=== PATIENT | male | born 1975 | race Caucasian/White ===

== ENCOUNTER 2017-08-13 14:15 | Outpatient (RCR) | payer MEDICAID, SELFPAY ==
[2017-01-25 12:53] VITALS: BMI 38.2
[2017-07-30 00:32] VITALS: BP 170/60; BP 90/58
== END 2017-08-29 23:59 ==
LOC: CR 14:15
PROVIDERS: Family Provider Internal Medicine; PCP Internal Medicine; Visit Provider Internal Medicine Cardiovascular Disease
DX: Z95.5 Presence of coronary angioplasty implant and graft (principal); I25.10 Atherosclerotic heart disease of native coronary artery without angina pectoris; I10 Essential (primary) hypertension; E78.5 Hyperlipidemia, unspecified; G47.33 Obstructive sleep apnea (adult) (pediatric); F17.200 Nicotine dependence, unspecified, uncomplicated
CPT/HCPCS: 93798

== ENCOUNTER 2017-08-20 06:25 | Day surgery (SDC) | payer MEDICAID, SELFPAY ==
[2017-01-25 12:53] VITALS: BMI 38.2
[2017-08-17 14:20] VITALS: BMI 42.4
[2017-08-20] VITALS (26 sets, daily range): BP systolic 85–126; BP diastolic 38–78; PULSE 53–71; RESP 11–21; TEMP 35.9–36.7; O2SAT 91–99; BMI 38.4
[2017-08-20 09:26] LABS: ACT Activated Clotting Time 219 sec (74-137)
--- NOTE | 2017-08-20 09:30 | EKG12_ITS ---
Test Reason : POST-PCI Blood Pressure : / mmHG Vent. Rate : 058 BPM Atrial Rate : 058 BPM P-R Int : 146 ms QRS Dur : 082 ms QT Int : 410 ms P-R-T Axes : 034 013 018 degrees QTc Int : 402 ms Sinus bradycardia Otherwise normal ECG When compared with ECG of 26-JAN-2017 05:29, No significant change was found Confirmed by HARRISON LIU ([id number]), manager editorial RIA RAMOS ([id number] on 08/23/2017 1:26:59 PM Referred By: Harrison Liu Confirmed By:HARRISON LIU
--- NOTE | 2017-08-20 09:34 | CRPHASE1 ---
Patient Data/Charges Former Patient:: Phase II - Pt is currently a phase II pt in cardiac rahab. Risk Factors/Lifestyle Family History: Family History (Last Updated 08/15/17 @ 09:53 by Gunner Lynch) Father Heart disease Brother CAD (coronary artery disease)
--- NOTE | 2017-08-20 09:35 | CRPH1.INSTRU ---
General Education CAD and cardiac anatomy and function:: Not instructed - Pt is a current Cardiac Phase II patient.
--- NOTE | 2017-08-20 09:39 | CL.I_ITS ---
Patient Name: HU PEREZ Study Date: 08/20/2017 Performing: Haider Liu MD Ht: 61.81 inches 157 cm : 1975 Wt: 231.49 lbs 105 kg Age: 41 Gender: male BSA: 2.03 PROCEDURE(S) PERFORMED WB90-EQB/COR/LV BI36-CYL W OR WO PTCA, SINGLE CORONARY ARTERY CLINICAL PROFILE AND CO-MORBIDITIES INDICATIONS: Unstable Angina Stress/Imaging Stress Echocardiogram: Yes Result: Indeterminant Stress Echocardiogram: Indetermin ant Angina Classification Anginal Classification w/in 2 Weeks: CCS III CAD Presentations: Unstable angina. Comorbidities/Risk Factors: Current/Recent Smoker (< 1year) Hypertension Dyslipidemia Prior NC Prior PCI CONCLUSIONS Single vessel CAD of the Proximal RCA Normal LV size, wall motion,and systolic function Non obstructive coronary arteries Successful PTCA/YOHANA of the proximal RCA with a 2.5 x 32 Promus Synergy, post dilated with a 3.0 x 12 NC balloon. 75%-->0%, no dissection. RECOMMENDATIONS Referred for immediate PCI Highly recommend quitting all tobacco products Follow up with primary blade groover Risk factor modification ASA Indefinitley Plavix for at least 12 months Routine post interventional care Refer for Outpatient Cardiac Rehab Manual sheath removal per protocol Manual sheath removal. Tobacco cessation. DESCRIPTION OF PROCEDURE The patient arrived to the procedure lab. The risks and benefits of the procedure as well as a full d escription of our services here and lack of surgical backup were fully explained to the patient and/o r their significant other prior to the catheterization. The Timeout was completed, verifying the jose raul ect patient and procedure. The patient's procedural site was prepped and draped in the usual fashion. Local anesthetic was given subcutaneously to right groin region with Lidocaine 2%. Using a modified Seldinger technique, arterial access was obtained via the right femoral artery, a 4Fr sheath was inse rted. Left Coronary Artery selective angiography was performed in multiple views using a 4 Fr. JL5 c atheter. Left Coronary Artery selective angiography was performed in multiple views using a 4 Fr. JL4 catheter. Right Coronary Artery selective angiography was then performed in multiple views using a 4 Fr. 3DRC catheter. Left Ventriculography was performed in PASTRANA projection using a [address] LV to AO pullback pressures were then recorded Arterial sheath was exchanged for a 6 Fr Sheath HS I Guide catheter was inserted and engaged into the RCA. Santa [place]sabel Wire Guide wire was advanced to the RCA. 2.0 by 12 emerge Balloon catheter was insert ed. Balloon catheter was advanced across lesion in the right coronary, proximal. 2.[address] ug Eluting stent was inserted Drug Eluting stent was advanced across the lesion in the right coronary , proximal. 2.5 by 12 NC Balloon catheter was inserted. Balloon catheter was inserted post stent. 3.0 by 12 NC Balloon catheter was inserted. Balloon catheter was inserted post stent.. . The arterial s junior was sutured in place and capped. CORONARY ANGIOGRAPHY DOMINANCE: Right Dominant LEFT HEART ASSESSMENT Left Ventricular Ejection Fraction: by LV Gram 65 % Normal Left Ventricular systolic function Normal Left Ventricular End Diastolic Pressure Normal LV wall motion LEFT MAIN: Angiographically normal LEFT ANTERIOR DECENDING ARTERY: MID LAD: 40 % Stenosis CIRCUMFLEX ARTERY: Mild luminal irregularities less than 30% OM 1: Proximal - Instent restenosis 10 % RIGHT CORONARY ARTERY: PROX RCA: 75 % Stenosis RT PDA: Proximal - Angiographically normal INTERVENTION INFORMATION LESION SITE: RCA (Proximal) Lesion Complexity: High/C, lesion at bifurcation: Yes, thrombus present: No, lesion length: 32 mm, cu lprit lesion: Yes Pre Stenosis: 75 % Pre intervention CHETAN flow: 3 PROCEDURE: Drug Eluting Stent with pre and post dilatation Post Stenosis: 0 % Post intervention CHETAN flow: 3 Lesion Devices: Evomailtronic 6 Fr HS1 100cm Guide Catheter Baron .014 [employer] [place] Straight 190cm [employer] EMERGE MR 2.00x12 BALLOON [employer] Synergy MR YOHANA 2.50x32 Jay [employer] NC EMERGE MR 2.50x12 BALLOON Jay [employer] NC EMERGE MR 3.00x12 BALLOON COMPLICATIONS No Complications PROCEDURE MEDICATIONS Oxygen: 2 L/min via nasal cannula Heparin 6000 unit(s) IV 08/20/2017 08:53:35 Nitro 200 mcg IC 08/20/2017 08:48:05 Nitro 200 mcg IC 08/20/2017 08:48:05 IV Bolus: .9 NaCl 350 ml total 08/20/2017 09:12:32 IV Fluids: .9 NaCl increased to wide open ml/hr 08/20/2017 08:56:02 IV Fluids: .9 NaCl decreased to KVO ml/hr 08/20/2017 09:12:37 SUMMARY OF HEMODYNAMIC DATA Time AIR REST ECG 07:01:33 AO 109/78 (93) SA 08:41:32 LV 117/-11, 15 08:51:32 LV 116/-11, 15 08:51:39 LV 118/-10, 14 08:51:53 LVp 119/-10, 14 08:51:57 AOp 115/68 (89) 08:52:02 AO 121/75 (94) 08:55:50 Signed By Haider Liu MD On 08/20/2017 09:39:23 Haider Liu MD
[2017-08-20] MEDS: 0.9% Normal Saline 1,000 ML 150 ML IV (10:02)
--- NOTE | 2017-08-20 10:09 | NURSING ---
Alerted to back wounds from pt's Filomena- x2 wounds w/ sutures in place. Unable to assess at this time d/t bedrest from heart cath. Will assess when able to move pt from side to side.
[2017-08-20 10:28] LABS: Hematocrit 40.4 % (40-54); Hemoglobin 13.2 g/dl (13.0-16.5); Mean Corp Hgb Conc 32.7 g/gl (32-36); Mean Corpuscular Hgb 30.1 pg (27.0-32.0); Mean Corpuscular Volume 92.2 fL (80-94); Platelet Count 217 K/mm3 (150-450); RBC Distribution Width CV 13.7 % (11.6-14.6); RBC Distribution Width SD 46.5 fl (35.1-43.9); Red Blood Count 4.38 M/mm3 (4.6-6.2); White Blood Count 8.9 K/mm3 (4.4-11.0)
[2017-08-20 10:32] LABS: Scan Indicated on CBC? Y/N NO
[2017-08-20 10:34] LABS: CPK Total, Creatine Kinase 94 U/L (39-308)
[2017-08-20 11:26] LABS: ACT Activated Clotting Time 147 sec (74-137)
--- NOTE | 2017-08-20 11:26 | NURSING ---
Spoke w/ Zeke in labor and delivery registered nurse; he will be coming to pull sheath
--- NOTE | 2017-08-20 13:56 | PCM.DC.CCA ---
Discharge Diet: Low fat/ Low Cholesterol Discharge Activity: Return to Normal Activity May shower in (days): 1 May resume sexual activity in: 10-14 days Lifting Restrictions: Do not lift anything greater than 10 pounds for three days. Call your doctor if your incision/area has: Continuous Slow Oozing, Sudden Increased Bleeding, Increased Pain/ Swelling, Increased Redness, Foul Smelling Discharge, Swelling at the incision site Call your doctor if you observe: Fever of 101 or Higher, Shortness of breath, Chest pain Remove Dressing in (days):: 1 Cleanse incision/area with: Soap & Water Additional Instructions: You will continue with Plavix 75mg for at least one year. You will stay on Aspirin indefinitely. If anyone asks you to stop your plavix, please call the [facility] first. Your are scheduled to see Gregorio Wei Nurse Practitioner, in the office on 09/17/17 at 10:30 AM to evaluated how you are doing and discuss cardiac rehab. If you have any questions do not hesitate to call the [facility] at [phone]. Allergies/Adverse Reactions: Allergies Penicillins Allergy (Verified 03/02/16 18:22) Unknown olanzapine [From Zyprexa] Adverse Reaction (Severe, Verified 08/15/17 09:11) aggresion/sleepiness Medications to take at Discharge Aspirin [Aspirin, Baby] 81 mg PO DAILY@0800 03/02/16 Brexpiprazole [Rexulti] 3 mg PO DAILY 01/24/17 Clopidogrel Bisulfate [Plavix] 75 mg PO DAILY #60 tab 01/26/17 Metoprolol Tartrate [Lopressor (beta marely)] 12.5 mg PO BID #30 tab 01/26/17 Nitroglycerin [Nitrostat] 0.4 mg SUBLINGUAL Q5M PRN #1 bottle 01/26/17 insulin glargine 100 unit/mL subcutaneous solution 30 units SC QHS 08/14/17 fenofibrate 54 mg tablet 54 mg PO QDAY 08/15/17 isosorbide mononitrate ER 60 mg tablet,extended release 24 hr 30 mg PO BID #30 tab 08/15/17 metformin 1,000 mg tablet 500 mg PO BID tab 08/15/17 pantoprazole 40 mg tablet,delayed release 40 mg PO QDAY 08/15/17 Primary Care Physician: Maral Balderrama [Primary Care Provider] - Please Follow Up With: Gregorio Wei Nurse Practitioner When: 09/17/2017 @ 10:30 AM Proposed Discharge Date: 08/21/17 Cardiac Rehabilitation Info Cardiac Rehabilitation Program Information: Cardiac Rehabilitation is important for patients like you who are recovering from a heart problem. Cardiac rehabilitation programs are recognized as integral to the continued care of the patient with coronary heart disease. The cardiac rehabilitation program is designed to optimize a patient's physical, psychological, and social functioning. Health child care lead teacher work in cardiac rehabilitation programs and assist you with getting the treatments you need to get stronger and healthier - like exercise, healthy eating habits, and medications. Cardiac rehabilitation has been show to help people with heart problems live longer and have better life enjoyment than people who do not go to cardiac rehabilitation. Please contact the Cardiac Rehabilitation Program at [facility] at in two weeks if you have not heard from them.
--- NOTE | 2017-08-20 14:02 | DCINST_ITS ---
Discharge Diet: Low fat/ Low Cholesterol Discharge Activity: Return to Normal Activity May shower in (days): 1 May resume sexual activity in: 10-14 days Lifting Restrictions: Do not lift anything greater than 10 pounds for three days. Call your doctor if your incision/area has: Continuous Slow Oozing, Sudden Increased Bleeding, Increased Pain/ Swelling, Increased Redness, Foul Smelling Discharge, Swelling at the incision site Call your doctor if you observe: Fever of 101 or Higher, Shortness of breath, Chest pain Remove Dressing in (days):: 1 Cleanse incision/area with: Soap & Water Additional Instructions: You will continue with Plavix 75mg for at least one year. You will stay on Aspirin indefinitely. If anyone asks you to stop your plavix, please call the [facility] first. Your are scheduled to see Gregorio Wei Nurse Practitioner, in the office on at 10:30 AM to evaluated how you are doing and discuss cardiac rehab. If you have any questions do not hesitate to call the [facility] at . Allergies/Adverse Reactions: Allergies Penicillins Allergy (Verified 03/02/16 18:22) Unknown olanzapine [From Zyprexa] Adverse Reaction (Severe, Verified 08/15/17 09:11) aggresion/sleepiness Medications to take at Discharge Aspirin [Aspirin, Baby] 81 mg PO DAILY@0800 03/02/16 Brexpiprazole [Rexulti] 3 mg PO DAILY 01/24/17 Clopidogrel Bisulfate [Plavix] 75 mg PO DAILY #60 tab 01/26/17 Metoprolol Tartrate [Lopressor (beta marely)] 12.5 mg PO BID #30 tab 01/26/17 Nitroglycerin [Nitrostat] 0.4 mg SUBLINGUAL Q5M PRN #1 bottle 01/26/17 insulin glargine 100 unit/mL subcutaneous solution 30 units SC QHS 08/14/17 fenofibrate 54 mg tablet 54 mg PO QDAY 08/15/17 isosorbide mononitrate ER 60 mg tablet,extended release 24 hr 30 mg PO BID #30 tab 08/15/17 metformin 1,000 mg tablet 500 mg PO BID tab 08/15/17 pantoprazole 40 mg tablet,delayed release 40 mg PO QDAY 08/15/17 Primary Care Physician: Maral Balderrama [Primary Care Provider] - Please Follow Up With: Gregorio Wei Nurse Practitioner When: 09/17/2017 @ 10:30 AM Proposed Discharge Date: 08/21/17 Cardiac Rehabilitation Info Cardiac Rehabilitation Program Information: Cardiac Rehabilitation is important for patients like you who are recovering from a heart problem. Cardiac rehabilitation programs are recognized as integral to the continued care of the patient with coronary heart disease. The cardiac rehabilitation program is designed to optimize a patient's physical, psychological, and social functioning. Health medical care administrator work in cardiac rehabilitation programs and assist you with getting the treatments you need to get stronger and healthier - like exercise, healthy eating habits, and medications. Cardiac rehabilitation has been show to help people with heart problems live longer and have better life enjoyment than people who do not go to cardiac rehabilitation. Please contact the Cardiac Rehabilitation Program at [facility] at in two weeks if you have not heard from them.
[2017-08-20] MEDS: Pantoprazole Sodium 40 MG Tablet PO (16:33)
[2017-08-20] MEDS: 0.9% NaCl Peripheral Flush Adult/Peds IV ×3 (16:33→21:36)
[2017-08-20 16:52] LABS: Hematocrit 38.7 % (40-54); Mean Corp Hgb Conc 33.6 g/gl (32-36); Mean Corpuscular Hgb 30.9 pg (27.0-32.0); Mean Corpuscular Volume 91.9 fL (80-94); Platelet Count 214 K/mm3 (150-450); RBC Distribution Width CV 13.8 % (11.6-14.6); RBC Distribution Width SD 45.2 fl (35.1-43.9); Red Blood Count 4.21 M/mm3 (4.6-6.2); White Blood Count 10.4 K/mm3 (4.4-11.0)
[2017-08-20 16:53] LABS: Scan Indicated on CBC? Y/N NO
[2017-08-20 17:23] LABS: CPK Total, Creatine Kinase 78 U/L (39-308)
[2017-08-20 21:05] LABS: Hematocrit 40.4 % (40-54); Hemoglobin 13.4 g/dl (13.0-16.5); Mean Corp Hgb Conc 33.2 g/gl (32-36); Mean Corpuscular Hgb 30.4 pg (27.0-32.0); Mean Corpuscular Volume 91.6 fL (80-94); Mean Platelet Vol. 10.6 fl (6.2-12.0); Platelet Count 222 K/mm3 (150-450); RBC Distribution Width CV 13.8 % (11.6-14.6); RBC Distribution Width SD 46.8 fl (35.1-43.9); Red Blood Count 4.41 M/mm3 (4.6-6.2); Scan Indicated on CBC? Y/N NO; White Blood Count 10.4 K/mm3 (4.4-11.0)
[2017-08-20 21:21] LABS: CPK Total, Creatine Kinase 78 U/L (39-308)
[2017-08-20 21:47] LABS: Bedside Glucose 233 mg/dL (70-110)
[2017-08-21] VITALS (15 sets, daily range): BP systolic 86–141; BP diastolic 41–74; PULSE 54–65; RESP 11–20; TEMP 36.4–36.7; O2SAT 91–95
[2017-08-21] MEDS: 0.9% NaCl Peripheral Flush Adult/Peds IV (04:03)
[2017-08-21 04:20] LABS: Hematocrit 40.3 % (40-54); Hemoglobin 13.7 g/dl (13.0-16.5); Mean Corpuscular Hgb 31.1 pg (27.0-32.0); Mean Corpuscular Volume 91.4 fL (80-94); Platelet Count 236 K/mm3 (150-450); RBC Distribution Width CV 13.7 % (11.6-14.6); RBC Distribution Width SD 45.5 fl (35.1-43.9); Red Blood Count 4.41 M/mm3 (4.6-6.2); White Blood Count 10.9 K/mm3 (4.4-11.0)
[2017-08-21 04:23] LABS: Scan Indicated on CBC? Y/N NO
[2017-08-21 04:28] LABS: Anion Gap 8 (5-15); BUN 19 mg/dL (7-18); Calcium,Total 8.7 mg/dL (8.5-10.1); Chloride 107 mmol/L (98-107); EST Glomerular Filtration Rate 99 mL/min (>60); Est Glom Filt Rate - Afr Amer 119 mL/min (>60); Estimated Creatinine Clearance 94.91 ml/min; Glucose 104 mg/dL (70-110); Sodium Level 140 mmol/L (136-145)
--- NOTE | 2017-08-21 05:55 | EKG12_ITS ---
Test Reason : AM EKG Blood Pressure : / mmHG Vent. Rate : 060 BPM Atrial Rate : 060 BPM P-R Int : 134 ms QRS Dur : 082 ms QT Int : 396 ms P-R-T Axes : 016 004 015 degrees QTc Int : 396 ms Normal sinus rhythm Inferior infarct , age undetermined Abnormal ECG When compared with ECG of 26-JAN-2017 05:29, Inferior infarct is now Present Confirmed by HARRISON LIU ([id number]), manuscript editor RIA RAMOS ([id number]) on 08/23/2017 1:47:43 PM Referred By: Harrison Liu Confirmed By:HARRISON LIU
[2017-08-21] MEDS: Clopidogrel Bisulfate 75 MG Tablet PO (09:36)
[2017-08-21] MEDS: Metoprolol Tartrate 25 MG Tablet 12.5 MG PO (09:36)
[2017-08-21] MEDS: Pantoprazole Sodium 40 MG Tablet PO (09:36)
[2017-08-21] MEDS: Isosorbide Mononitrate 30 MG Tablet PO (09:36)
[2017-08-21] MEDS: Fenofibrate 48 MG Tablet PO (09:37)
[2017-08-21] MEDS: Aspirin 81 MG TAB.CHEW PO (09:37)
--- NOTE | 2017-08-21 09:43 | PCM.PN.CARD ---
Subjectve: Patient doing very well this morning. No further chest pain with laying down which was his anginal equivalent. Telemetry negative. EKG normal sinus rhythm, no acute changes. CKs are negative. Right groin is clean/dry/intact without evidence of hematoma, thrills or bruits. Hemoglobin and creatinine are within nominal limits. Objective: Vital Signs Temp Pulse Resp BP Pulse Ox 97.6 F L 65 20 H 122/74 H 93 08/21/17 06:00 08/21/17 09:36 08/21/17 06:00 08/21/17 06:00 08/21/17 06:00 Oxygen Flow Rate 2 Oxygen Delivery Method Room Air Weight: 231 lb Body Mass Index (BMI) 38.4 Intake and Output for Last 24 Hours 08/19/17 08/20/17 08/21/17 23:59 23:59 23:59 Intake Total 1942 / 1942 300 / 300 Output Total 1800 / 1800 600 / 600 Balance 142 / 142 -300 / -300 General: Awake, Alert, Oriented x 3 HEENT: PERRL, EOMI, Sclera Non Icteric Neck: Supple, Good ROM, No Lymph Node Enlargement Lungs: Clear to auscultation Cardiovascular: Regular Rhythm, Normal S1, Normal S2, No Murmurs, No Rubs, No Gallops Vascular: No Carotid Bruits, Normal Femoral Pulses, Normal Radial Pulses, Normal Dorsalis Pedal Pulse, Normal Posterior Tibial Pulses Abdomen: Bowel Sounds Present, Soft, Non Tender, No HSM, No Organomegaly Extremities: No Cyanosis, No Clubbing, No edema Neurological: No Focal Motor or Sensory Deficit 08/20/17 09:45: WBC 8.9, RBC 4.38 L, Hgb 13.2, Hct 40.4, MCV 92.2, MCH 30.1, MCHC 32.7, RDW 13.7, RDW Differential 46.5 H, Plt Count 217, MPV 11.0 08/20/17 16:30: WBC 10.4, RBC 4.21 L, Hgb 13.0, Hct 38.7 L, MCV 91.9, MCH 30.9, MCHC 33.6, RDW 13.8, RDW Differential 45.2 H, Plt Count 214, MPV 11.0 08/20/17 20:50: WBC 10.4, RBC 4.41 L, Hgb 13.4, Hct 40.4, MCV 91.6, MCH 30.4, MCHC 33.2, RDW 13.8, RDW Differential 46.8 H, Plt Count 222, MPV 10.6 08/21/17 04:00: WBC 10.9, RBC 4.41 L, Hgb 13.7, Hct 40.3, MCV 91.4, MCH 31.1, MCHC 34.0, RDW 13.7, RDW Differential 45.5 H, Plt Count 236, MPV 11.0 08/21/17 04:00: Sodium 140, Potassium 4.0, Chloride 107, Carbon Dioxide 25.0, Anion Gap 8, BUN 19 H, Creatinine 0.90, Est GFR (MDRD) Af Amer 119, Est GFR (MDRD) Non-Af 99, BUN/Creatinine Ratio 21.0 H, Glucose 104, Calcium 8.7 Rhythm: EKG: ECHO: Stress Test: Cardiac Cath: PCI: CT Surgery: Holter monitor: EPS: PPM: CXR: Chest CT Scan: Assessment/Plan 1. Coronary artery disease: Patient's chest pain with recumbency has completely resolved with angioplasty and stenting of his RCA yesterday. Hopefully this is his anginal equivalent and has been resolved with angioplasty. Recommend he continue his baby aspirin, Plavix, and antihypertensive medications. Patient will remain off work for 1 week's time to allow his groin to heal and then may resume. He will follow-up per protocol in our office. Once his groin is healed he can resume cardiac rehab. 2. Hyperlipidemia: Continue statin based medications. We will repeat his lipid profile at the conclusion of cardiac rehab. 3. Patient may be discharged home. Code Visit Inpatient E&M: 57421 Subs Hosp L2
--- NOTE | 2017-08-21 09:46 | PN.CARD_ITS ---
Subjectve: Patient doing very well this morning. No further chest pain with laying down which was his anginal equivalent. Telemetry negative. EKG normal sinus rhythm , no acute changes. CKs are negative. Right groin is clean/dry/intact without evidence of hematoma, thrills or bruits. Hemoglobin and creatinine are within nominal limits. Objective: Vital Signs Temp Pulse Resp BP Pulse Ox 97.6 F L 65 20 H 122/74 H 93 08/21/17 06:00 08/21/17 09:36 08/21/17 06:00 08/21/17 06:00 08/21/17 06:00 Oxygen Flow Rate 2 Oxygen Delivery Method Room Air Weight: 231 lb Body Mass Index (BMI) 38.4 Intake and Output for Last 24 Hours 08/19/17 08/20/17 08/21/17 23:59 23:59 23:59 Intake Total 1942 / 1942 300 / 300 Output Total 1800 / 1800 600 / 600 Balance 142 / 142 -300 / -300 General: Awake, Alert, Oriented x 3 HEENT: PERRL, EOMI, Sclera Non Icteric Neck: Supple, Good ROM, No Lymph Node Enlargement Lungs: Clear to auscultation Cardiovascular: Regular Rhythm, Normal S1, Normal S2, No Murmurs, No Rubs, No Gallops Vascular: No Carotid Bruits, Normal Femoral Pulses, Normal Radial Pulses, Normal Dorsalis Pedal Pulse, Normal Posterior Tibial Pulses Abdomen: Bowel Sounds Present, Soft, Non Tender, No HSM, No Organomegaly Extremities: No Cyanosis, No Clubbing, No edema Neurological: No Focal Motor or Sensory Deficit 08/20/17 09:45: WBC 8.9, RBC 4.38 L, Hgb 13.2, Hct 40.4, MCV 92.2, MCH 30.1, MCHC 32.7, RDW 13.7, RDW Differential 46.5 H, Plt Count 217, MPV 11.0 08/20/17 16:30: WBC 10.4, RBC 4.21 L, Hgb 13.0, Hct 38.7 L, MCV 91.9, MCH 30.9, MCHC 33.6, RDW 13.8, RDW Differential 45.2 H, Plt Count 214, MPV 11.0 08/20/17 20:50: WBC 10.4, RBC 4.41 L, Hgb 13.4, Hct 40.4, MCV 91.6, MCH 30.4, MCHC 33.2, RDW 13.8, RDW Differential 46.8 H, Plt Count 222, MPV 10.6 08/21/17 04:00: WBC 10.9, RBC 4.41 L, Hgb 13.7, Hct 40.3, MCV 91.4, MCH 31.1, MCHC 34.0, RDW 13.7, RDW Differential 45.5 H, Plt Count 236, MPV 11.0 08/21/17 04:00: Sodium 140, Potassium 4.0, Chloride 107, Carbon Dioxide 25.0, Anion Gap 8, BUN 19 H, Creatinine 0.90, Est GFR (MDRD) Af Amer 119, Est GFR ( MDRD) Non-Af 99, BUN/Creatinine Ratio 21.0 H, Glucose 104, Calcium 8.7 Rhythm: EKG: ECHO: Stress Test: Cardiac Cath: PCI: CT Surgery: Holter monitor: EPS: PPM: CXR: Chest CT Scan: Assessment/Plan 1. Coronary artery disease: Patient's chest pain with recumbency has completely resolved with angioplasty and stenting of his RCA yesterday. Hopefully this is his anginal equivalent and has been resolved with angioplasty. Recommend he continue his baby aspirin, Plavix, and antihypertensive medications. Patient will remain off work for 1 week's time to allow his groin to heal and then may resume. He will follow-up per protocol in our office. Once his groin is healed he can resume cardiac rehab. 2. Hyperlipidemia: Continue statin based medications. We will repeat his lipid profile at the conclusion of cardiac rehab. 3. Patient may be discharged home. Code Visit Inpatient E&M: 93509 Subs Hosp L2
== END 2017-08-21 12:10 | disposition home or self-care (01) ==
LOC: CLSP 06:25 → ICU 09:31
PROVIDERS: Family Provider Internal Medicine; PCP Internal Medicine; Visit Provider Internal Medicine Cardiovascular Disease
DX: I25.10 Atherosclerotic heart disease of native coronary artery without angina pectoris (principal); I10 Essential (primary) hypertension; E11.9 Type 2 diabetes mellitus without complications; E78.5 Hyperlipidemia, unspecified; I24.9 Acute ischemic heart disease, unspecified; F32.9 Major depressive disorder, single episode, unspecified; G47.33 Obstructive sleep apnea (adult) (pediatric); F20.9 Schizophrenia, unspecified; I25.2 Old myocardial infarction; Z72.0 Tobacco use; Z95.5 Presence of coronary angioplasty implant and graft; Z79.82 Long term (current) use of aspirin; Z79.84 Long term (current) use of oral hypoglycemic drugs; Z79.899 Other long term (current) drug therapy
CPT/HCPCS: 80048; 82550; 82962; 85027; 85347; 92928; 93005; 93458; J7030; J7040; A4216; C1725; C1769; C1874; C1887; C1894; C9600; Q9967

== ENCOUNTER → 2017-09-11 07:30 | Outpatient (CLI) | payer MEDICAID, SELFPAY ==
[2017-01-25 12:53] VITALS: BMI 38.2
--- NOTE | 2017-09-11 07:37 | PCM.CR.HP2 ---
CR - History & Physical - General Arrival date:: 09/11/17 Arrival time:: 07:38 Date of Admission: 09/11/17 Referring Physician: Dr. Haider Liu Primary Diagnosis: Unstable angina, PCI w/coronary stent - History of Present Cardiac Event Onset Date: Enter Onset Date of cardiac illnesses in Comment field below Angina:: Yes - 08/20/2017 PTCA:: Yes - 08/20/2017 Type of Symptoms:: unstable angina pectoris resulting in emergency room visit. Alexandra has a previous history of CAD status post coronary stenting to OM #1 in December 2016. Interventions with present event:: Re-do cardiac catheterization Were there any complications?: none - Medications Home Medications: Ambulatory Orders Medication Instructions Recorded Aspirin [Aspirin, Baby] 81 mg PO DAILY@0800 03/02/16 Brexpiprazole [Rexulti] 3 mg PO DAILY 01/24/17 Clopidogrel Bisulfate [Plavix] 75 mg PO DAILY #60 tab 01/26/17 Metoprolol Tartrate [Lopressor 12.5 mg PO BID #30 tab 01/26/17 (beta marely)] Nitroglycerin [Nitrostat] 0.4 mg SUBLINGUAL Q5M PRN #1 bottle 01/26/17 insulin glargine (U-100) 100 30 units SC QHS 08/14/17 unit/mL subcutaneous solution fenofibrate 54 mg tablet 54 mg PO QDAY 08/15/17 isosorbide mononitrate ER 60 mg 30 mg PO BID #30 tab 08/15/17 tablet,extended release 24 hr metformin 1,000 mg tablet 500 mg PO BID tab 08/15/17 pantoprazole 40 mg tablet,delayed 40 mg PO QDAY 08/15/17 release - Allergies Allergies/Adverse Reactions: Allergies Penicillins Allergy (Verified 03/02/16 18:22) Unknown olanzapine [From Zyprexa] Adverse Reaction (Severe, Verified 08/15/17 09:11) aggresion/sleepiness - Sleep Disorder Evaluation Hx of Sleep Apnea: Yes Do you snore loudly (louder than talking or can be heard through closed doors)?: Yes Do you often feel tired/ fatigued/ sleepy during daytime?: Yes Has anyone observed you stop breathing during sleep?: No - Patient is treated for his RENETTA. History of Hypertension (for STOP score): Yes STOP Results: Positive Advanced Directives - Advanced Directives Power of Station Detective: No Living Will: No Advance Directives Information Provided: Yes Advance Directives on File: No DNR Order?:: No Past Medical History - Problems and Co-Morbidities Problems & Co-Morbidities: Smoking - history of tobacco nicotine dependency, Dyslipidemia, Diabetes - Type II DM, Obesity, Hypertension, Depression - Acute, - - Schizophrenia (acute-inactive) - Past Medical Illness Past Medical Illness: Diabetes Other Medical Illnesses:: Acute chest pain (resolved), obstructive sleep apnea - Past Cardiac Illness Past Cardiac Illness: Ejection Fraction - 65%, Coronary Artery Disease, Previous PCI w/Stent - December 2016 Other Cardiac Illnesses:: atherosclerosis of [place] coronary artery wihtout angina pectoris, Acute Coroanry Syndrome, - Cardiology Procedures/Interventions Cardiology Procedures/Interventions: Angioplasty, PCI w/Stenting, Heart Catheterization, Echocardiogram - Past Surgical History Surgical History: appendectomy, cholecystectomy, - - Walking boot due to fracture - Family History Summary Additional Family History: father heart disease, brother CAD Review of Systems - Review of Systems Hints: Right click = Denies ([place]). Left click = Reports ([facility]) Review of Present Symptoms: Reports: Shortness of Breath at Rest, Shortness of Breath with Exertion - sometimes, improved since quit smoking., Angina, Fatigue, Appetite - Normal, Appetite - Special Diet - making changes, but no specific diet plan.. Denies: Dizziness/Lightheadedness, Sleep - Normal - sleep to much, even wearing CPAP at night., Sexual Changes Risk Factor Assessment - Chief Complaint Chief Complaint: Patient is a 41 year old male who presents to cardiac rehab following recent acute angina and chest pain which resulted in an emergency room visit. Patient is under [facility] care of Dr. Haider Liu. The patient was rescheduled for a heart cath procedure which resulted in coronary stenting of [place] coronary artery x one. - Pulse Pulse Rate: 76 - SpO2 96% room air Pulse Rhythm: Regular - Hypertension How long have you been treated?: 1 year On medication(s)?: yes Blood Pressure Sitting - Right Arm: 100/72 - Stress Stress: Recent - pet last night. - Diabetes Diabetic History: Type II, Insulin Dependent Nutrition Referral for Diabetes: Yes - Obesity Height: 5 ft 4 in Weight:: 105.233 kg Weight in Pounds: 232.0 lbs Body Mass Index (BMI): 39.8 Nutritional Referral for Obesity: Yes - Patient could benefit from Diabetic Education and strucutred weight loss. - Physical Inactivity Physical Inactivity: Reg Exercise 30 min/day - Risk Stratification Risk Guidelines: Lowest Risk: Risk Factor for Dyslipidemia, Risk Factor for Hypertension, Risk Factor for Sedentary Lifestyle, Risk Factor for Depression, Moderate Risk: Risk Factor for Diabetes, Highest Risk: Risk Factor for Smoking, Risk Factor for Obesity - For Smoking Smoking Risk Guidelines: Smoking Low Risk: None or quit greater than 6 months ago. Smoking Moderate Risk: Smoker or quit 6 months or less ago. Smoking High Risk: Smoker - For Dyslipidemia Dyslipidemia Risk Guidelines: Low Risk: Moderate Risk: High Risk: 15-25% fat 25.1-29% fat >/= 30% fat. <7% sat fat 7-9% sat fat >9% sat fat. <150 mg chol 150-299 mg chol >/= 300 mg chol. LDL <100 LDL 100-129 LDL >/= 130. Chol/HDL ratio <5.0 Chol/HDL ratio 5.0-6.0 Chol/HDL ratio >6.0. Triglycerides <100 Triglycerides 100-149 Triglycerides >/= 150 - For Diabetes Mellitus Diabetes Risk Guidelines: Diabetes Low Risk: HgA1c <6.5% and/or FBG <120. Diabetes Moderate Risk: HgA1c 6.6-7.9% and/or FBG 120-180. Diabetes High Risk: HgA1c >/= 8% and/or FBG >180 - For Obesity/Overweight Obesity/Overweight Risk Guidelines: Obesity Low Risk: BMI <25.0. Obesity Moderate Risk: BMI 25-29.9. Obesity High Risk: BMI >/= 30.0 - For Hypertension Hypertension Risk Guidelines: Hypertension Low Risk: Systolic <120 and Diastolic <80. Hypertension Moderate Risk: Systolic 120-139 and Diastolic 80-89. Hypertension High Risk: Systolic >/= 140 and Diastolic >/= 90 - For Sedentary Lifestyle Sedentary Lifestyle Risk Guidelines: Sedentary Lifestyle Low Risk: >/= 1,500 kcal/week. Sedentary Lifestyle Moderate Risk: 700-1,499 kcal/week. Sedentary Lifestyle High Risk: < 700 kcal/week - For Depression Depression Risk Guidelines: Depression Low Risk: Not clinically depressed. Depression Moderate Risk: Mildly depressed. Depression High Risk: Clinically depressed - Family History Family History: Family History (Last Updated 08/15/17 @ 09:53 by Gunner Lynch) Father Heart disease Brother CAD (coronary artery disease) Social History - Smoking History Smoking Status: Current some day smoker Years Smokin Packs Smoked per Day: 2 Hx Smoking Cessation Date: 09/07/2017 Hx Tobacco Use: Yes Hx Smoking Exposure: No - Alcohol Use Alcohol Usage: No - Substance Abuse Hx Substance Use: No - Occupation Occupation (List type of work in comments):: Employed Hours worked per day:: 5 Returned to work on:: 09/13/17 - Hobbies, Recreation, Social Activities Hobbies: Sports, Walking Recreational Activities: I am able to engage in all my recreational activities Marital Status - Status Marital Status: - Current Living Arrangements Living Environment:: Family, Spouse - Children How many children do you have?: 3 Do any of your children live nearby?: No - Safety Do you feel safe in your surroundings?: Yes - Assistance Do you need any assistance at home?: none
--- NOTE | 2017-09-11 07:48 | CR.HP_ITS ---
CR - History & Physical - General Arrival date:: 09/11/17 Arrival time:: 07:38 Date of Admission: 09/11/17 Referring Physician: Dr. Haider Liu Primary Diagnosis: Unstable angina, PCI w/coronary stent - History of Present Cardiac Event Onset Date: Enter Onset Date of cardiac illnesses in Comment field below Angina:: Yes - 08/20/2017 PTCA:: Yes - 08/20/2017 Type of Symptoms:: unstable angina pectoris resulting in emergency room visit. Alexandra has a previous history of CAD status post coronary stenting to OM #1 in December 2016. Interventions with present event:: Re-do cardiac catheterization Were there any complications?: none - Medications Home Medications: Ambulatory Orders Medication Instructions Recorded Aspirin [Aspirin, Baby] 81 mg PO DAILY@0800 03/02/16 Brexpiprazole [Rexulti] 3 mg PO DAILY 01/24/17 Clopidogrel Bisulfate [Plavix] 75 mg PO DAILY #60 tab 01/26/17 Metoprolol Tartrate [Lopressor 12.5 mg PO BID #30 tab 01/26/17 (beta marely)] Nitroglycerin [Nitrostat] 0.4 mg SUBLINGUAL Q5M PRN #1 bottle 01/26/17 insulin glargine (U-100) 100 30 units SC QHS 08/14/17 unit/mL subcutaneous solution fenofibrate 54 mg tablet 54 mg PO QDAY 08/15/17 isosorbide mononitrate ER 60 mg 30 mg PO BID #30 tab 08/15/17 tablet,extended release 24 hr metformin 1,000 mg tablet 500 mg PO BID tab 08/15/17 pantoprazole 40 mg tablet,delayed 40 mg PO QDAY 08/15/17 release - Allergies Allergies/Adverse Reactions: Allergies Penicillins Allergy (Verified 03/02/16 18:22) Unknown olanzapine [From Zyprexa] Adverse Reaction (Severe, Verified 08/15/17 09:11) aggresion/sleepiness - Sleep Disorder Evaluation Hx of Sleep Apnea: Yes Do you snore loudly (louder than talking or can be heard through closed doors)? : Yes Do you often feel tired/ fatigued/ sleepy during daytime?: Yes Has anyone observed you stop breathing during sleep?: No - Patient is treated for his R[place]. History of Hypertension (for STOP score): Yes STOP Results: Positive Advanced Directives - Advanced Directives Power of Manufacturing Production Manager: No Living Will: No Advance Directives Information Provided: Yes Advance Directives on File: No DNR Order?:: No Past Medical History - Problems and Co-Morbidities Problems & Co-Morbidities: Smoking - history of tobacco nicotine dependency, Dyslipidemia, Diabetes - Type II DM, Obesity, Hypertension, Depression - Acute, - - Schizophrenia (acute-inactive) - Past Medical Illness Past Medical Illness: Diabetes Other Medical Illnesses:: Acute chest pain (resolved), obstructive sleep apnea - Past Cardiac Illness Past Cardiac Illness: Ejection Fraction - 65%, Coronary Artery Disease, Previous PCI w/Stent - December 2016 Other Cardiac Illnesses:: atherosclerosis of [place] coronary artery wihtout angina pectoris, Acute Coroanry Syndrome, - Cardiology Procedures/Interventions Cardiology Procedures/Interventions: Angioplasty, PCI w/Stenting, Heart Catheterization, Echocardiogram - Past Surgical History Surgical History: appendectomy, cholecystectomy, - - Walking boot due to fracture - Family History Summary Additional Family History: father heart disease, brother CAD Review of Systems - Review of Systems Hints: Right click = Denies ([place]ash). Left click = Reports ([place]) Review of Present Symptoms: Reports: Shortness of Breath at Rest, Shortness of Breath with Exertion - sometimes, improved since quit smoking., Angina, Fatigue , Appetite - Normal, Appetite - Special Diet - making changes, but no specific diet plan.. Denies: Dizziness/Lightheadedness, Sleep - Normal - sleep to much, even wearing CPAP at night., Sexual Changes Risk Factor Assessment - Chief Complaint Chief Complaint: Patient is a 41 year old male who presents to cardiac rehab following recent acute angina and chest pain which resulted in an emergency room visit. Patient is under [facility] care of Dr. Haider Liu. The patient was rescheduled for a heart cath procedure which resulted in coronary stenting of [place] coronary artery x one. - Pulse Pulse Rate: 76 - SpO2 96% room air Pulse Rhythm: Regular - Hypertension How long have you been treated?: 1 year On medication(s)?: yes Blood Pressure Sitting - Right Arm: 100/72 - Stress Stress: Recent - pet last night. - Diabetes Diabetic History: Type II, Insulin Dependent Nutrition Referral for Diabetes: Yes - Obesity Height: 5 ft 4 in Weight:: 105.233 kg Weight in Pounds: 232.0 lbs Body Mass Index (BMI): 39.8 Nutritional Referral for Obesity: Yes - Patient could benefit from Diabetic Education and strucutred weight loss. - Physical Inactivity Physical Inactivity: Reg Exercise 30 min/day - Risk Stratification Risk Guidelines: Lowest Risk: Risk Factor for Dyslipidemia, Risk Factor for Hypertension, Risk Factor for Sedentary Lifestyle, Risk Factor for Depression, Moderate Risk: Risk Factor for Diabetes, Highest Risk: Risk Factor for Smoking, Risk Factor for Obesity - For Smoking Smoking Risk Guidelines: Smoking Low Risk: None or quit greater than 6 months ago. Smoking Moderate Risk: Smoker or quit 6 months or less ago. Smoking High Risk: Smoker - For Dyslipidemia Dyslipidemia Risk Guidelines: Low Risk: Moderate Risk: High Risk: 15-25% fat 25.1-29% fat >/= 30% fat. <7% sat fat 7-9% sat fat >9% sat fat. <150 mg chol 150-299 mg chol >/= 300 mg chol. LDL <100 LDL 100-129 LDL >/= 130. Chol/HDL ratio <5.0 Chol/HDL ratio 5.0-6.0 Chol/HDL ratio >6.0. Triglycerides <100 Triglycerides 100-149 Triglycerides >/= 150 - For Diabetes Mellitus Diabetes Risk Guidelines: Diabetes Low Risk: HgA1c <6.5% and/or FBG <120. Diabetes Moderate Risk: HgA1c 6.6-7.9% and/or FBG 120-180. Diabetes High Risk: HgA1c >/= 8% and/or FBG >180 - For Obesity/Overweight Obesity/Overweight Risk Guidelines: Obesity Low Risk: BMI <25.0. Obesity Moderate Risk: BMI 25-29.9. Obesity High Risk: BMI >/= 30.0 - For Hypertension Hypertension Risk Guidelines: Hypertension Low Risk: Systolic <120 and Diastolic <80. Hypertension Moderate Risk: Systolic 120-139 and Diastolic 80-89. Hypertension High Risk: Systolic >/= 140 and Diastolic >/= 90 - For Sedentary Lifestyle Sedentary Lifestyle Risk Guidelines: Sedentary Lifestyle Low Risk: >/= 1 ,500 kcal/week. Sedentary Lifestyle Moderate Risk: 700-1,499 kcal/week. Sedentary Lifestyle High Risk: < 700 kcal/week - For Depression Depression Risk Guidelines: Depression Low Risk: Not clinically depressed. Depression Moderate Risk: Mildly depressed. Depression High Risk: Clinically depressed - Family History Family History: Family History (Last Updated 08/15/17 @ 09:53 by Gunner Lynch) Father Heart disease Brother CAD (coronary artery disease) Social History - Smoking History Smoking Status: Current some day smoker Years Smokin Packs Smoked per Day: 2 Hx Smoking Cessation Date: 09/07/2017 Hx Tobacco Use: Yes Hx Smoking Exposure: No - Alcohol Use Alcohol Usage: No - Substance Abuse Hx Substance Use: No - Occupation Occupation (List type of work in comments):: Employed Hours worked per day:: 5 Returned to work on:: 09/13/17 - Hobbies, Recreation, Social Activities Hobbies: Sports, Walking Recreational Activities: I am able to engage in all my recreational activities Marital Status - Status Marital Status: - Current Living Arrangements Living Environment:: Family, Spouse - Children How many children do you have?: 3 Do any of your children live nearby?: No - Safety Do you feel safe in your surroundings?: Yes - Assistance Do you need any assistance at home?: none
[2017-09-11 08:05] VITALS: BP 100/72; PULSE 76; BMI 39.8
[2017-09-11 08:55] VITALS: BP 100/72
--- NOTE | 2017-09-11 08:55 | CR.ITP_ITS ---
Exercise - Initial Assessment - Visit Date of Eval: 09/11/17 - initial evaluation PCI 08/20/2017 - Stages of Change Stages of Change:: Action - Exercise Prescription Mode:: Treadmill, Rower, Airdyne, NuStep, Arm Ergometer Angina with exercise?: No Target Heart Rate:: 126-135 - Hypertension Do any of the following apply?: Yes Resting Blood Pressure:: 100/72 - Intervention Home Exercise/Activity Goal:: Moderate Exercise 30 min/day x 5 days/wk - Education Goals:: Warm-up, RPE DI Scale, S/S, Safe Exercise, Self-Monitoring - Exercise Program Goals Exercise Program Goals: Aerobic Activity >30 min, B/P <140/90 Exercise - 30-day Assessment - Stages of Change Stages of Change:: Action - Exercise Prescription Mode:: Treadmill, Rower, Airdyne, NuStep Frequency (x/week): 3 Duration:: 35 METs - Progression: 0.5-1 MET as tolerated: 4.5 Target Heart Rate:: 108-126 - Intervention Home Exercise/Activity Goal:: Sitting Time <3 hrs/day - Education Goals:: Warm-up, RPE DI Scale, S/S, Safe Exercise, Self-Monitoring - Exercise Program Goals Exercise Program Goals: Aerobic Activity >30 min Exercise - 60-Day Assessment - Stages of Change Stages of Change:: Action - Exercise Prescription Mode:: Treadmill, Airdyne, NuStep Frequency (x/week): 3 Duration:: 30 METs: 4.5 Target Heart Rate:: 108/126 Max HR 118 - Intervention Home Exercise/Activity Goal:: Sitting Time <3 hrs/day - Education Goals:: Warm-up, RPE DI Scale, S/S, Safe Exercise, Self-Monitoring - Exercise Program Goals Exercise Program Goals: Aerobic Activity >30 min, B/P <140/90 Exercise - 90-Day Assessment - Stages of Change Stages of Change:: Action - Exercise Prescription Mode:: Treadmill, Airdyne, NuStep Frequency (x/week): 3 Duration:: 30 METs: 4.5 Target Heart Rate:: 108/126 Max HR 118 - Intervention Home Exercise/Activity Goal:: Sitting Time <3 hrs/day - Education Goals:: Warm-up, RPE DI Scale, S/S, Safe Exercise, Self-Monitoring - Exercise Program Goals Exercise Program Goals: Aerobic Activity >30 min, B/P <140/90 Exercise - Final/Discharge - Hypertension Do any of the following apply?: Yes Nutrition - Initial Assessment - Program Goals Nutrition Program Goals: LDL <70. Total Cholesterol <200. HDL >45. Triglycerides <150. HgbA1C <7%. BMI <25 - Visit Date of Assessment:: 09/11/17 - Stages of Change Stages of Change:: Action - Diabetes Diabetes:: Yes Hgb A1C: 6.7 Insulin: Yes - at HS Non-Insulin Dependent?: No Do you monitor your blood sugar at home?: Yes - Weight Management Height: 5 ft 4 in Weight:: 105.233 kg Body Fat %:: 39.8 Total Score:: 2 - Intervention Referral to dietitian:: Yes - Could benefit from strucutred weight loss Referral to Diabetic Clinic:: Yes - Benefit from Diabetic meal planning Will attend diet classes:: Yes - Education Gave educational materials for:: Signs & symptoms of hypoglycemia, Signs & symptoms of hyperglycemia, Relate diabetes to coronary artery disease, Healthy eating Nutrition - 30-Day Assessment - Program Goals Nutrition Program Goals: LDL <70. Total Cholesterol <200. HDL >45. Triglycerides <150. HgbA1C <7%. BMI <25 - Stages of Change Stages of Change:: Action - Lipids Has the patient seen the dietitian?: No - Diabetes Diabetes:: Yes Hgb A1C: 6.7 - Intervention Referral to dietitian:: No Referral to Diabetic Clinic:: No Will attend diet classes:: Yes - Education Attended class for:: Signs & symptoms of hypoglycemia, Signs & symptoms of hyperglycemia, Relate diabetes to coronary artery disease, Healthy eating Nutrition - 60-Day Assessment - Program Goals Nutrition Program Goals: LDL <70. Total Cholesterol <200. HDL >45. Triglycerides <150. HgbA1C <7%. BMI <25 - Stages of Change Stages of Change:: Action - Lipids Has the patient seen the dietitian?: No - Diabetes Diabetes:: Yes Hgb A1C: 6.7 - Intervention Referral to dietitian:: No Referral to Diabetic Clinic:: No Will attend diet classes:: Yes - Education Attended class for:: Signs & symptoms of hypoglycemia, Signs & symptoms of hyperglycemia, Relate diabetes to coronary artery disease, Healthy eating Nutrition - 90-Day Assessment - Program Goals Nutrition Program Goals: LDL <70. Total Cholesterol <200. HDL >45. Triglycerides <150. HgbA1C <7%. BMI <25 - Stages of Change Stages of Change:: Action - Lipids Has the patient seen the dietitian?: No - Diabetes Diabetes:: Yes Hgb A1C: 6.7 - Intervention Referral to dietitian:: No Referral to Diabetic Clinic:: No Will attend diet classes:: Yes - Education Attended class for:: Signs & symptoms of hypoglycemia, Signs & symptoms of hyperglycemia, Relate diabetes to coronary artery disease, Healthy eating Nutrition - Final Assessment - Program Goals Nutrition Program Goals: LDL <70. Total Cholesterol <200. HDL >45. Triglycerides <150. HgbA1C <7%. BMI <25 - Diabetes Diabetes:: Yes Hgb A1C: 6.7 - Weight Management Total Score:: 5 - Intervention Referral to dietitian:: No Referral to Diabetic Clinic:: No Will attend diet classes:: Yes Tobacco - Initial Assessment - Program Goals Tobacco Program Goals: Complete smoking cessation. Attend education classes. Improve Knowledge Test score - Stage of Change Stages of Change:: Action - Learning Barriers Learning Barriers: Cognitive Total Score:: 6 - Family Support Do you have family support?: Yes - Tobacco Use Tobacco Use: Cigarettes How long ago did you quit using tobacco products?: Less than 6 months ago How many cigarettes do you smoke per day?: 0 - last cigarette 09/07/2017 Years Smokin Do you use smokeless tobacco?: No - Intervention Smoking Cessation Referral:: Yes - Smoking Cessation Counselor to see patient Individual Education/Counseling:: Yes Education Schedule Given:: Yes - Education Gave educational material for:: Tobacco triggers, Coronary artery disease, Risk factors, Sexuality, Medical compliance, Cardiac A&P, Angina signs & symptoms Tobacco - 30-Day Assessment - Program Goals Tobacco Program Goals: Complete smoking cessation. Attend education classes. Improve Knowledge Test score - Stage of Change Stages of Change:: Action - Learning Barriers Learning Barriers: Participates in education - Family Support Do you have family support?: Yes - Tobacco Use Do you use smokeless tobacco?: No - Intervention Smoking Cessation Referral:: No Individual Education/Counseling:: No Education Schedule Given:: Yes - Education Attended class for:: Tobacco triggers, Coronary artery disease, Risk factors, Sexuality, Medical compliance, Cardiac A&P, Angina signs & symptoms Tobacco - 60-Day Assessment - Program Goals Tobacco Program Goals: Complete smoking cessation. Attend education classes. Improve Knowledge Test score - Stage of Change Stages of Change:: Action - Family Support Do you have family support?: Yes - Tobacco Use Do you use smokeless tobacco?: No - Intervention Smoking Cessation Referral:: No Individual Education/Counseling:: No Education Schedule Given:: Yes - Education Attended class for:: Tobacco triggers, Coronary artery disease, Risk factors, Sexuality, Medical compliance, Cardiac A&P, Angina signs & symptoms Tobacco - 90-Day Assessment - Program Goals Tobacco Program Goals: Complete smoking cessation. Attend education classes. Improve Knowledge Test score - Stage of Change Stages of Change:: Action - Family Support Do you have family support?: Yes - Tobacco Use Do you use smokeless tobacco?: No - Intervention Smoking Cessation Referral:: No Individual Education/Counseling:: No Education Schedule Given:: Yes - Education Attended class for:: Tobacco triggers, Coronary artery disease, Risk factors, Sexuality, Medical compliance, Cardiac A&P, Angina signs & symptoms Tobacco - Final Assessment - Program Goals Tobacco Program Goals: Complete smoking cessation. Attend education classes. Improve Knowledge Test score - Family Support Do you have family support?: Yes - Tobacco Use Do you use smokeless tobacco?: No - Intervention Smoking Cessation Referral:: No Individual Education/Counseling:: No Education Schedule Given:: Yes Psychosocial - Initial Assess - Target Goals Target Goals: Assess presence or absence of depression. Using a valid screening tool, maximizes coping skills. Positive support system - Stages of Change Stages of Change:: Action - Psychosocial Test Tool Used:: HANDS Depression Questionnaire Tests Completed: SF - 36 survey completed, Mood Scale Test Total Mood Screening Score:: 4 Self-Efficacy Score:: 8 - Intervention PS - Interventions: Yes Attend Stress Management Classes, No Referral to Mental Health, No Referral to [facility] Case Management, No Referral to Physician, No Uses Stress Management Skills - Education Gave educational materials for:: Coping techniques, Signs & symptoms of depression, Stress management, Relaxation techniques - Patient/Program Goal Preventative Medication(s):: Aspirin, NATHEN inhibitor, Clopidogrel, Beta marely, Statin/lipid - Assistive Devices Assistive Devices:: None Fall Risk Assessed:: Yes Psychosocial - 30-Day Assess - Target Goals Target Goals: Assess presence or absence of depression. Using a valid screening tool, maximizes coping skills. Positive support system - Stages of Change Stages of Change:: Action - Psychosocial Test Tool Used:: HANDS Depression Questionnaire - Patient/Program Goal Preventative Medication(s):: Aspirin, NATHEN inhibitor, Clopidogrel, Beta marely, Statin/lipid - Assistive Devices Assistive Devices:: None Fall Risk Assessed:: Yes Psychosocial - 60-Day Assess - Target Goals Target Goals: Assess presence or absence of depression. Using a valid screening tool, maximizes coping skills. Positive support system - Stages of Change Stages of Change:: Action - Psychosocial Test Tool Used:: HANDS Depression Questionnaire - Patient/Program Goal Preventative Medication(s):: Aspirin, NATHEN inhibitor, Clopidogrel, Beta marely, Statin/lipid - Assistive Devices Assistive Devices:: None Fall Risk Assessed:: Yes Psychosocial - 90-Day Assess - Target Goals Target Goals: Assess presence or absence of depression. Using a valid screening tool, maximizes coping skills. Positive support system - Stages of Change Stages of Change:: Action - Psychosocial Test Tool Used:: HANDS Depression Questionnaire - Patient/Program Goal Preventative Medication(s):: Aspirin, NATHEN inhibitor, Clopidogrel, Beta marely, Statin/lipid - Assistive Devices Assistive Devices:: None Fall Risk Assessed:: Yes Psychosocial - Final Assessmen - Target Goals Target Goals: Assess presence or absence of depression. Using a valid screening tool, maximizes coping skills. Positive support system - Psychosocial Test Tool Used:: HANDS Depression Questionnaire - Patient/Program Goal Preventative Medication(s):: Aspirin, NATHEN inhibitor, Clopidogrel, Beta marely, Statin/lipid - Assistive Devices Assistive Devices:: None Fall Risk Assessed:: Yes Patient Health Questionnaire Initial Assessment 1. Little interest or pleasure in doing things: Not at all 2. Feeling down, depressed, or hopeless: Several days 3. Trouble falling or staying asleep, or sleeping too much: Several days 4. Feeling tired or having little energy: Several days 5. Poor appetite or overeating: Several days 6. Feeling bad about yourself -- or that you are a failure or have let yourself or your family down: Several days 7. Trouble concentrating on things, such as reading the newspaper or watching television: Not at all 8. Moving or speaking so slowly that other people could have noticed. Or the opposite - being so fidgety or restless that you have been moving around a lot more than usual: Not at all 9. Thoughts that you would be better off , or of hurting yourself in some way: Not at all How difficult have these problems made it for you to do your work, take care of things at home, or get along with other people?: Not difficult at all Total Score: 5 Knowledge Test - Check your knowledge Initial The #1 cause of in the [place] each year is:: Heart disease Which of the following is a common treatment for heart disease?: All of the above The arteries that feed the heart are called:: Coronary arteries HDL cholesterol is known as the good cholesterol.: False What disease increases your risk for heart disease?: Diabetes What food product raises blood cholesterol level the most?: Saturated fat The bad cholesterol in the blood is called:: HDL Hypertension is another word for:: High blood pressure A blood pressure reading of 148/88 is considered normal.: True Exercise will only benefit your health when your heart rate reaches a target level.: True Total Score:: 6 Self-Efficacy Initial Assessment We would like to know how confident you are in doing certain activities. Please select your confidence level for:: Select your confidence level for the following using the scale 1-10 where 1 is not at all confident and 10 is totally confident. Your score is the average of all 6 responses. Fatigue: How confident are you that you can keep the fatigue caused by your disease from interfering with the things you want to do? Select Number: 8 Physical Discomfort or Pain: How confident are you that you can keep the physical discomfort or pain of your disease from interfering with the things you want to do? Select Number: 8 Emotional Distress: How confident are you that you can keep the emotional distress caused by your disease from interfering with the things you want to do? Select Number: 8 Other Symptoms or Health Problems: How confident are you that you can keep other symptoms or health problems from interfering with the things you want to do? Select Number: 8 Different Tasks and Activities: How confident are you that you can do the different tasks and activities needed to manage your health condition so as to reduce your need to see a doctor? Select Number: 9 Medication: How confident are you that you can do things other than just taking medication to reduce how much your illness affects your everyday life? Select Number: 8 Total Score:: 8 Nutrition Survey - Nutrition Survey Instructions Scoring Instructions: Scoring is as follows: Yes = 1 points. No = 0 point. Patient score that is >/=12 is considered to be at potential nutritional risk and could benefit from a referral to a registered dietitian. - Nutrition Survey Initial Have you lost >10 lbs over the past 2 months without trying?: No Are you following a special diet at home for diabetes, low fat, or low salt?: Yes Are you interested in meeting with a dietitian for help understanding your diet? : No Do you eat less than 3 meals a day?: Yes Do you eat fatty meats (blanton, sausage, ribs, etc), fried foods, desserts, large amounts of salad dressings, margarine, butter, or cheese most days?: No Do you have food allergies? [Enter types in comment field]: No Do you eat in restaurants more than 3 times a week?: No Do you season food with salt, seasoning salt, or garlic salt?: No Cardiac Rehabilitation Goals - Cardiac Rehab Goals Cardiac Rehabilitation Goals: 1. Maintain the individual as the primary focus of care. 2. To improve the patient's quality of life. 3. Identification of cardiac risk factors and provide cardiac risk factor management. 4. Enhance the psychosocial status of the patient. 5. Reconditioning enough to allow the patient to resume customary activities. 6. Control symptoms of cardiac disease - Scale Scale for measuring improvement of personal goals: Enter appropriate number in Comments. 2 = Unchanged. 3 = Slightly Better. 4 = Moderate Improvement. 5 = Met my Goal Initial Assessment Personal Goals: 30-day Re-assessment: Quit smoking (participate in smoking cessation, Improve management of stress and emotions, Improve energy level, Get back to work, or to resume activities faster, Improve diet and eating habits ( eat healthier), Control risk factors (learn risk factor modification)
== END ==
PROVIDERS: Family Provider Internal Medicine; PCP Internal Medicine; Visit Provider Internal Medicine Cardiovascular Disease
DX: I25.10 Atherosclerotic heart disease of native coronary artery without angina pectoris (principal); Z95.5 Presence of coronary angioplasty implant and graft; I10 Essential (primary) hypertension; E78.5 Hyperlipidemia, unspecified; G47.33 Obstructive sleep apnea (adult) (pediatric); E11.9 Type 2 diabetes mellitus without complications

== ENCOUNTER 2017-09-26 11:30 | Outpatient (RCR) | payer MEDICAID, SELFPAY ==
[2017-01-25 12:53] VITALS: BMI 38.2
--- NOTE | 2017-09-25 11:31 | PCM.CR.ITP ---
Exercise - Initial Assessment - Stages of Change Stages of Change:: Action - Exercise Prescription Mode:: Treadmill, Rower, Airdyne, NuStep, Arm Ergometer Angina with exercise?: No Target Heart Rate:: 126-135 - Hypertension Do any of the following apply?: Yes - Intervention Home Exercise/Activity Goal:: Moderate Exercise 30 min/day x 5 days/wk - Education Goals:: Warm-up, RPE DI Scale, S/S, Safe Exercise, Self-Monitoring - Exercise Program Goals Exercise Program Goals: Aerobic Activity >30 min, B/P <140/90 Exercise - 30-day Assessment - Visit Date of Eval: 09/25/17 Session #:: 6 - Stages of Change Stages of Change:: Action - Exercise Prescription Mode:: Treadmill, Rower, Airdyne, NuStep Frequency (x/week): 3 Duration:: 35 METs - Progression: 0.5-1 MET as tolerated: 4 Target Heart Rate:: 126-135 w/ max HR 104 - Hypertension Resting Blood Pressure:: 80/62 Peak Exercise Blood Pressure:: 118/78 Medication Changes:: No - Intervention Home Exercise/Activity Goal:: Moderate Exercise 30 min/day x 5 days/wk - Education Goals:: Warm-up, RPE DI Scale, S/S, Safe Exercise, Self-Monitoring - Exercise Program Goals Exercise Program Goals: Aerobic Activity >30 min Exercise - 60-Day Assessment - Stages of Change Stages of Change:: Action - Exercise Prescription Mode:: Treadmill, Airdyne, NuStep Frequency (x/week): 3 Duration:: 30 - Intervention Home Exercise/Activity Goal:: Sitting Time <3 hrs/day - Education Goals:: Warm-up, RPE DI Scale, S/S, Safe Exercise, Self-Monitoring - Exercise Program Goals Exercise Program Goals: Aerobic Activity >30 min, B/P <140/90 Exercise - 90-Day Assessment - Stages of Change Stages of Change:: Action - Exercise Prescription Mode:: Treadmill, Airdyne, NuStep Frequency (x/week): 3 - Intervention Home Exercise/Activity Goal:: Sitting Time <3 hrs/day - Education Goals:: Warm-up, RPE DI Scale, S/S, Safe Exercise, Self-Monitoring - Exercise Program Goals Exercise Program Goals: Aerobic Activity >30 min, B/P <140/90 Exercise - Final/Discharge - Hypertension Do any of the following apply?: Yes Nutrition - Initial Assessment - Program Goals Nutrition Program Goals: LDL <70. Total Cholesterol <200. HDL >45. Triglycerides <150. HgbA1C <7%. BMI <25 - Stages of Change Stages of Change:: Action - Diabetes Diabetes:: Yes Hgb A1C: 6.7 Non-Insulin Dependent?: No Do you monitor your blood sugar at home?: Yes - Weight Management Body Fat %:: 39.8 - Intervention Referral to dietitian:: No Referral to Diabetic Clinic:: No Will attend diet classes:: Yes - Education Gave educational materials for:: Signs & symptoms of hypoglycemia, Signs & symptoms of hyperglycemia, Relate diabetes to coronary artery disease, Healthy eating Nutrition - 30-Day Assessment - Program Goals Nutrition Program Goals: LDL <70. Total Cholesterol <200. HDL >45. Triglycerides <150. HgbA1C <7%. BMI <25 - Stages of Change Stages of Change:: Action - Lipids Has the patient seen the dietitian?: No - Diabetes Diabetes:: Yes Hgb A1C: 6.7 Insulin: Yes - at HS Non-Insulin Dependent?: No - Weight Management Weight:: 102.285 kg - Intervention Referral to dietitian:: No Referral to Diabetic Clinic:: No Will attend diet classes:: Yes - Education Attended class for:: Signs & symptoms of hypoglycemia, Signs & symptoms of hyperglycemia, Relate diabetes to coronary artery disease, Healthy eating Nutrition - 60-Day Assessment - Program Goals Nutrition Program Goals: LDL <70. Total Cholesterol <200. HDL >45. Triglycerides <150. HgbA1C <7%. BMI <25 - Stages of Change Stages of Change:: Action - Lipids Has the patient seen the dietitian?: No - Diabetes Diabetes:: Yes Hgb A1C: 6.7 Insulin: Yes - at HS Non-Insulin Dependent?: No - Intervention Referral to dietitian:: No Referral to Diabetic Clinic:: No Will attend diet classes:: Yes - Education Attended class for:: Signs & symptoms of hypoglycemia, Signs & symptoms of hyperglycemia, Relate diabetes to coronary artery disease, Healthy eating Nutrition - 90-Day Assessment - Program Goals Nutrition Program Goals: LDL <70. Total Cholesterol <200. HDL >45. Triglycerides <150. HgbA1C <7%. BMI <25 - Stages of Change Stages of Change:: Action - Lipids Has the patient seen the dietitian?: No - Diabetes Diabetes:: Yes Hgb A1C: 6.7 Insulin: Yes - at HS Non-Insulin Dependent?: No - Intervention Referral to dietitian:: No Referral to Diabetic Clinic:: No Will attend diet classes:: Yes - Education Attended class for:: Signs & symptoms of hypoglycemia, Signs & symptoms of hyperglycemia, Relate diabetes to coronary artery disease, Healthy eating Nutrition - Final Assessment - Program Goals Nutrition Program Goals: LDL <70. Total Cholesterol <200. HDL >45. Triglycerides <150. HgbA1C <7%. BMI <25 - Diabetes Diabetes:: Yes Hgb A1C: 6.7 Insulin: Yes - at HS Non-Insulin Dependent?: No - Weight Management Body Fat %:: 39.8 - Intervention Referral to dietitian:: No Referral to Diabetic Clinic:: No Will attend diet classes:: Yes Tobacco - Initial Assessment - Program Goals Tobacco Program Goals: Complete smoking cessation. Attend education classes. Improve Knowledge Test score - Stage of Change Stages of Change:: Action - Learning Barriers Learning Barriers: Cognitive - Family Support Do you have family support?: Yes - Tobacco Use Tobacco Use: Cigarettes How long ago did you quit using tobacco products?: Less than 6 months ago How many cigarettes do you smoke per day?: 0 - last cigarette 09/07/2017 Years Smokin Do you use smokeless tobacco?: No - Intervention Smoking Cessation Referral:: No Individual Education/Counseling:: No Education Schedule Given:: Yes - Education Gave educational material for:: Tobacco triggers, Coronary artery disease, Risk factors, Sexuality, Medical compliance, Cardiac A&P, Angina signs & symptoms Tobacco - 30-Day Assessment - Program Goals Tobacco Program Goals: Complete smoking cessation. Attend education classes. Improve Knowledge Test score - Stage of Change Stages of Change:: Action - Learning Barriers Learning Barriers: Participates in education - Family Support Do you have family support?: Yes - Tobacco Use Tobacco Use: Non-smoker How many cigarettes do you smoke per day?: 0 - last cigarette 09/07/2017 Do you use smokeless tobacco?: No - Intervention Smoking Cessation Referral:: No Individual Education/Counseling:: No Education Schedule Given:: Yes - Education Attended class for:: Tobacco triggers, Coronary artery disease, Risk factors, Sexuality, Medical compliance, Cardiac A&P, Angina signs & symptoms Tobacco - 60-Day Assessment - Program Goals Tobacco Program Goals: Complete smoking cessation. Attend education classes. Improve Knowledge Test score - Stage of Change Stages of Change:: Action - Family Support Do you have family support?: Yes - Tobacco Use How many cigarettes do you smoke per day?: 0 - last cigarette 09/07/2017 Do you use smokeless tobacco?: No - Intervention Smoking Cessation Referral:: No Individual Education/Counseling:: No Education Schedule Given:: Yes - Education Attended class for:: Tobacco triggers, Coronary artery disease, Risk factors, Sexuality, Medical compliance, Cardiac A&P, Angina signs & symptoms Tobacco - 90-Day Assessment - Program Goals Tobacco Program Goals: Complete smoking cessation. Attend education classes. Improve Knowledge Test score - Stage of Change Stages of Change:: Action - Family Support Do you have family support?: Yes - Tobacco Use How many cigarettes do you smoke per day?: 0 - last cigarette 09/07/2017 Do you use smokeless tobacco?: No - Intervention Smoking Cessation Referral:: No Individual Education/Counseling:: No Education Schedule Given:: Yes - Education Attended class for:: Tobacco triggers, Coronary artery disease, Risk factors, Sexuality, Medical compliance, Cardiac A&P, Angina signs & symptoms Tobacco - Final Assessment - Program Goals Tobacco Program Goals: Complete smoking cessation. Attend education classes. Improve Knowledge Test score - Family Support Do you have family support?: Yes - Tobacco Use How many cigarettes do you smoke per day?: 0 - last cigarette 09/07/2017 Do you use smokeless tobacco?: No - Intervention Smoking Cessation Referral:: No Individual Education/Counseling:: No Education Schedule Given:: Yes Psychosocial - Initial Assess - Target Goals Target Goals: Assess presence or absence of depression. Using a valid screening tool, maximizes coping skills. Positive support system - Stages of Change Stages of Change:: Action - Psychosocial Test Tool Used:: HANDS Depression Questionnaire - Intervention PS - Interventions: Yes Attend Stress Management Classes, No Referral to Mental Health, No Referral to [facility] Case Management, No Referral to Physician, No Uses Stress Management Skills - Education Gave educational materials for:: Coping techniques, Signs & symptoms of depression, Stress management, Relaxation techniques - Patient/Program Goal Preventative Medication(s):: Aspirin, NATHEN inhibitor, Clopidogrel, Beta marely, Statin/lipid - Assistive Devices Assistive Devices:: None Fall Risk Assessed:: Yes Psychosocial - 30-Day Assess - Target Goals Target Goals: Assess presence or absence of depression. Using a valid screening tool, maximizes coping skills. Positive support system - Stages of Change Stages of Change:: Action - Psychosocial Test Tool Used:: HANDS Depression Questionnaire - Intervention PS - Interventions: Yes Attend Stress Management Classes, Yes Uses Stress Management Skills, No Referral to Mental Health, No Referral to [facility] Case Management, No Referral to Physician - Education Attended classes for:: Coping techniques, Signs & symptoms of depression, Stress management, Relaxation techniques - Patient/Program Goal Preventative Medication(s):: Aspirin, NATHEN inhibitor, Clopidogrel, Beta marely, Statin/lipid - Assistive Devices Assistive Devices:: None Fall Risk Assessed:: Yes Psychosocial - 60-Day Assess - Target Goals Target Goals: Assess presence or absence of depression. Using a valid screening tool, maximizes coping skills. Positive support system - Stages of Change Stages of Change:: Action - Psychosocial Test Tool Used:: HANDS Depression Questionnaire - Education Attended classes for:: Coping techniques, Signs & symptoms of depression, Stress management, Relaxation techniques - Patient/Program Goal Preventative Medication(s):: Aspirin, NATHEN inhibitor, Clopidogrel, Beta marely, Statin/lipid - Assistive Devices Assistive Devices:: None Fall Risk Assessed:: Yes Psychosocial - 90-Day Assess - Target Goals Target Goals: Assess presence or absence of depression. Using a valid screening tool, maximizes coping skills. Positive support system - Stages of Change Stages of Change:: Action - Psychosocial Test Tool Used:: HANDS Depression Questionnaire - Education Attended classes for:: Coping techniques, Signs & symptoms of depression, Stress management, Relaxation techniques - Patient/Program Goal Preventative Medication(s):: Aspirin, NATHEN inhibitor, Clopidogrel, Beta marely, Statin/lipid - Assistive Devices Assistive Devices:: None Fall Risk Assessed:: Yes Psychosocial - Final Assessmen - Target Goals Target Goals: Assess presence or absence of depression. Using a valid screening tool, maximizes coping skills. Positive support system - Psychosocial Test Tool Used:: HANDS Depression Questionnaire - Patient/Program Goal Preventative Medication(s):: Aspirin, NATHEN inhibitor, Clopidogrel, Beta marely, Statin/lipid - Assistive Devices Assistive Devices:: None Fall Risk Assessed:: Yes Patient Health Questionnaire 30-Day Re-eval Assessment 1. Little interest or pleasure in doing things: Not at all 2. Feeling down, depressed, or hopeless: Several days 3. Trouble falling or staying asleep, or sleeping too much: Several days 4. Feeling tired or having little energy: Several days 5. Poor appetite or overeating: Several days 6. Feeling bad about yourself -- or that you are a failure or have let yourself or your family down: Several days 7. Trouble concentrating on things, such as reading the newspaper or watching television: Not at all 8. Moving or speaking so slowly that other people could have noticed. Or the opposite - being so fidgety or restless that you have been moving around a lot more than usual: Not at all 9. Thoughts that you would be better off , or of hurting yourself in some way: Not at all How difficult have these problems made it for you to do your work, take care of things at home, or get along with other people?: Not difficult at all Total Score: 5 Self-Efficacy 30-Day Re-eval Assessment We would like to know how confident you are in doing certain activities. Please select your confidence level for:: Select your confidence level for the following using the scale 1-10 where 1 is not at all confident and 10 is totally confident. Your score is the average of all 6 responses. Fatigue: How confident are you that you can keep the fatigue caused by your disease from interfering with the things you want to do? Select Number: 9 Physical Discomfort or Pain: How confident are you that you can keep the physical discomfort or pain of your disease from interfering with the things you want to do? Select Number: 9 Emotional Distress: How confident are you that you can keep the emotional distress caused by your disease from interfering with the things you want to do? Select Number: 9 Other Symptoms or Health Problems: How confident are you that you can keep other symptoms or health problems from interfering with the things you want to do? Select Number: 9 Different Tasks and Activities: How confident are you that you can do the different tasks and activities needed to manage your health condition so as to reduce your need to see a doctor? Select Number: 10 Medication: How confident are you that you can do things other than just taking medication to reduce how much your illness affects your everyday life? Select Number: 9 Total Score:: 9
[2017-09-25 11:39] VITALS: BP 118/78; BP 80/62
== END 2017-09-26 23:59 ==
LOC: CR 11:30
PROVIDERS: Family Provider Internal Medicine; PCP Internal Medicine; Visit Provider Internal Medicine Cardiovascular Disease
DX: I25.10 Atherosclerotic heart disease of native coronary artery without angina pectoris (principal); I10 Essential (primary) hypertension; E11.9 Type 2 diabetes mellitus without complications; E78.5 Hyperlipidemia, unspecified; Z95.5 Presence of coronary angioplasty implant and graft
CPT/HCPCS: 93798

== ENCOUNTER → 2017-10-01 12:01 | Outpatient (CLI) | payer MEDICAID, SELFPAY ==
[2017-01-25 12:53] VITALS: BMI 38.2
[2017-10-01 12:39] LABS: Absolute Lymphocyte Count 2.45 X10^3/ul (0.83-4.51); Absolute Neutrophil Count 7.7 X10^3/uL (2.0-7.7); Basophil# 0.02 X10^3/uL; Basophil% 0.2 % (0-1); Eosinophil# 0.05 X10^3/uL; Eosinophils% 0.4 % (0-5); Hematocrit 40.8 % (40-54); Hemoglobin 13.1 g/dl (13.0-16.5); Lymphocyte # 2.45 X10^3/ul (4.0); Lymphocyte % 21.9 % (19-41); Mean Corp Hgb Conc 32.1 g/gl (32-36); Mean Corpuscular Hgb 29.7 pg (27.0-32.0); Mean Corpuscular Volume 92.5 fL (80-94); Mean Platelet Vol. 10.9 fl (6.2-12.0); Monocyte# 0.93 X10^3/uL; Monocyte% 8.3 % (0-10); Neutrophil # 7.72 X10^3/uL (2.7-7.7); Neutrophil % 68.9 % (47-70); Platelet Count 248 K/mm3 (150-450); RBC Distribution Width CV 13.9 % (11.6-14.6); RBC Distribution Width SD 47.2 fl (35.1-43.9); Red Blood Count 4.41 M/mm3 (4.6-6.2); White Blood Count 11.2 K/mm3 (4.4-11.0)
[2017-10-01 12:42] LABS: POSITIVE COUNT NO; POSITIVE DIFFERENTIAL NO; POSITIVE MORPHOLOGY NO
[2017-10-01 12:59] LABS: Anion Gap 7 (5-15); BUN 17 mg/dL (7-18); BUN/Creat Ratio 15.2 RATIO (10-20); Calcium,Total 8.6 mg/dL (8.5-10.1); Chloride 109 mmol/L (98-107); Creatinine, Serum 1.12 mg/dL (0.70-1.30); EST Glomerular Filtration Rate 77 mL/min (>60); Est Glom Filt Rate - Afr Amer 93 mL/min (>60); Glucose 102 mg/dL (74-106); Potassium 3.9 mmol/L (3.5-5.1); Sodium Level 140 mmol/L (136-145)
== END ==
PROVIDERS: Family Provider Internal Medicine; PCP Internal Medicine; Visit Provider Internal Medicine Cardiovascular Disease
DX: E78.5 Hyperlipidemia, unspecified (principal); E11.9 Type 2 diabetes mellitus without complications; I10 Essential (primary) hypertension; I25.10 Atherosclerotic heart disease of native coronary artery without angina pectoris; R06.02 Shortness of breath; Z95.5 Presence of coronary angioplasty implant and graft; I95.9 Hypotension, unspecified; G47.33 Obstructive sleep apnea (adult) (pediatric)
CPT/HCPCS: 36415; 80048; 85025

== ENCOUNTER 2017-10-26 11:30 | Outpatient (RCR) | payer MEDICAID, SELFPAY ==
[2017-01-25 12:53] VITALS: BMI 38.2
[2017-09-27 01:09] VITALS: BP 118/78; BP 80/62
--- NOTE | 2017-10-22 15:47 | PCM.CR.ITP ---
Exercise - Initial Assessment - Stages of Change Stages of Change:: Action - Exercise Prescription Mode:: Treadmill, Rower, Airdyne, NuStep, Arm Ergometer Angina with exercise?: No Target Heart Rate:: 126-135 - Hypertension Do any of the following apply?: Yes - Intervention Home Exercise/Activity Goal:: Moderate Exercise 30 min/day x 5 days/wk - Education Goals:: Warm-up, RPE DI Scale, S/S, Safe Exercise, Self-Monitoring - Exercise Program Goals Exercise Program Goals: Aerobic Activity >30 min, B/P <140/90 Exercise - 30-day Assessment - Visit Date of Eval: 09/25/17 - Stages of Change Stages of Change:: Action - Exercise Prescription Mode:: Treadmill, Rower, Airdyne, NuStep Frequency (x/week): 3 Duration:: 35 METs - Progression: 0.5-1 MET as tolerated: 4 Target Heart Rate:: 126-135 w/ max HR 104 - Intervention Home Exercise/Activity Goal:: Moderate Exercise 30 min/day x 5 days/wk - Education Goals:: Warm-up, RPE DI Scale, S/S, Safe Exercise, Self-Monitoring - Exercise Program Goals Exercise Program Goals: Aerobic Activity >30 min Exercise - 60-Day Assessment - Visit Date of Eval: 10/22/17 - 09/14/2017-10/19/2017 Session #:: 13 - Stages of Change Stages of Change:: Action - Exercise Prescription Mode:: Treadmill, Airdyne, NuStep Frequency (x/week): 3 Duration:: 30 METs: 5 Target Heart Rate:: 126-135 Max HR 138 - Hypertension Resting Blood Pressure:: 98/52 Peak Exercise Blood Pressure:: 144/80 Medication Changes:: Yes - 3/2 stopped Metoprolol and isosorbide - Intervention Home Exercise/Activity Goal:: Sitting Time <3 hrs/day - Education Goals:: Warm-up, RPE DI Scale, S/S, Safe Exercise, Self-Monitoring - Exercise Program Goals Exercise Program Goals: Aerobic Activity >30 min, B/P <140/90 Exercise - 90-Day Assessment - Stages of Change Stages of Change:: Action - Exercise Prescription Mode:: Treadmill, Airdyne, NuStep Frequency (x/week): 3 - Intervention Home Exercise/Activity Goal:: Sitting Time <3 hrs/day - Education Goals:: Warm-up, RPE DI Scale, S/S, Safe Exercise, Self-Monitoring - Exercise Program Goals Exercise Program Goals: Aerobic Activity >30 min, B/P <140/90 Exercise - Final/Discharge - Hypertension Do any of the following apply?: Yes Nutrition - Initial Assessment - Program Goals Nutrition Program Goals: LDL <70. Total Cholesterol <200. HDL >45. Triglycerides <150. HgbA1C <7%. BMI <25 - Stages of Change Stages of Change:: Action - Diabetes Diabetes:: Yes Hgb A1C: 6.7 Non-Insulin Dependent?: No Do you monitor your blood sugar at home?: Yes - Weight Management Body Fat %:: 39.8 - Intervention Referral to dietitian:: No Referral to Diabetic Clinic:: No Will attend diet classes:: Yes - Education Gave educational materials for:: Signs & symptoms of hypoglycemia, Signs & symptoms of hyperglycemia, Relate diabetes to coronary artery disease, Healthy eating Nutrition - 30-Day Assessment - Program Goals Nutrition Program Goals: LDL <70. Total Cholesterol <200. HDL >45. Triglycerides <150. HgbA1C <7%. BMI <25 - Stages of Change Stages of Change:: Action - Lipids Has the patient seen the dietitian?: No - Diabetes Diabetes:: Yes Hgb A1C: 6.7 Non-Insulin Dependent?: No - Intervention Referral to dietitian:: No Referral to Diabetic Clinic:: No Will attend diet classes:: Yes - Education Attended class for:: Signs & symptoms of hypoglycemia, Signs & symptoms of hyperglycemia, Relate diabetes to coronary artery disease, Healthy eating Nutrition - 60-Day Assessment - Program Goals Nutrition Program Goals: LDL <70. Total Cholesterol <200. HDL >45. Triglycerides <150. HgbA1C <7%. BMI <25 - Visit Date of Eval: 10/22/17 - 09/14/2017-10/19/2017 - Stages of Change Stages of Change:: Action - Lipids Has the patient seen the dietitian?: No - Diabetes Diabetes:: Yes Hgb A1C: 6.7 Non-Insulin Dependent?: No - Weight Management Weight:: 103.419 kg - Intervention Referral to dietitian:: No Referral to Diabetic Clinic:: No Will attend diet classes:: Yes - Education Attended class for:: Signs & symptoms of hypoglycemia, Signs & symptoms of hyperglycemia, Relate diabetes to coronary artery disease, Healthy eating Nutrition - 90-Day Assessment - Program Goals Nutrition Program Goals: LDL <70. Total Cholesterol <200. HDL >45. Triglycerides <150. HgbA1C <7%. BMI <25 - Stages of Change Stages of Change:: Action - Lipids Has the patient seen the dietitian?: No - Diabetes Diabetes:: Yes Hgb A1C: 6.7 Non-Insulin Dependent?: No - Intervention Referral to dietitian:: No Referral to Diabetic Clinic:: No Will attend diet classes:: Yes - Education Attended class for:: Signs & symptoms of hypoglycemia, Signs & symptoms of hyperglycemia, Relate diabetes to coronary artery disease, Healthy eating Nutrition - Final Assessment - Program Goals Nutrition Program Goals: LDL <70. Total Cholesterol <200. HDL >45. Triglycerides <150. HgbA1C <7%. BMI <25 - Diabetes Diabetes:: Yes Hgb A1C: 6.7 Non-Insulin Dependent?: No - Weight Management Body Fat %:: 39.8 - Intervention Referral to dietitian:: No Referral to Diabetic Clinic:: No Will attend diet classes:: Yes Tobacco - Initial Assessment - Program Goals Tobacco Program Goals: Complete smoking cessation. Attend education classes. Improve Knowledge Test score - Stage of Change Stages of Change:: Action - Learning Barriers Learning Barriers: Cognitive - Family Support Do you have family support?: Yes - Tobacco Use Tobacco Use: Cigarettes How long ago did you quit using tobacco products?: Less than 6 months ago How many cigarettes do you smoke per day?: 0 - last cigarette 09/07/2017 Years Smokin Do you use smokeless tobacco?: No - Intervention Smoking Cessation Referral:: No Individual Education/Counseling:: No Education Schedule Given:: Yes - Education Gave educational material for:: Tobacco triggers, Coronary artery disease, Risk factors, Sexuality, Medical compliance, Cardiac A&P, Angina signs & symptoms Tobacco - 30-Day Assessment - Program Goals Tobacco Program Goals: Complete smoking cessation. Attend education classes. Improve Knowledge Test score - Stage of Change Stages of Change:: Action - Learning Barriers Learning Barriers: Participates in education - Family Support Do you have family support?: Yes - Tobacco Use Tobacco Use: Non-smoker How many cigarettes do you smoke per day?: 0 - last cigarette 09/07/2017 Do you use smokeless tobacco?: No - Intervention Smoking Cessation Referral:: No Individual Education/Counseling:: No Education Schedule Given:: Yes - Education Attended class for:: Tobacco triggers, Coronary artery disease, Risk factors, Sexuality, Medical compliance, Cardiac A&P, Angina signs & symptoms Tobacco - 60-Day Assessment - Program Goals Tobacco Program Goals: Complete smoking cessation. Attend education classes. Improve Knowledge Test score - Stage of Change Stages of Change:: Action - Family Support Do you have family support?: Yes - Tobacco Use Tobacco Use: Non-smoker How many cigarettes do you smoke per day?: 0 - last cigarette 09/07/2017 Do you use smokeless tobacco?: No - Intervention Smoking Cessation Referral:: No Individual Education/Counseling:: No Education Schedule Given:: Yes - Education Attended class for:: Tobacco triggers, Coronary artery disease, Risk factors, Sexuality, Medical compliance, Cardiac A&P, Angina signs & symptoms Tobacco - 90-Day Assessment - Program Goals Tobacco Program Goals: Complete smoking cessation. Attend education classes. Improve Knowledge Test score - Stage of Change Stages of Change:: Action - Family Support Do you have family support?: Yes - Tobacco Use Tobacco Use: Non-smoker How many cigarettes do you smoke per day?: 0 - last cigarette 09/07/2017 Do you use smokeless tobacco?: No - Intervention Smoking Cessation Referral:: No Individual Education/Counseling:: No Education Schedule Given:: Yes - Education Attended class for:: Tobacco triggers, Coronary artery disease, Risk factors, Sexuality, Medical compliance, Cardiac A&P, Angina signs & symptoms Tobacco - Final Assessment - Program Goals Tobacco Program Goals: Complete smoking cessation. Attend education classes. Improve Knowledge Test score - Family Support Do you have family support?: Yes - Tobacco Use Tobacco Use: Non-smoker How many cigarettes do you smoke per day?: 0 - last cigarette 09/07/2017 Do you use smokeless tobacco?: No - Intervention Smoking Cessation Referral:: No Individual Education/Counseling:: No Education Schedule Given:: Yes Psychosocial - Initial Assess - Target Goals Target Goals: Assess presence or absence of depression. Using a valid screening tool, maximizes coping skills. Positive support system - Stages of Change Stages of Change:: Action - Psychosocial Test Tool Used:: HANDS Depression Questionnaire Self-Efficacy Score:: 9 - Education Gave educational materials for:: Coping techniques, Signs & symptoms of depression, Stress management, Relaxation techniques - Patient/Program Goal Preventative Medication(s):: Aspirin, NATHEN inhibitor, Clopidogrel, Beta marely, Statin/lipid - Assistive Devices Assistive Devices:: None Fall Risk Assessed:: Yes Psychosocial - 30-Day Assess - Target Goals Target Goals: Assess presence or absence of depression. Using a valid screening tool, maximizes coping skills. Positive support system - Stages of Change Stages of Change:: Action - Psychosocial Test Tool Used:: HANDS Depression Questionnaire Self-Efficacy Score:: 9 - Patient/Program Goal Preventative Medication(s):: Aspirin, NATHEN inhibitor, Clopidogrel, Beta marely, Statin/lipid - Assistive Devices Assistive Devices:: None Fall Risk Assessed:: Yes Psychosocial - 60-Day Assess - Target Goals Target Goals: Assess presence or absence of depression. Using a valid screening tool, maximizes coping skills. Positive support system - Stages of Change Stages of Change:: Action - Psychosocial Test Tool Used:: HANDS Depression Questionnaire Self-Efficacy Score:: 9 - Intervention PS - Interventions: Yes Attend Stress Management Classes, Yes Uses Stress Management Skills, No Referral to Mental Health, No Referral to [facility] Case Management, No Referral to Physician - Education Attended classes for:: Coping techniques, Signs & symptoms of depression, Stress management, Relaxation techniques - Patient/Program Goal Preventative Medication(s):: Aspirin, NATHEN inhibitor, Clopidogrel, Beta marely, Statin/lipid - Assistive Devices Assistive Devices:: None Fall Risk Assessed:: Yes Psychosocial - 90-Day Assess - Target Goals Target Goals: Assess presence or absence of depression. Using a valid screening tool, maximizes coping skills. Positive support system - Stages of Change Stages of Change:: Action - Psychosocial Test Tool Used:: HANDS Depression Questionnaire Self-Efficacy Score:: 9 - Education Attended classes for:: Coping techniques, Signs & symptoms of depression, Stress management, Relaxation techniques - Patient/Program Goal Preventative Medication(s):: Aspirin, NATHEN inhibitor, Clopidogrel, Beta marely, Statin/lipid - Assistive Devices Assistive Devices:: None Fall Risk Assessed:: Yes Psychosocial - Final Assessmen - Target Goals Target Goals: Assess presence or absence of depression. Using a valid screening tool, maximizes coping skills. Positive support system - Psychosocial Test Tool Used:: HANDS Depression Questionnaire Self-Efficacy Score:: 9 - Patient/Program Goal Preventative Medication(s):: Aspirin, NATHEN inhibitor, Clopidogrel, Beta marely, Statin/lipid - Assistive Devices Assistive Devices:: None Fall Risk Assessed:: Yes Patient Health Questionnaire 60-Day Re-eval Assessment 1. Little interest or pleasure in doing things: Not at all 2. Feeling down, depressed, or hopeless: Not at all 3. Trouble falling or staying asleep, or sleeping too much: Not at all 4. Feeling tired or having little energy: Several days 5. Poor appetite or overeating: Not at all 6. Feeling bad about yourself -- or that you are a failure or have let yourself or your family down: Not at all 7. Trouble concentrating on things, such as reading the newspaper or watching television: Not at all 8. Moving or speaking so slowly that other people could have noticed. Or the opposite - being so fidgety or restless that you have been moving around a lot more than usual: Not at all 9. Thoughts that you would be better off , or of hurting yourself in some way: Not at all How difficult have these problems made it for you to do your work, take care of things at home, or get along with other people?: Not difficult at all Total Score: 1 Self-Efficacy 60-Day Re-eval Assessment We would like to know how confident you are in doing certain activities. Please select your confidence level for:: Select your confidence level for the following using the scale 1-10 where 1 is not at all confident and 10 is totally confident. Your score is the average of all 6 responses. Fatigue: How confident are you that you can keep the fatigue caused by your disease from interfering with the things you want to do? Select Number: 10 Physical Discomfort or Pain: How confident are you that you can keep the physical discomfort or pain of your disease from interfering with the things you want to do? Select Number: 10 Emotional Distress: How confident are you that you can keep the emotional distress caused by your disease from interfering with the things you want to do? Select Number: 10 Other Symptoms or Health Problems: How confident are you that you can keep other symptoms or health problems from interfering with the things you want to do? Select Number: 10 Different Tasks and Activities: How confident are you that you can do the different tasks and activities needed to manage your health condition so as to reduce your need to see a doctor? Select Number: 10 Medication: How confident are you that you can do things other than just taking medication to reduce how much your illness affects your everyday life? Select Number: 10 Total Score:: 10 Cardiac Rehabilitation Goals - Cardiac Rehab Goals Cardiac Rehabilitation Goals: 1. Maintain the individual as the primary focus of care. 2. To improve the patient's quality of life. 3. Identification of cardiac risk factors and provide cardiac risk factor management. 4. Enhance the psychosocial status of the patient. 5. Reconditioning enough to allow the patient to resume customary activities. 6. Control symptoms of cardiac disease - Scale Scale for measuring improvement of personal goals: Enter appropriate number in Comments. 2 = Unchanged. 3 = Slightly Better. 4 = Moderate Improvement. 5 = Met my Goal 60-Day Re-eval Assessment Personal Goals: Discharge Reassessment: Participate in home exercise program, Improve muscle strength and endurance
[2017-10-22 15:50] VITALS: BP 144/80; BP 98/52
== END 2017-10-27 23:59 ==
LOC: CR 11:30
PROVIDERS: Family Provider Internal Medicine; PCP Internal Medicine; Visit Provider Internal Medicine Cardiovascular Disease
DX: E78.5 Hyperlipidemia, unspecified (principal); E11.9 Type 2 diabetes mellitus without complications; I10 Essential (primary) hypertension; I25.10 Atherosclerotic heart disease of native coronary artery without angina pectoris; R06.02 Shortness of breath; Z95.5 Presence of coronary angioplasty implant and graft; I95.9 Hypotension, unspecified; G47.33 Obstructive sleep apnea (adult) (pediatric)
CPT/HCPCS: 36415; 80048; 85025; 93798

== ENCOUNTER 2017-11-23 11:30 | Outpatient (RCR) | payer MEDICAID, SELFPAY ==
[2017-01-25 12:53] VITALS: BMI 38.2
[2017-10-28 00:57] VITALS: BP 144/80; BP 98/52
--- NOTE | 2017-11-19 13:49 | PCM.CR.ITP ---
General Information - General Information Admitting Diagnosis: [place], PCI w/ status post coronary stenting, RENETTA and hyperlipidemia. - Education/Goals Individual Counseling: Initial Assessment: Nicotine/Smoking - maintain complete smoking cessation, Abnormal Cholesterol Levels, High Blood Pressure, Overweight/Obesity - lose weight through strucutured weight loss program., Hypertension, 30-Day Assessment: Nicotine/Smoking, Abnormal Cholesterol Levels, High Blood Pressure, Overweight/Obesity, Hypertension, 60-Day Assessment: Nicotine/Smoking, Abnormal Cholesterol Levels, High Blood Pressure, Overweight/Obesity, Hypertension Cardiac Rehabilitation Goals: 1. Maintain the individual as the primary focus of care. 2. To improve the patient's quality of life. 3. Identification of cardiac risk factors and provide cardiac risk factor management. 4. Enhance the psychosocial status of the patient. 5. Reconditioning enough to allow the patient to resume customary activities. 6. Control symptoms of cardiac disease Scale for measuring improvement of personal goals: Enter appropriate number in Comments. 2 = Unchanged. 3 = Slightly Better. 4 = Moderate Improvement. 5 = Met my Goal Personal Goals: Initial Assessment: Improve management of stress and emotions, Improve energy level, Participate in home exercise program, Get back to work, or to resume activities faster, Improve diet and eating habits (eat healthier), Control risk factors (learn risk factor modification), 30-day Re-assessment: Improve management of stress and emotions, Improve energy level, Participate in home exercise program, Get back to work, or to resume activities faster, Improve diet and eating habits (eat healthier), Control risk factors (learn risk factor modification), 60-day Re-assessment: Improve management of stress and emotions, Improve energy level, Participate in home exercise program, Get back to work, or to resume activities faster, Improve diet and eating habits (eat healthier), Control risk factors (learn risk factor modification) Exercise - 90-Day Assessment - Visit Date of Eval: 11/19/17 Session #:: 24 - Stages of Change Stages of Change:: Action - Exercise Prescription Mode:: Treadmill, Rower, Airdyne, NuStep Frequency (x/week): 3 - has called off a few times due to work schedule conflicts only. Duration:: 35 METs: 5.5 Target Heart Rate:: 126-135 - Hypertension Resting Blood Pressure:: 90/60 Peak Exercise Blood Pressure:: 120/80 Medication Changes:: Yes - metoprolol and isosorbide. - Intervention Home Exercise/Activity Goal:: Moderate Exercise 30 min/day x 5 days/wk - Education Goals:: Warm-up, RPE DI Scale, S/S, Safe Exercise, Self-Monitoring - Exercise Program Goals Exercise Program Goals: Aerobic Activity >30 min Nutrition - Initial Assessment - Program Goals Nutrition Program Goals: LDL <70. Total Cholesterol <200. HDL >45. Triglycerides <150. HgbA1C <7%. BMI <25 - Diabetes Do you monitor your blood sugar at home?: Yes Nutrition - 90-Day Assessment - Program Goals Nutrition Program Goals: LDL <70. Total Cholesterol <200. HDL >45. Triglycerides <150. HgbA1C <7%. BMI <25 - Visit Date of Eval: 11/19/17 - Stages of Change Stages of Change:: Action - Lipids Has the patient seen the dietitian?: No - Diabetes Diabetes:: No Insulin: No Non-Insulin Dependent?: No - Weight Management Weight:: 227 lb - Intervention Referral to dietitian:: No Referral to Diabetic Clinic:: No Will attend diet classes:: Yes - Education Attended class for:: Healthy eating Tobacco - Initial Assessment - Program Goals Tobacco Program Goals: Complete smoking cessation. Attend education classes. Improve Knowledge Test score - Learning Barriers Learning Barriers: Cognitive Tobacco - 90-Day Assessment - Program Goals Tobacco Program Goals: Complete smoking cessation. Attend education classes. Improve Knowledge Test score - Stage of Change Stages of Change:: Action - Learning Barriers Learning Barriers: Participates in education - Family Support Do you have family support?: Yes - Tobacco Use Tobacco Use: Cigarettes Date quit:: 05/28/17 - maintain smoking cesssation Do you use smokeless tobacco?: No - Intervention Smoking Cessation Referral:: Yes Individual Education/Counseling:: No Education Schedule Given:: Yes - Education Attended class for:: Tobacco triggers, Coronary artery disease, Risk factors, Sexuality, Medical compliance, Cardiac A&P, Angina signs & symptoms Psychosocial - Initial Assess - Target Goals Target Goals: Assess presence or absence of depression. Using a valid screening tool, maximizes coping skills. Positive support system - Psychosocial Test Tool Used:: HANDS Depression Questionnaire - Assistive Devices Fall Risk Assessed:: Yes Psychosocial - 90-Day Assess - Target Goals Target Goals: Assess presence or absence of depression. Using a valid screening tool, maximizes coping skills. Positive support system - Stages of Change Stages of Change:: Action - Psychosocial Test Tool Used:: HANDS Depression Questionnaire Self-reported stress:: no Test Scores: SF - 36 survey completed, Mood Scale Test - Intervention PS - Interventions: Yes Attend Stress Management Classes, Yes Uses Stress Management Skills, No Referral to Mental Health, No Referral to [facility] Case Management, No Referral to Physician - Education Attended classes for:: Coping techniques, Signs & symptoms of depression, Stress management, Relaxation techniques - Patient/Program Goal Preventative Medication(s):: Aspirin, Clopidogrel, Statin/lipid - Assistive Devices Assistive Devices:: None Fall Risk Assessed:: Yes Patient Health Questionnaire 90-Day Re-eval Assessment 1. Little interest or pleasure in doing things: Several days 2. Feeling down, depressed, or hopeless: Not at all 3. Trouble falling or staying asleep, or sleeping too much: Several days 4. Feeling tired or having little energy: Not at all 5. Poor appetite or overeating: Not at all 6. Feeling bad about yourself -- or that you are a failure or have let yourself or your family down: Not at all 7. Trouble concentrating on things, such as reading the newspaper or watching television: Not at all 8. Moving or speaking so slowly that other people could have noticed. Or the opposite - being so fidgety or restless that you have been moving around a lot more than usual: Not at all 9. Thoughts that you would be better off , or of hurting yourself in some way: Not at all Total Score: 2 Self-Efficacy 90-Day Re-eval Assessment We would like to know how confident you are in doing certain activities. Please select your confidence level for:: Select your confidence level for the following using the scale 1-10 where 1 is not at all confident and 10 is totally confident. Your score is the average of all 6 responses. Fatigue: How confident are you that you can keep the fatigue caused by your disease from interfering with the things you want to do? Select Number: 9 Physical Discomfort or Pain: How confident are you that you can keep the physical discomfort or pain of your disease from interfering with the things you want to do? Select Number: 10 Emotional Distress: How confident are you that you can keep the emotional distress caused by your disease from interfering with the things you want to do? Select Number: 9 Other Symptoms or Health Problems: How confident are you that you can keep other symptoms or health problems from interfering with the things you want to do? Select Number: 8 Different Tasks and Activities: How confident are you that you can do the different tasks and activities needed to manage your health condition so as to reduce your need to see a doctor? Select Number: 8 Medication: How confident are you that you can do things other than just taking medication to reduce how much your illness affects your everyday life? Select Number: 10 Total Score:: 9
--- NOTE | 2017-11-19 14:12 | CR.ITP_ITS ---
General Information - General Information Admitting Diagnosis: HI, PCI w/ status post coronary stenting, RENETTA and hyperlipidemia. - Education/Goals Individual Counseling: Initial Assessment: Nicotine/Smoking - maintain complete smoking cessation, Abnormal Cholesterol Levels, High Blood Pressure, Overweight/ Obesity - lose weight through strucutured weight loss program., Hypertension, 30 -Day Assessment: Nicotine/Smoking, Abnormal Cholesterol Levels, High Blood Pressure, Overweight/Obesity, Hypertension, 60-Day Assessment: Nicotine/Smoking , Abnormal Cholesterol Levels, High Blood Pressure, Overweight/Obesity, Hypertension Cardiac Rehabilitation Goals: 1. Maintain the individual as the primary focus of care. 2. To improve the patient's quality of life. 3. Identification of cardiac risk factors and provide cardiac risk factor management. 4. Enhance the psychosocial status of the patient. 5. Reconditioning enough to allow the patient to resume customary activities. 6. Control symptoms of cardiac disease Scale for measuring improvement of personal goals: Enter appropriate number in Comments. 2 = Unchanged. 3 = Slightly Better. 4 = Moderate Improvement. 5 = Met my Goal Personal Goals: Initial Assessment: Improve management of stress and emotions, Improve energy level, Participate in home exercise program, Get back to work, or to resume activities faster, Improve diet and eating habits (eat healthier), Control risk factors (learn risk factor modification), 30-day Re-assessment: Improve management of stress and emotions, Improve energy level, Participate in home exercise program, Get back to work, or to resume activities faster, Improve diet and eating habits (eat healthier), Control risk factors (learn risk factor modification), 60-day Re-assessment: Improve management of stress and emotions, Improve energy level, Participate in home exercise program, Get back to work, or to resume activities faster, Improve diet and eating habits ( eat healthier), Control risk factors (learn risk factor modification) Exercise - 90-Day Assessment - Visit Date of Eval: 11/19/17 Session #:: 24 - Stages of Change Stages of Change:: Action - Exercise Prescription Mode:: Treadmill, Rower, Airdyne, NuStep Frequency (x/week): 3 - has called off a few times due to work schedule conflicts only. Duration:: 35 METs: 5.5 Target Heart Rate:: 126-135 - Hypertension Resting Blood Pressure:: 90/60 Peak Exercise Blood Pressure:: 120/80 Medication Changes:: Yes - metoprolol and isosorbide. - Intervention Home Exercise/Activity Goal:: Moderate Exercise 30 min/day x 5 days/wk - Education Goals:: Warm-up, RPE DI Scale, S/S, Safe Exercise, Self-Monitoring - Exercise Program Goals Exercise Program Goals: Aerobic Activity >30 min Nutrition - Initial Assessment - Program Goals Nutrition Program Goals: LDL <70. Total Cholesterol <200. HDL >45. Triglycerides <150. HgbA1C <7%. BMI <25 - Diabetes Do you monitor your blood sugar at home?: Yes Nutrition - 90-Day Assessment - Program Goals Nutrition Program Goals: LDL <70. Total Cholesterol <200. HDL >45. Triglycerides <150. HgbA1C <7%. BMI <25 - Visit Date of Eval: 11/19/17 - Stages of Change Stages of Change:: Action - Lipids Has the patient seen the dietitian?: No - Diabetes Diabetes:: No Insulin: No Non-Insulin Dependent?: No - Weight Management Weight:: 227 lb - Intervention Referral to dietitian:: No Referral to Diabetic Clinic:: No Will attend diet classes:: Yes - Education Attended class for:: Healthy eating Tobacco - Initial Assessment - Program Goals Tobacco Program Goals: Complete smoking cessation. Attend education classes. Improve Knowledge Test score - Learning Barriers Learning Barriers: Cognitive Tobacco - 90-Day Assessment - Program Goals Tobacco Program Goals: Complete smoking cessation. Attend education classes. Improve Knowledge Test score - Stage of Change Stages of Change:: Action - Learning Barriers Learning Barriers: Participates in education - Family Support Do you have family support?: Yes - Tobacco Use Tobacco Use: Cigarettes Date quit:: 05/28/17 - maintain smoking cesssation Do you use smokeless tobacco?: No - Intervention Smoking Cessation Referral:: Yes Individual Education/Counseling:: No Education Schedule Given:: Yes - Education Attended class for:: Tobacco triggers, Coronary artery disease, Risk factors, Sexuality, Medical compliance, Cardiac A&P, Angina signs & symptoms Psychosocial - Initial Assess - Target Goals Target Goals: Assess presence or absence of depression. Using a valid screening tool, maximizes coping skills. Positive support system - Psychosocial Test Tool Used:: HANDS Depression Questionnaire - Assistive Devices Fall Risk Assessed:: Yes Psychosocial - 90-Day Assess - Target Goals Target Goals: Assess presence or absence of depression. Using a valid screening tool, maximizes coping skills. Positive support system - Stages of Change Stages of Change:: Action - Psychosocial Test Tool Used:: HANDS Depression Questionnaire Self-reported stress:: no Test Scores: SF - 36 survey completed, Mood Scale Test - Intervention PS - Interventions: Yes Attend Stress Management Classes, Yes Uses Stress Management Skills, No Referral to Mental Health, No Referral to [facility] Case Management, No Referral to Physician - Education Attended classes for:: Coping techniques, Signs & symptoms of depression, Stress management, Relaxation techniques - Patient/Program Goal Preventative Medication(s):: Aspirin, Clopidogrel, Statin/lipid - Assistive Devices Assistive Devices:: None Fall Risk Assessed:: Yes Patient Health Questionnaire 90-Day Re-eval Assessment 1. Little interest or pleasure in doing things: Several days 2. Feeling down, depressed, or hopeless: Not at all 3. Trouble falling or staying asleep, or sleeping too much: Several days 4. Feeling tired or having little energy: Not at all 5. Poor appetite or overeating: Not at all 6. Feeling bad about yourself -- or that you are a failure or have let yourself or your family down: Not at all 7. Trouble concentrating on things, such as reading the newspaper or watching television: Not at all 8. Moving or speaking so slowly that other people could have noticed. Or the opposite - being so fidgety or restless that you have been moving around a lot more than usual: Not at all 9. Thoughts that you would be better off , or of hurting yourself in some way: Not at all Total Score: 2 Self-Efficacy 90-Day Re-eval Assessment We would like to know how confident you are in doing certain activities. Please select your confidence level for:: Select your confidence level for the following using the scale 1-10 where 1 is not at all confident and 10 is totally confident. Your score is the average of all 6 responses. Fatigue: How confident are you that you can keep the fatigue caused by your disease from interfering with the things you want to do? Select Number: 9 Physical Discomfort or Pain: How confident are you that you can keep the physical discomfort or pain of your disease from interfering with the things you want to do? Select Number: 10 Emotional Distress: How confident are you that you can keep the emotional distress caused by your disease from interfering with the things you want to do? Select Number: 9 Other Symptoms or Health Problems: How confident are you that you can keep other symptoms or health problems from interfering with the things you want to do? Select Number: 8 Different Tasks and Activities: How confident are you that you can do the different tasks and activities needed to manage your health condition so as to reduce your need to see a doctor? Select Number: 8 Medication: How confident are you that you can do things other than just taking medication to reduce how much your illness affects your everyday life? Select Number: 10 Total Score:: 9
[2017-11-19 14:32] VITALS: BP 120/80; BP 90/60
== END 2017-11-26 23:59 ==
LOC: CR 11:30
PROVIDERS: Family Provider Internal Medicine; PCP Internal Medicine; Visit Provider Internal Medicine Cardiovascular Disease
DX: I25.10 Atherosclerotic heart disease of native coronary artery without angina pectoris (principal); E78.5 Hyperlipidemia, unspecified; E11.9 Type 2 diabetes mellitus without complications; I10 Essential (primary) hypertension; R06.02 Shortness of breath; Z95.5 Presence of coronary angioplasty implant and graft; I95.9 Hypotension, unspecified; G47.33 Obstructive sleep apnea (adult) (pediatric)
CPT/HCPCS: 93798

== ENCOUNTER → 2017-12-17 11:20 | Outpatient (RCR) | payer MEDICAID, SELFPAY ==
[2017-01-25 12:53] VITALS: BMI 38.2
[2017-11-27 00:47] VITALS: BP 120/80; BP 90/60
--- NOTE | 2017-12-20 12:34 | CR.ITP_ITS ---
Exercise - Final/Discharge - Visit Date of Eval: 12/20/17 - Graduated 12/17/2017 Session #:: 33 - Stages of Change Stages of Change:: Action - Exercise Prescription Mode:: Treadmill, Rower, Airdyne, NuStep Frequency (x/week): 3 Duration:: 30 METs: 5.5 increased 57% over 12 weeks. Target Heart Rate:: 126-135 max HR 104 - Hypertension Do any of the following apply?: Yes Resting Blood Pressure:: 98/64 - optimal BP control Peak Exercise Blood Pressure:: 134/80 - Intervention Home Exercise/Activity Goal:: Moderate Exercise 30 min/day x 5 days/wk - Education Goal Progress: Goal Met - Exercise Program Goals Exercise Program Goals: Aerobic Activity >30 min Nutrition - Initial Assessment - Program Goals Nutrition Program Goals: LDL <70. Total Cholesterol <200. HDL >45. Triglycerides <150. HgbA1C <7%. BMI <25 - Diabetes Do you monitor your blood sugar at home?: Yes Nutrition - Final Assessment - Program Goals Nutrition Program Goals: LDL <70. Total Cholesterol <200. HDL >45. Triglycerides <150. HgbA1C <7%. BMI <25 - Visit Date of Eval: 12/20/17 - Stages of Change Stages of Change:: Action - Diabetes Diabetes:: No - Weight Management Height: 5 ft 4 in Weight:: 229 lb - stable/unchanged Body Fat %:: 39.8 - could benefit from structured weight loss program such as [facility]. - Education Education Goal Reached?: Yes Tobacco - Initial Assessment - Program Goals Tobacco Program Goals: Complete smoking cessation. Attend education classes. Improve Knowledge Test score - Learning Barriers Learning Barriers: Cognitive Tobacco - Final Assessment - Program Goals Tobacco Program Goals: Complete smoking cessation. Attend education classes. Improve Knowledge Test score - Stage of Change Stages of Change:: Action - Family Support Do you have family support?: Yes - Tobacco Use Tobacco Use: Non-smoker - former smoker - Education Education Goal Reached?: Yes Psychosocial - Initial Assess - Target Goals Target Goals: Assess presence or absence of depression. Using a valid screening tool, maximizes coping skills. Positive support system - Psychosocial Test Tool Used:: HANDS Depression Questionnaire - Assistive Devices Fall Risk Assessed:: Yes Psychosocial - Final Assessmen - Target Goals Target Goals: Assess presence or absence of depression. Using a valid screening tool, maximizes coping skills. Positive support system - Stages of Change Stages of Change:: Action - Psychosocial Test Tool Used:: HANDS Depression Questionnaire - Intervention PS - Interventions: Yes Attend Stress Management Classes, Yes Uses Stress Management Skills, No Referral to Mental Health, No Referral to [facility] Case Management, No Referral to Physician - Education Education Goal Reached?: Yes - Patient/Program Goal Preventative Medication(s):: Aspirin, Clopidogrel, Statin/lipid - Assistive Devices Assistive Devices:: None Fall Risk Assessed:: Yes Patient Health Questionnaire Discharge Assessment 1. Little interest or pleasure in doing things: Not at all 2. Feeling down, depressed, or hopeless: Not at all 3. Trouble falling or staying asleep, or sleeping too much: Not at all 4. Feeling tired or having little energy: Not at all 5. Poor appetite or overeating: Not at all 6. Feeling bad about yourself -- or that you are a failure or have let yourself or your family down: Not at all 7. Trouble concentrating on things, such as reading the newspaper or watching television: Not at all 8. Moving or speaking so slowly that other people could have noticed. Or the opposite - being so fidgety or restless that you have been moving around a lot more than usual: Not at all 9. Thoughts that you would be better off , or of hurting yourself in some way: Not at all How difficult have these problems made it for you to do your work, take care of things at home, or get along with other people?: Not difficult at all Total Score: 0 VICENTE-Q SV Test - Statements CAD is a disease of the arteries in the heart: False Examples of risk factors for heart disease: True Angina is chest pain or discomfort: True The benefits of resistance training include: True Eating more meat and dairy products: False Anti-platelet medications such as aspirin are important: True The only effective way to manage stress: False An exercise warm-up slowly increases heart rate: True Prepared, processed foods usually have high sodium: True Depression is common after a heart attack: True The statin medications lower cholesterol: True To control blood pressure, lower the amount of sodium: True If someone gets chest discomfort during walking: False Transfats are partially hydrogenated vegetable oils: True Sleep apnea that is not treated increases the risk: False To control cholesterol, one should become a vegetarian: False Someone knows if he/she is exercising at the right level: True Diabetes cannot be prevented with exercise & health eating: False Stress is a large risk for heart attack: True A diet that can help lower blood pressure is rich in: True - Total Score Total Correct Responses: 20 Self-Efficacy Discharge Assessment We would like to know how confident you are in doing certain activities. Please select your confidence level for:: Select your confidence level for the following using the scale 1-10 where 1 is not at all confident and 10 is totally confident. Your score is the average of all 6 responses. Fatigue: How confident are you that you can keep the fatigue caused by your disease from interfering with the things you want to do? Select Number: 10 Physical Discomfort or Pain: How confident are you that you can keep the physical discomfort or pain of your disease from interfering with the things you want to do? Select Number: 10 Emotional Distress: How confident are you that you can keep the emotional distress caused by your disease from interfering with the things you want to do? Select Number: 10 Other Symptoms or Health Problems: How confident are you that you can keep other symptoms or health problems from interfering with the things you want to do? Select Number: 10 Different Tasks and Activities: How confident are you that you can do the different tasks and activities needed to manage your health condition so as to reduce your need to see a doctor? Select Number: 10 Medication: How confident are you that you can do things other than just taking medication to reduce how much your illness affects your everyday life? Select Number: 10 Total Score:: 10 Nutrition Survey - Nutrition Survey Instructions Scoring Instructions: Scoring is as follows: Yes = 1 points. No = 0 point. Patient score that is >/=12 is considered to be at potential nutritional risk and could benefit from a referral to a registered dietitian. - Nutrition Survey Discharge Have you lost >10 lbs over the past 2 months without trying?: No Are you following a special diet at home for diabetes, low fat, or low salt?: No Are you interested in meeting with a dietitian for help understanding your diet? : No Do you eat less than 3 meals a day?: No Do you eat fatty meats (blanton, sausage, ribs, etc), fried foods, desserts, large amounts of salad dressings, margarine, butter, or cheese most days?: Yes Do you have food allergies? [Enter types in comment field]: No Do you eat in restaurants more than 3 times a week?: Yes Do you season food with salt, seasoning salt, or garlic salt?: No Do you used canned, boxed, frozen meals, or soups, seasoning packets?: Yes Total Score:: 3
[2017-12-20 13:14] VITALS: BP 134/80; BP 98/64
== END | disposition home or self-care (01) ==
LOC: CR 11-28 06:17
PROVIDERS: Family Provider Internal Medicine; PCP Internal Medicine; Visit Provider Internal Medicine Cardiovascular Disease
DX: I25.10 Atherosclerotic heart disease of native coronary artery without angina pectoris (principal); E78.5 Hyperlipidemia, unspecified; E11.9 Type 2 diabetes mellitus without complications; I10 Essential (primary) hypertension; Z95.5 Presence of coronary angioplasty implant and graft; R06.02 Shortness of breath; I95.9 Hypotension, unspecified; G47.33 Obstructive sleep apnea (adult) (pediatric)
CPT/HCPCS: 93798

== ENCOUNTER 2018-08-19 03:38 | Observation (INO) | payer MEDICAID, SELFPAY ==
[2017-01-25 12:53] VITALS: BMI 38.2
[2018-08-12 13:25] VITALS: BMI 38.2
[2018-08-19] VITALS (13 sets, daily range): BP systolic 105–128; BP diastolic 58–72; PULSE 54–69; RESP 17–18; TEMP 36.1–36.6; O2SAT 93–98; BMI 37.4
--- NOTE | 2018-08-19 05:28 | PCM.HP.STD ---
Problem List (1) Obesity (BMI 30-39.9) Status: Chronic (2) Anxiety and depression Status: Chronic (3) Schizophrenia Status: Chronic Qualifiers: Schizophrenia type: unspecified Qualified Code(s): F20.9 - Schizophrenia, unspecified (4) Tobacco abuse Status: Chronic (5) RENETTA (obstructive sleep apnea) Status: Resolved (6) Atherosclerosis of [place] coronary artery of [place] heart without angina pectoris Status: Chronic Comment: PTCA/YOHANA to OM#1, mid RCA FFR (no PCI) 01/25/2017; PCI/YOHANA to RCA 08/20/2017; (7) HTN (hypertension) Status: Chronic Qualifiers: Hypertension type: essential hypertension (8) DM2 (diabetes mellitus, type 2) Status: Chronic Qualifiers: Diabetes mellitus shelter insulin use: with shelter use Diabetes mellitus complication status: with unspecified complications Qualified Code(s): E11.8 - Type 2 diabetes mellitus with unspecified complications; Z79.4 - care home (current) use of insulin (9) Hyperlipidemia Status: Chronic Qualifiers: Hyperlipidemia type: pure hypercholesterolemia Qualified Code(s): E78.00 - Pure hypercholesterolemia, unspecified; E78.0 - Pure hypercholesterolemia History of Present Illness Date of Admission: 08/19/18 Chief Complaint: Chest pain The patient is a 42 M w/ PMHx: HTN, HLD, Diabetes mellitus type II, RENETTA on CPAP q HS, Former Tobacco use, GERD, CAD s/p PCI w/ OM 12/2016 and PTCA YOHANA prox RCA on 07/2017 with chronic chest pain history, seen ~ 6 months prior at [place] [facility] for chest pain w/ stress testing evaluation unremarkable at that time w/ recent 08/12/18 Cardiology follow-up with decision for repeat cardiac catheterization noted to have been planned for 08/12/[address] Liu; however, patient had onset of chest discomfort and presented to the OSH [place] ED w/ noted episode of ongoing chest pain while at work x 6 hours, constant, pressure and squeezing in nature with radiation to the LUE with associated diaphoresis and mild dyspnea, rated 7/10 upon presentation in the OSH ED. OSH ED evaluation and work-up included VS: T 37, HR 54, BP 117/80, RR 18, 97% on RA, CBC: WBC 10.9, Hgb 14.6, Plts 240 without shift, BMP: Na 140, K 3.8, CHl 106, Bicarb 26, BUN/Cr 15/0.8, glucose 97, BNP: 45, Trop: 0.01 and repeat delta 0.01, EKG: Sinus bradycardia with no acute evidence of ischemia, CXR: Unremarkable. In the OSH ED patient administered NG paste 1 inch, ASA with improvement. OSH ED physician discussed case with Dr. Powers prior to patient transfer. Upon transition to [facility] patient continues to note he is chest pain-free. Past Medical History Past Medical History (Chronic Problems): Chronic Problems (Last Reviewed 08/12/18 @ 13:25 by Annemarie Vázquez) Obesity (BMI 30-39.9) (Chronic) Anxiety and depression (Chronic) Schizophrenia (Chronic) Tobacco abuse (Chronic) Presence of stent in coronary artery (Chronic 08/20/17) PTCA/YOHANA to OM#1, mid RCA FFR (no PCI) 01/25/2017; PCI/YOHANA to RCA 08/20/2017; Atherosclerosis of [place] coronary artery of [place] heart without angina pectoris (Chronic) PTCA/YOHANA to OM#1, mid RCA FFR (no PCI) 01/25/2017; PCI/YOHANA to RCA 08/20/2017; HTN (hypertension) (Chronic) DM2 (diabetes mellitus, type 2) (Chronic) Hyperlipidemia (Chronic) Medical History: Medical History (Last Reviewed 08/12/18 @ 13:25 by Annemarie Vázquez) Hypotension (Acute) I95.9 RENETTA (obstructive sleep apnea) (Chronic) G47.33 Chest pain (Acute) R07.9 Fatigue (Acute) R53.83 SOB (shortness of breath) (Acute) R06.02 Dyspnea (Acute) R06.00 Atherosclerosis of [place] coronary artery of [place] heart without angina pectoris (Chronic) I25.10 PTCA/YOHANA to OM#1, mid RCA FFR (no PCI) 01/25/2017; PCI/YOHANA to RCA 08/20/2017; ACS (acute coronary syndrome) (Acute) I24.9 HTN (hypertension) (Chronic) I10 DM2 (diabetes mellitus, type 2) (Chronic) E11.9 Hyperlipidemia (Chronic) E78.5 Depression F32.9 RENETTA (obstructive sleep apnea) G47.33 Schizophrenia F20.9 Hypertension I10 Depression (Inactive) F32.9 Schizophrenia (Inactive) F20.9 Allergies Penicillins Allergy (Verified 08/06/18 18:47) Unknown olanzapine [From Zyprexa] Adverse Reaction (Severe, Verified 08/06/18 18:47) aggresion/sleepiness Home Medications: Ambulatory Orders Medication Instructions Recorded Aspirin [Aspirin, Baby] 81 mg PO DAILY@0800 /11/12 Brexpiprazole [Rexulti] 3 mg PO DAILY 01/24/17 Metoprolol Tartrate [Lopressor 12.5 mg PO BID #30 tab 01/26/17 (beta marely)] insulin glargine (U- 100) 100 30 units SC QHS 08/14/17 unit/mL subcutaneous solution fenofibrate 54 mg tablet 54 mg PO QDAY 08/15/17 pantoprazole 40 mg tablet,delayed 40 mg PO QDAY 08/15/17 release clopidogrel 75 mg tablet 75 mg PO DAILY #90 tab 09/17/17 metformin 500 mg tablet 500 mg PO BID 09/17/17 atorvastatin 40 mg tablet PO 30 Days #30 12/20/17 nitroglycerin 0.4 mg sublingual 0.4 mg SUBLINGUAL Q5M PRN #25 tab 12/20/17 tablet isosorbide mononitrate ER 60 mg 30 mg PO BID #30 tab 02/26/18 tablet,extended release 24 hr lisinopril 5 mg tablet 5 mg PO QDAY #90 tab 04/22/18 Surgical History: Surgical History (Last Updated 08/12/18 @ 13:30 by Annemarie Vázquez) Presence of stent in coronary artery (Chronic) Onset Date: 08/20/17 Z95.5 PTCA/YOHANA to OM#1, mid RCA FFR (no PCI) 01/25/2017; PCI/YOHANA to RCA 08/20/2017; Surgical History: - - PCI x2, cholecystectomy, appendectomy. Psychiatric History: Anxiety, Depression, Schizophrenia Lives: Spouse/ Significant Other Smoking Status: Former smoker Tobacco Use: Non-smoker Alcohol: None Drugs: None - *Family History Paternal Family History: Family History (Last Reviewed 08/12/18 @ 13:25 by Annemarie Vázquez) Father Heart disease Brother CAD (coronary artery disease) History Items: Heart Disease Sibling Family History: Family History (Last Reviewed 08/12/18 @ 13:25 by Annemarie Vázquez) Father Heart disease Brother CAD (coronary artery disease) History Items: Heart Disease - Brother with history of heart disease, coronary disease. Maternal Family History: Family History (Last Reviewed 08/12/18 @ 13:25 by Annemarie Vázquez) Father Heart disease Brother CAD (coronary artery disease) History Items: - - Patient notes mother healthy with no history of heart disease, diabetes, cancer. Review of Systems Constitutional: Reports: Malaise, Weakness, Fatigue. Denies: Chills, Fever, Weight Change HEENT: Denies: Head Aches, Sinus Congestion, Sinus Drainage Cardiovascular: Reports: Chest Pain. Denies: Palpitations Respiratory: Reports: Shortness of Breath, Shortness of breath at rest, Shortness of breath upon exertion. Denies: Cough, Sputum production, Wheezing Gastrointestinal: Denies: Abdominal Pain, Nausea, Vomiting Genitourinary: Denies: Dysuria Musculoskeletal: Denies: Joint Pain, Joint Tenderness Skin: Denies: Rash, Wounds Neurological: Denies: Numbness, Tingling, Focal weakness Psychiatric: Reports: Anxiety, Depression. Denies: Homicidal Ideations, Suicidal Ideations Hematologic/ Lymphatic: Reports: Easy Bruising, Easy Bleeding VTE Information - Inpt Only VTE Present on Admission: No VTE Mechan Device Prophylaxis: SCD's VTE Pharm Prophylaxis ordered?: No Reason prophylaxis not ordered:: Medical Contraindication - We will hold chemoprophylaxis for planned cardiac catheterization. Subjective: Patient seated upright in PCU bed, no acute distress, very flat affect. Objective: Physical Examination: General: awake, alert, oriented x 3 and cooperative, seated upright in the PCU bed in no apparent distress. Skin: normal color, turgor, no icterus, cyanosis except noted abrasions to the lower extremities, healing, scabs present. HEENT: AT/NC, EOMI, PERRLA, only dry MM, no carotid bruits or JVD noted; thickened neck makes imaging difficult. Lungs: Breath sounds bilaterally, greater bilateral bases, mild effort, no rales, ronchi or wheezing. Heart: Regular rate and rhythm; no gallop, rub audible. Abdomen: soft, obese, NTTP, ND, normal BS, no HSM. Extremities: no cyanosis, clubbing, or edema, skin. Neurological: patient awake, alert, oriented x 3; cognitive function intact; pupils equally reactive to light and accomodation; cranial nerves II-XII grossly normal, moving all 4 extremities, no focal deficits, strength moderately globally decreased. Psychiatric: affect appears extremely flat, no acute evidence of depressive or anxiety feelings. - Physical Exam Vital Signs Temp Pulse Resp BP Pulse Ox 97.8 F 61 18 128/72 H 97 08/19/18 05:12 08/19/18 05:12 08/19/18 05:12 08/19/18 05:12 08/19/18 05:12 Oxygen Delivery Method Room Air Weight: 218 lb 0.595 oz Body Mass Index (BMI) 37.4 Assessment/Plan All Active Problems (Last Reviewed 08/12/18 @ 13:25 by Annemarie Vázquez) Hypotension (Acute) RENETTA (obstructive sleep apnea) (Resolved) Chest pain (Acute) Fatigue (Acute) SOB (shortness of breath) (Acute) Dyspnea (Acute) ACS (acute coronary syndrome) (Acute) The patient is a 42 M w/ PMHx: HTN, HLD, Diabetes mellitus type II, RENETTA on CPAP q HS, Former Tobacco use, GERD, CAD s/p PCI w/ OM 12/2016 and PTCA YOHANA prox RCA on 07/2017 with chronic chest pain history, seen ~ 6 months prior at [place] [facility] for chest pain w/ stress testing evaluation unremarkable at that time w/ recent 08/12/18 Cardiology follow-up with decision for repeat cardiac catheterization noted to have been planned for 08/12/[address] Liu; however, patient had onset of chest discomfort and presented to the OSH [place] ED w/ noted episode of ongoing chest pain while at work x 6 hours, constant, pressure and squeezing in nature with radiation to the LUE with associated diaphoresis and mild dyspnea, rated 7/10 upon presentation in the OSH ED. (1) Chest Pain: OSH ED evaluation and work-up included VS: T 37, HR 54, BP 117/80, RR 18, 97% on RA, CBC: WBC 10.9, Hgb 14.6, Plts 240 without shift, BMP: Na 140, K 3.8, CHl 106, Bicarb 26, BUN/Cr 15/0.8, glucose 97, BNP: 45, Trop: 0.01 and repeat delta 0.01, EKG: Sinus bradycardia with no acute evidence of ischemia, CXR: Unremarkable. Will admit to PCU, place on a monitored bed to assure no acute myocardial infarction with serial cardiac enzymes and EKGs. ASA, NG, morphine. Cardiology consulted, planned cardiac catheterization, unclear if in AM secondary to holiday however to be cautious will maintain NPO status on IVFs. (2) CAD: s/p PCI w/ OM 12/2016 and PTCA YOHANA prox RCA on 07/2017, maintain on asa, plavix, metoprolol, statin therapies. (3) Diabetes mellitus type II: Hold oral home regimen, continue home insulin regimen, NPO status, accu checks w/ ISS, nutrition consultation for education and teaching. (4) Anxiety and Depression/Bipolar Disorder/Schizophrenia: Continue home rexulti regimen. (5) Hypertension: Continue home regimen including lisinopril, metoprolol, PRN hydralazine. (6) Hyperlipidemia: Continue home statin regimen. AM FLP. (7) History of Tobacco use: Encouraged continued cessation. (8) RENETTA: CPAP q HS. (9) GERD: PPI. (10) DVT Prophylaxis: SCDs, hold chemoprophylaxis given planned cardiac catheterization. Code Visit OBSV E&M: 73011 Initial observation care L3
--- NOTE | 2018-08-19 05:32 | HP.PCM_ITS ---
Problem List (1) Obesity (BMI 30-39.9) Status: Chronic (2) Anxiety and depression Status: Chronic (3) Schizophrenia Status: Chronic Qualifiers: Schizophrenia type: unspecified Qualified Code(s): F20.9 - Schizophrenia, unspecified (4) Tobacco abuse Status: Chronic (5) RENETTA (obstructive sleep apnea) Status: Resolved (6) Atherosclerosis of [place] coronary artery of [place] heart without angina pectoris Status: Chronic Comment: PTCA/YOHANA to OM#1, mid RCA FFR (no PCI) 01/25/2017; PCI/YOHANA to RCA 08/20/2017; (7) HTN (hypertension) Status: Chronic Qualifiers: Hypertension type: essential hypertension (8) DM2 (diabetes mellitus, type 2) Status: Chronic Qualifiers: Diabetes mellitus custodial insulin use: with custodial use Diabetes mellitus complication status: with unspecified complications Qualified Code(s): E11.8 - Type 2 diabetes mellitus with unspecified complications; Z79.4 - [facility] (current) use of insulin (9) Hyperlipidemia Status: Chronic Qualifiers: Hyperlipidemia type: pure hypercholesterolemia Qualified Code(s): E78.00 - Pure hypercholesterolemia, unspecified; E78.0 - Pure hypercholesterolemia History of Present Illness Date of Admission: 08/19/18 Chief Complaint: Chest pain The patient is a 42 M w/ PMHx: HTN, HLD, Diabetes mellitus type II, RENETTA on CPAP q HS, Former Tobacco use, GERD, CAD s/p PCI w/ OM 12/2016 and PTCA YOHANA prox RCA on 07/2017 with chronic chest pain history, seen ~ 6 months prior at [place] [facility] for chest pain w/ stress testing evaluation unremarkable at that time w/ recent 08/12/18 Cardiology follow-up with decision for repeat cardiac catheterization noted to have been planned for 08/12/[address] Liu; however, patient had onset of chest discomfort and presented to the OSH [place] ED w/ noted episode of ongoing chest pain while at work x 6 hours, constant, pressure and squeezing in nature with radiation to the LUE with associated diaphoresis and mild dyspnea, rated 7/10 upon presentation in the OSH ED. OSH ED evaluation and work- up included VS: T 37, HR 54, BP 117/80, RR 18, 97% on RA, CBC: WBC 10.9, Hgb 14.6, Plts 240 without shift, BMP: Na 140, K 3.8, CHl 106, Bicarb 26, BUN/Cr 15/0.8, glucose 97, BNP: 45, Trop: 0.01 and repeat delta 0.01, EKG: Sinus bradycardia with no acute evidence of ischemia, CXR: Unremarkable. In the OSH ED patient administered NG paste 1 inch, ASA with improvement. OSH ED physician discussed case with Dr. Powers prior to patient transfer. Upon transition to [facility] patient continues to note he is chest pain-free. Past Medical History Past Medical History (Chronic Problems): Chronic Problems (Last Reviewed 08/12/18 @ 13:25 by Annemarie Vázquez) Obesity (BMI 30-39.9) (Chronic) Anxiety and depression (Chronic) Schizophrenia (Chronic) Tobacco abuse (Chronic) Presence of stent in coronary artery (Chronic 08/20/17) PTCA/YOHANA to OM#1, mid RCA FFR (no PCI) 01/25/2017; PCI/YOHANA to RCA 08/20/2017; Atherosclerosis of [place] coronary artery of [place] heart without angina pectoris (Chronic) PTCA/YOHANA to OM#1, mid RCA FFR (no PCI) 01/25/2017; PCI/YOHANA to RCA 08/20/2017; HTN (hypertension) (Chronic) DM2 (diabetes mellitus, type 2) (Chronic) Hyperlipidemia (Chronic) Medical History: Medical History (Last Reviewed 08/12/18 @ 13:25 by Annemarie Vázquez) Hypotension (Acute) I95.9 RENETTA (obstructive sleep apnea) (Chronic) G47.33 Chest pain (Acute) R07.9 Fatigue (Acute) R53.83 SOB (shortness of breath) (Acute) R06.02 Dyspnea (Acute) R06.00 Atherosclerosis of [place] coronary artery of [place] heart without angina pectoris (Chronic) I25.10 PTCA/YOHANA to OM#1, mid RCA FFR (no PCI) 01/25/2017; PCI/YOHANA to RCA 08/20/2017; ACS (acute coronary syndrome) (Acute) I24.9 HTN (hypertension) (Chronic) I10 DM2 (diabetes mellitus, type 2) (Chronic) E11.9 Hyperlipidemia (Chronic) E78.5 Depression F32.9 RENETTA (obstructive sleep apnea) G47.33 Schizophrenia F20.9 Hypertension I10 Depression (Inactive) F32.9 Schizophrenia (Inactive) F20.9 Allergies Penicillins Allergy (Verified 08/06/18 18:47) Unknown olanzapine [From Zyprexa] Adverse Reaction (Severe, Verified 08/06/18 18:47) aggresion/sleepiness Home Medications: Ambulatory Orders Medication Instructions Recorded Aspirin [Aspirin, Baby] 81 mg PO DAILY@0800 /11/12 Brexpiprazole [Rexulti] 3 mg PO DAILY 01/24/17 Metoprolol Tartrate [Lopressor 12.5 mg PO BID #30 tab 01/26/17 (beta marely)] insulin glargine (U- 100) 100 30 units SC QHS 08/14/17 unit/mL subcutaneous solution fenofibrate 54 mg tablet 54 mg PO QDAY 08/15/17 pantoprazole 40 mg tablet,delayed 40 mg PO QDAY 08/15/17 release clopidogrel 75 mg tablet 75 mg PO DAILY #90 tab 09/17/17 metformin 500 mg tablet 500 mg PO BID 09/17/17 atorvastatin 40 mg tablet PO 30 Days #30 12/20/17 nitroglycerin 0.4 mg sublingual 0.4 mg SUBLINGUAL Q5M PRN #25 tab 12/20/17 tablet isosorbide mononitrate ER 60 mg 30 mg PO BID #30 tab 02/26/18 tablet,extended release 24 hr lisinopril 5 mg tablet 5 mg PO QDAY #90 tab 04/22/18 Surgical History: Surgical History (Last Updated 08/12/18 @ 13:30 by Annemarie Vázquez) Presence of stent in coronary artery (Chronic) Onset Date: 08/20/17 Z95.5 PTCA/YOHANA to OM#1, mid RCA FFR (no PCI) 01/25/2017; PCI/YOHANA to RCA 08/20/2017; Surgical History: - - PCI x2, cholecystectomy, appendectomy. Psychiatric History: Anxiety, Depression, Schizophrenia Lives: Spouse/ Significant Other Smoking Status: Former smoker Tobacco Use: Non-smoker Alcohol: None Drugs: None - *Family History Paternal Family History: Family History (Last Reviewed 08/12/18 @ 13:25 by Annemarie Vázquez) Father Heart disease Brother CAD (coronary artery disease) History Items: Heart Disease Sibling Family History: Family History (Last Reviewed 08/12/18 @ 13:25 by Annemarie Vázquez) Father Heart disease Brother CAD (coronary artery disease) History Items: Heart Disease - Brother with history of heart disease, coronary disease. Maternal Family History: Family History (Last Reviewed 08/12/18 @ 13:25 by Annemarie Vázquez) Father Heart disease Brother CAD (coronary artery disease) History Items: - - Patient notes mother healthy with no history of heart disease, diabetes, cancer. Review of Systems Constitutional: Reports: Malaise, Weakness, Fatigue. Denies: Chills, Fever, Weight Change HEENT: Denies: Head Aches, Sinus Congestion, Sinus Drainage Cardiovascular: Reports: Chest Pain. Denies: Palpitations Respiratory: Reports: Shortness of Breath, Shortness of breath at rest, Shortness of breath upon exertion. Denies: Cough, Sputum production, Wheezing Gastrointestinal: Denies: Abdominal Pain, Nausea, Vomiting Genitourinary: Denies: Dysuria Musculoskeletal: Denies: Joint Pain, Joint Tenderness Skin: Denies: Rash, Wounds Neurological: Denies: Numbness, Tingling, Focal weakness Psychiatric: Reports: Anxiety, Depression. Denies: Homicidal Ideations, Suicidal Ideations Hematologic/ Lymphatic: Reports: Easy Bruising, Easy Bleeding VTE Information - Inpt Only VTE Present on Admission: No VTE Mechan Device Prophylaxis: SCD's VTE Pharm Prophylaxis ordered?: No Reason prophylaxis not ordered:: Medical Contraindication - We will hold chemoprophylaxis for planned cardiac catheterization. Subjective: Patient seated upright in PCU bed, no acute distress, very flat affect. Objective: Physical Examination: General: awake, alert, oriented x 3 and cooperative, seated upright in the PCU bed in no apparent distress. Skin: normal color, turgor, no icterus, cyanosis except noted abrasions to the lower extremities, healing, scabs present. HEENT: AT/NC, EOMI, PERRLA, only dry MM, no carotid bruits or JVD noted; thickened neck makes imaging difficult. Lungs: Breath sounds bilaterally, greater bilateral bases, mild effort, no rales, ronchi or wheezing. Heart: Regular rate and rhythm; no gallop, rub audible. Abdomen: soft, obese, NTTP, ND, normal BS, no HSM. Extremities: no cyanosis, clubbing, or edema, skin. Neurological: patient awake, alert, oriented x 3; cognitive function intact; pupils equally reactive to light and accomodation; cranial nerves II-XII grossly normal, moving all 4 extremities, no focal deficits, strength moderately globally decreased. Psychiatric: affect appears extremely flat, no acute evidence of depressive or anxiety feelings. - Physical Exam Vital Signs Temp Pulse Resp BP Pulse Ox 97.8 F 61 18 128/72 H 97 08/19/18 05:12 08/19/18 05:12 08/19/18 05:12 08/19/18 05:12 08/19/18 05:12 Oxygen Delivery Method Room Air Weight: 218 lb 0.595 oz Body Mass Index (BMI) 37.4 Assessment/Plan All Active Problems (Last Reviewed 08/12/18 @ 13:25 by Annemarie Vázquez) Hypotension (Acute) RENETTA (obstructive sleep apnea) (Resolved) Chest pain (Acute) Fatigue (Acute) SOB (shortness of breath) (Acute) Dyspnea (Acute) ACS (acute coronary syndrome) (Acute) The patient is a 42 M w/ PMHx: HTN, HLD, Diabetes mellitus type II, RENETTA on CPAP q HS, Former Tobacco use, GERD, CAD s/p PCI w/ OM 12/2016 and PTCA YOHANA prox RCA on 07/2017 with chronic chest pain history, seen ~ 6 months prior at [place] [facility] for chest pain w/ stress testing evaluation unremarkable at that time w/ recent 08/12/18 Cardiology follow-up with decision for repeat cardiac catheterization noted to have been planned for 08/12/[address] Liu; however, patient had onset of chest discomfort and presented to the OSH [place] ED w/ noted episode of ongoing chest pain while at work x 6 hours, constant, pressure and squeezing in nature with radiation to the LUE with associated diaphoresis and mild dyspnea, rated 7/10 upon presentation in the OSH ED. (1) Chest Pain: OSH ED evaluation and work-up included VS: T 37, HR 54, BP 117/80, RR 18, 97% on RA, CBC: WBC 10.9, Hgb 14.6, Plts 240 without shift, BMP: Na 140, K 3.8, CHl 106, Bicarb 26, BUN/Cr 15/0.8, glucose 97, BNP: 45, Trop: 0.01 and repeat delta 0.01, EKG: Sinus bradycardia with no acute evidence of ischemia, CXR: Unremarkable. Will admit to PCU, place on a monitored bed to assure no acute myocardial infarction with serial cardiac enzymes and EKGs. ASA, NG, morphine. Cardiology consulted, planned cardiac catheterization, unclear if in AM secondary to holiday however to be cautious will maintain NPO status on IVFs. (2) CAD: s/p PCI w/ OM 12/2016 and PTCA YOHANA prox RCA on 07/2017, maintain on asa, plavix, metoprolol, statin therapies. (3) Diabetes mellitus type II: Hold oral home regimen, continue home insulin regimen, NPO status, accu checks w/ ISS, nutrition consultation for education and teaching. (4) Anxiety and Depression/Bipolar Disorder/Schizophrenia: Continue home rexulti regimen. (5) Hypertension: Continue home regimen including lisinopril, metoprolol, PRN hydralazine. (6) Hyperlipidemia: Continue home statin regimen. AM FLP. (7) History of Tobacco use: Encouraged continued cessation. (8) RENETTA: CPAP q HS. (9) GERD: PPI. (10) DVT Prophylaxis: SCDs, hold chemoprophylaxis given planned cardiac catheterization. Code Visit OBSV E&M: 53105 Initial observation care L3
--- NOTE | 2018-08-19 05:53 | EKG12_ITS ---
Test Reason : CP ADMISSION Blood Pressure : / mmHG Vent. Rate : 057 BPM Atrial Rate : 057 BPM P-R Int : 098 ms QRS Dur : 078 ms QT Int : 432 ms P-R-T Axes : 020 004 005 degrees QTc Int : 420 ms Sinus bradycardia with short ME Otherwise normal ECG When compared with ECG of 21-AUG-2017 05:39, No significant change was found Confirmed by MAGUI GARCIA, MP ([id number]), loan expeditor CECILLE PEACE ([id number] on 08/20/2018 1:12:35 PM Referred By: Mouna Henry Confirmed By:MP KILGORE MD
[2018-08-19] MEDS: 0.9% Normal Saline 1,000 ML 100 ML IV (06:20)
[2018-08-19 06:26] LABS: Absolute Lymphocyte Count 2.79 X10^3/ul (0.83-4.51); Absolute Neutrophil Count 8.1 X10^3/uL (2.0-7.7); Basophil# 0.03 X10^3/uL; Basophil% 0.2 % (0-1); Eosinophil# 0.08 X10^3/uL; Eosinophils% 0.7 % (0-5); Hematocrit 41.2 % (40-54); Lymphocyte # 2.79 X10^3/ul (4.0); Lymphocyte % 23.2 % (19-41); Mean Corpuscular Hgb 30.6 pg (27.0-32.0); Mean Platelet Vol. 11.3 fl (6.2-12.0); Monocyte# 0.99 X10^3/uL; Monocyte% 8.2 % (0-10); Neutrophil % 67.4 % (47-70); Platelet Count 204 K/mm3 (150-450); RBC Distribution Width CV 13.8 % (11.6-14.6); RBC Distribution Width SD 44.9 fl (35.1-43.9); Red Blood Count 4.58 M/mm3 (4.6-6.2)
[2018-08-19 06:31] LABS: Bedside Glucose 73 mg/dL (70-110)
[2018-08-19 06:40] LABS: Anion Gap 9 (5-15); BUN 15 mg/dL (7-18); BUN/Creat Ratio 20.3 RATIO (10-20); Calcium,Total 8.7 mg/dL (8.5-10.1); Chloride 109 mmol/L (98-107); Cholesterol 110 mg/dL (200); Creatinine, Serum 0.74 mg/dL (0.70-1.30); EST Glomerular Filtration Rate 124 mL/min (>60); Est Glom Filt Rate - Afr Amer 150 mL/min (>60); Glucose 72 mg/dL (74-106); High Density Lipoprotein 30 mg/dL; Magnesium 2.1 mg/dL (1.6-2.6); Potassium 3.5 mmol/L (3.5-5.1); Sodium Level 141 mmol/L (136-145); Triglycerides 90 mg/dL; Very Low Density Lipoprotein 18 mg/dL (5-40)
[2018-08-19 06:42] LABS: POSITIVE COUNT NO; POSITIVE DIFFERENTIAL NO; POSITIVE MORPHOLOGY NO
[2018-08-19 06:47] LABS: International Normalized Ratio 1.1
[2018-08-19 06:48] LABS: Partial Thromboplast Time 29.4 Seconds (24.1-36.2)
[2018-08-19] MEDS: Dextrose 50%-Water 25 GM/50 ML DISP.SYRIN IV (06:58)
--- NOTE | 2018-08-19 07:14 | PCM.CONS.C ---
Reason for Consult Date of Consultation: 08/19/18 Reason for Consultation: Chest pain History of Present Illness: HU PEREZ, is a 42 M who presented to the emergency room at [facility] complaining of chest discomfort. He describes this as a pressure-like sensation similar to his angina in the past. 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 As you know, the patient has a history of hypertension, hypercholesterolemia, tobacco abuse, diabetes, hyperlipidemia, and obstructive sleep apnea patient has a history of coronary artery disease status post stenting to OM #1 in December 2016 and PTCA/YOHANA to prox RCA in July 2017, hyperlipidemia, and obstructive sleep apnea. He completed cardiac rehab this past week without any difficulty. He had been admitted to [facility] approximately 6 months ago and underwent a stress test which was negative for ischemia. He has had no dizziness or diaphoresis no near syncope or syncope. He had apparently been scheduled for a cardiac catheterization this Sunday. I discussed with the ER physician at [place] but neither the patient nor the physician that I thought it would be prudent to wait. He was therefore transferred for an urgent procedure. Past Medical History Allergies/Adverse Reactions: Allergies Penicillins Allergy (Verified 08/06/18 18:47) Unknown olanzapine [From Zyprexa] Adverse Reaction (Severe, Verified 08/06/18 18:47) aggresion/sleepiness Home Medications: Ambulatory Orders Medication Instructions Recorded Aspirin [Aspirin, Baby] 81 mg PO DAILY@0800 03/02/16 Brexpiprazole [Rexulti] 3 mg PO DAILY 01/24/17 Metoprolol Tartrate [Lopressor 12.5 mg PO BID #30 tab 01/26/17 (beta marely)] insulin glargine (U- 100) 100 30 units SC QHS 08/14/17 unit/mL subcutaneous solution fenofibrate 54 mg tablet 54 mg PO QDAY 08/15/17 pantoprazole 40 mg tablet,delayed 40 mg PO QDAY 08/15/17 release clopidogrel 75 mg tablet 75 mg PO DAILY #90 tab 09/17/17 metformin 500 mg tablet 500 mg PO BID 09/17/17 atorvastatin 40 mg tablet 80 mg PO QHS 30 Days #30 12/20/17 nitroglycerin 0.4 mg sublingual 0.4 mg SUBLINGUAL Q5M PRN #25 tab 12/20/17 tablet isosorbide mononitrate ER 60 mg 30 mg PO BID #30 tab 02/26/18 tablet,extended release 24 hr lisinopril 5 mg tablet 5 mg PO QDAY #90 tab 04/22/18 Past Medical History (Chronic Problems): Chronic Problems (Last Reviewed 08/12/18 @ 13:25 by Annemarie Vázquez) Obesity (BMI 30-39.9) (Chronic) Anxiety and depression (Chronic) Schizophrenia (Chronic) Tobacco abuse (Chronic) Presence of stent in coronary artery (Chronic 08/20/17) PTCA/YOHANA to OM#1, mid RCA FFR (no PCI) 01/25/2017; PCI/YOHANA to RCA 08/20/2017; Atherosclerosis of [place] coronary artery of [place] heart without angina pectoris (Chronic) PTCA/YOHANA to OM#1, mid RCA FFR (no PCI) 01/25/2017; PCI/YOHANA to RCA 08/20/2017; HTN (hypertension) (Chronic) DM2 (diabetes mellitus, type 2) (Chronic) Hyperlipidemia (Chronic) Surgical History: - - PCI x2, cholecystectomy, appendectomy. Psychiatric History: Anxiety, Depression, Schizophrenia - *Family History Paternal Family History: Family History (Last Reviewed 08/12/18 @ 13:25 by Annemarie Vázquez) Father Heart disease Brother CAD (coronary artery disease) History Items: Heart Disease Sibling Family History: Family History (Last Reviewed 08/12/18 @ 13:25 by Annemarie Vázquez) Father Heart disease Brother CAD (coronary artery disease) History Items: Heart Disease - Brother with history of heart disease, coronary disease. Maternal Family History: Family History (Last Reviewed 08/12/18 @ 13:25 by Annemarie Vázquez) Father Heart disease Brother CAD (coronary artery disease) History Items: - - Patient notes mother healthy with no history of heart disease, diabetes, cancer. Lives: Spouse/ Significant Other Smoking Status: Former smoker Tobacco Use: Non-smoker Alcohol: None Drugs: None Review of Systems - Review of Systems General: Denies: Fever, Night Sweats, Fatigue HEENT: Denies: Vision Change Cardiovascular: Reports: Chest Discomfort, Chest Discomfort with Exertion. Denies: Shortness of Breath, Orthopnea, PND, Peripheral Edema, Palpitations, Lightheadedness, Dizziness, Near Syncope, Syncope Respiratory: Denies: Cough, Sputum Production, Hemoptysis Gastrointestinal: Denies: Hematemesis, Hematochezia, Melena Genitourinary: Denies: Dysuria, Hematuria Muscoloskeletal: Denies: Myalgias Skin: Denies: Rash Neurological: Denies: Dizziness Psychiatric: Denies: Anxiety Endocrine: Denies: Unexplained Weight Loss Hematologic/ Lymphatic: Denies: Anemia Subjectve: Pleasant gentleman in no apparent distress Objective: Vital Signs Temp Pulse Resp BP Pulse Ox 97.8 F 55 L 18 128/72 H 97 08/19/18 05:12 08/19/18 05:15 08/19/18 05:12 08/19/18 05:12 08/19/18 05:12 Oxygen Delivery Method Room Air Weight: 218 lb 0.595 oz Body Mass Index (BMI) 37.4 Intake and Output for Last 24 Hours 08/17/18 08/18/18 08/19/18 23:59 23:59 23:59 Intake Total Balance General: Awake, Alert, Oriented x 3 HEENT: PERRL, EOMI, Sclera Non Icteric Neck: Supple, Good ROM, No Lymph Node Enlargement Lungs: Clear to auscultation Cardiovascular: Regular Rhythm, Normal S1, Normal S2, No Murmurs, No Rubs, No Gallops Vascular: No Carotid Bruits, Normal Femoral Pulses, Normal Radial Pulses, Normal Dorsalis Pedal Pulse, Normal Posterior Tibial Pulses Abdomen: Bowel Sounds Present, Soft, Non Tender, No HSM, No Organomegaly Extremities: No Cyanosis, No Clubbing, No edema Lymphatic: No Lymph Node Enlargement Neurological: No Focal Motor or Sensory Deficit Psych/Mental Status: Appropriate 08/19/18 05:20: Sodium 141, Potassium 3.5, Chloride 109 H, Carbon Dioxide 23.0, Anion Gap 9, BUN 15, Creatinine 0.74, Est GFR (MDRD) Af Amer 150, Est GFR (MDRD) Non-Af 124, BUN/Creatinine Ratio 20.3 H, Glucose 72 L, Calcium 8.7, Magnesium 2.1, Troponin I < 0.015, Triglycerides 90, Cholesterol 110, LDL Cholesterol 62, VLDL Cholesterol 18, HDL Cholesterol 30 L 08/19/18 05:20: WBC 12.0 H, RBC 4.58 L, Hgb 14.0, Hct 41.2, MCV 90.0, MCH 30.6, MCHC 34.0, RDW 13.8, RDW Differential 44.9 H, Plt Count 204, MPV 11.3, Immature Gran % (Auto) 0.300, Neut % (Auto) 67.4, Lymph % (Auto) 23.2, [place] % (Auto) 8.2, Eos % (Auto) 0.7, Baso % (Auto) 0.2, Absolute Neuts (auto) 8.1 H, Total Counted Not Reportable 08/19/18 05:20: PT 14.0, INR 1.1, APTT 29.4 Rhythm: EKG: Normal sinus rhythm with no acute changes Assessment/Plan 1. Chest pain Patient has known coronary artery disease status post previous angioplasty and stenting. He has had recent stress test which are normal. However he continues to have the persistent chest discomfort. The plan will be to perform a repeat catheterization today. If the vessels are noted to be patent he may be treated with oral nitrates or Ranexa. If there is significant stenosis noted a discussion will be undertaken as to the best plan of action. 2. Tobacco abuse The patient has been counseled regarding the above. 3. Hyperlipidemia Will continue with aggressive lipid-lowering. Thank you for allowing me to participate in the care of your patient. Please don't hesitate to call if any issues arise
--- NOTE | 2018-08-19 07:19 | CON.PCM_ITS ---
Reason for Consult Date of Consultation: 08/19/18 Reason for Consultation: Chest pain History of Present Illness: HU PEREZ, is a 42 M who presented to the emergency room at [facility] complaining of chest discomfort. He describes this as a pressure-like sensation similar to his angina in the past. 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 As you know, the patient has a history of hypertension, hypercholesterolemia, tobacco abuse, diabetes, hyperlipidemia, and obstructive sleep apnea patient has a history of coronary artery disease status post stenting to OM #1 in December 2016 and PTCA/YOHANA to prox RCA in July 2017, hyperlipidemia, and obstructive sleep apnea. He completed cardiac rehab this past week without any difficulty. He had been admitted to [facility] approximately 6 months ago and underwent a stress test which was negative for ischemia. He has had no dizziness or diaphoresis no near syncope or syncope. He had apparently been scheduled for a cardiac catheterization this Sunday. I discussed with the ER physician at [place] but neither the patient nor the physician that I thought it would be prudent to wait. He was therefore transferred for an urgent procedure. Past Medical History Allergies/Adverse Reactions: Allergies Penicillins Allergy (Verified 08/06/18 18:47) Unknown olanzapine [From Zyprexa] Adverse Reaction (Severe, Verified 08/06/18 18:47) aggresion/sleepiness Home Medications: Ambulatory Orders Medication Instructions Recorded Aspirin [Aspirin, Baby] 81 mg PO DAILY@0800 03/02/16 Brexpiprazole [Rexulti] 3 mg PO DAILY 01/24/17 Metoprolol Tartrate [Lopressor 12.5 mg PO BID #30 tab 01/26/17 (beta marely)] insulin glargine (U- 100) 100 30 units SC QHS 08/14/17 unit/mL subcutaneous solution fenofibrate 54 mg tablet 54 mg PO QDAY 08/15/17 pantoprazole 40 mg tablet,delayed 40 mg PO QDAY 08/15/17 release clopidogrel 75 mg tablet 75 mg PO DAILY #90 tab 09/17/17 metformin 500 mg tablet 500 mg PO BID 09/17/17 atorvastatin 40 mg tablet 80 mg PO QHS 30 Days #30 12/20/17 nitroglycerin 0.4 mg sublingual 0.4 mg SUBLINGUAL Q5M PRN #25 tab 12/20/17 tablet isosorbide mononitrate ER 60 mg 30 mg PO BID #30 tab 02/26/18 tablet,extended release 24 hr lisinopril 5 mg tablet 5 mg PO QDAY #90 tab 04/22/18 Past Medical History (Chronic Problems): Chronic Problems (Last Reviewed 08/12/18 @ 13:25 by Annemarie Vázquez) Obesity (BMI 30-39.9) (Chronic) Anxiety and depression (Chronic) Schizophrenia (Chronic) Tobacco abuse (Chronic) Presence of stent in coronary artery (Chronic 08/20/17) PTCA/YOHANA to OM#1, mid RCA FFR (no PCI) 01/25/2017; PCI/YOHANA to RCA 08/20/2017; Atherosclerosis of [place] coronary artery of [place] heart without angina pectoris (Chronic) PTCA/YOHANA to OM#1, mid RCA FFR (no PCI) 01/25/2017; PCI/YOHANA to RCA 08/20/2017; HTN (hypertension) (Chronic) DM2 (diabetes mellitus, type 2) (Chronic) Hyperlipidemia (Chronic) Surgical History: - - PCI x2, cholecystectomy, appendectomy. Psychiatric History: Anxiety, Depression, Schizophrenia - *Family History Paternal Family History: Family History (Last Reviewed 08/12/18 @ 13:25 by Annemarie Vázquez) Father Heart disease Brother CAD (coronary artery disease) History Items: Heart Disease Sibling Family History: Family History (Last Reviewed 08/12/18 @ 13:25 by Annemarie Vázquez) Father Heart disease Brother CAD (coronary artery disease) History Items: Heart Disease - Brother with history of heart disease, coronary disease. Maternal Family History: Family History (Last Reviewed 08/12/18 @ 13:25 by Annemarie Vázquez) Father Heart disease Brother CAD (coronary artery disease) History Items: - - Patient notes mother healthy with no history of heart disease, diabetes, cancer. Lives: Spouse/ Significant Other Smoking Status: Former smoker Tobacco Use: Non-smoker Alcohol: None Drugs: None Review of Systems - Review of Systems General: Denies: Fever, Night Sweats, Fatigue HEENT: Denies: Vision Change Cardiovascular: Reports: Chest Discomfort, Chest Discomfort with Exertion. Denies: Shortness of Breath, Orthopnea, PND, Peripheral Edema, Palpitations, Lightheadedness, Dizziness, Near Syncope, Syncope Respiratory: Denies: Cough, Sputum Production, Hemoptysis Gastrointestinal: Denies: Hematemesis, Hematochezia, Melena Genitourinary: Denies: Dysuria, Hematuria Muscoloskeletal: Denies: Myalgias Skin: Denies: Rash Neurological: Denies: Dizziness Psychiatric: Denies: Anxiety Endocrine: Denies: Unexplained Weight Loss Hematologic/ Lymphatic: Denies: Anemia Subjectve: Pleasant gentleman in no apparent distress Objective: Vital Signs Temp Pulse Resp BP Pulse Ox 97.8 F 55 L 18 128/72 H 97 08/19/18 05:12 08/19/18 05:15 08/19/18 05:12 08/19/18 05:12 08/19/18 05:12 Oxygen Delivery Method Room Air Weight: 218 lb 0.595 oz Body Mass Index (BMI) 37.4 Intake and Output for Last 24 Hours 08/17/18 08/18/18 08/19/18 23:59 23:59 23:59 Intake Total Balance General: Awake, Alert, Oriented x 3 HEENT: PERRL, EOMI, Sclera Non Icteric Neck: Supple, Good ROM, No Lymph Node Enlargement Lungs: Clear to auscultation Cardiovascular: Regular Rhythm, Normal S1, Normal S2, No Murmurs, No Rubs, No Gallops Vascular: No Carotid Bruits, Normal Femoral Pulses, Normal Radial Pulses, Normal Dorsalis Pedal Pulse, Normal Posterior Tibial Pulses Abdomen: Bowel Sounds Present, Soft, Non Tender, No HSM, No Organomegaly Extremities: No Cyanosis, No Clubbing, No edema Lymphatic: No Lymph Node Enlargement Neurological: No Focal Motor or Sensory Deficit Psych/Mental Status: Appropriate 08/19/18 05:20: Sodium 141, Potassium 3.5, Chloride 109 H, Carbon Dioxide 23.0, Anion Gap 9, BUN 15, Creatinine 0.74, Est GFR (MDRD) Af Amer 150, Est GFR (MDRD) Non-Af 124, BUN/Creatinine Ratio 20.3 H, Glucose 72 L, Calcium 8.7, Magnesium 2.1, Troponin I < 0.015, Triglycerides 90, Cholesterol 110, LDL Cholesterol 62, VLDL Cholesterol 18, HDL Cholesterol 30 L 08/19/18 05:20: WBC 12.0 H, RBC 4.58 L, Hgb 14.0, Hct 41.2, MCV 90.0, MCH 30.6, MCHC 34.0, RDW 13.8, RDW Differential 44.9 H, Plt Count 204, MPV 11.3, Immature Gran % (Auto) 0.300, Neut % (Auto) 67.4, Lymph % (Auto) 23.2, [place] % (Auto) 8.2, Eos % (Auto) 0.7, Baso % (Auto) 0.2, Absolute Neuts (auto) 8.1 H, Total Counted Not Reportable 08/19/18 05:20: PT 14.0, INR 1.1, APTT 29.4 Rhythm: EKG: Normal sinus rhythm with no acute changes Assessment/Plan 1. Chest pain * Patient has known coronary artery disease status post previous angioplasty and stenting. He has had recent stress test which are normal. However he continues to have the persistent chest discomfort. * The plan will be to perform a repeat catheterization today. If the vessels are noted to be patent he may be treated with oral nitrates or Ranexa. * If there is significant stenosis noted a discussion will be undertaken as to the best plan of action. * 2. Tobacco abuse * The patient has been counseled regarding the above. * 3. Hyperlipidemia * Will continue with aggressive lipid-lowering. * * Thank you for allowing me to participate in the care of your patient. Please don't hesitate to call if any issues arise
[2018-08-19] MEDS: Pantoprazole Sodium 40 MG Tablet PO (07:56)
[2018-08-19] MEDS: Fenofibrate 48 MG Tablet PO (07:56)
[2018-08-19] MEDS: Lisinopril 5 MG Tablet PO (07:56)
[2018-08-19] MEDS: Metoprolol Tartrate 25 MG Tablet 12.5 MG PO (07:56)
[2018-08-19] MEDS: Isosorbide Mononitrate 30 MG Tablet PO (07:56)
[2018-08-19] MEDS: Clopidogrel Bisulfate 75 MG Tablet PO (07:57)
[2018-08-19] MEDS: Aspirin 81 MG TAB.CHEW PO (07:57)
--- NOTE | 2018-08-19 09:01 | PN.CARD_ITS ---
Subjectve: Patient seen and evaluated. Underwent cardiac catheterization today Objective: Vital Signs Temp Pulse Resp BP Pulse Ox 97.8 F 60 18 128/72 H 96 08/19/18 05:12 08/19/18 07:56 08/19/18 05:12 08/19/18 05:12 08/19/18 08:13 Oxygen Delivery Method Room Air Weight: 218 lb 0.595 oz Body Mass Index (BMI) 37.4 Intake and Output for Last 24 Hours 08/17/18 08/18/18 08/19/18 23:59 23:59 23:59 Intake Total Balance General: Awake, Alert, Oriented x 3 HEENT: PERRL, EOMI, Sclera Non Icteric Neck: Supple, Good ROM, No Lymph Node Enlargement Lungs: Clear to auscultation Cardiovascular: Regular Rhythm, Normal S1, Normal S2, No Murmurs, No Rubs, No Gallops Vascular: No Carotid Bruits, Normal Femoral Pulses, Normal Radial Pulses, Normal Dorsalis Pedal Pulse, Normal Posterior Tibial Pulses Abdomen: Bowel Sounds Present, Soft, Non Tender, No HSM, No Organomegaly Extremities: No Cyanosis, No Clubbing, No edema Neurological: No Focal Motor or Sensory Deficit 08/19/18 05:20: Sodium 141, Potassium 3.5, Chloride 109 H, Carbon Dioxide 23.0, Anion Gap 9, BUN 15, Creatinine 0.74, Est GFR (MDRD) Af Amer 150, Est GFR (MDRD) Non-Af 124, BUN/Creatinine Ratio 20.3 H, Glucose 72 L, Calcium 8.7, Magnesium 2.1, Troponin I < 0.015, Triglycerides 90, Cholesterol 110, LDL Cholesterol 62, VLDL Cholesterol 18, HDL Cholesterol 30 L 08/19/18 05:20: WBC 12.0 H, RBC 4.58 L, Hgb 14.0, Hct 41.2, MCV 90.0, MCH 30.6, MCHC 34.0, RDW 13.8, RDW Differential 44.9 H, Plt Count 204, MPV 11.3, Immature Gran % (Auto) 0.300, Neut % (Auto) 67.4, Lymph % (Auto) 23.2, [place] % (Auto) 8.2, Eos % (Auto) 0.7, Baso % (Auto) 0.2, Absolute Neuts (auto) 8.1 H, Total Counted Not Reportable 08/19/18 05:20: PT 14.0, INR 1.1, APTT 29.4 Rhythm: EKG: ECHO: Stress Test: Cardiac Cath: PCI: CT Surgery: Holter monitor: EPS: PPM: CXR: Chest CT Scan: Medical Necessity - Tobacco Use Smoking Status: Former smoker Tobacco Use: Non-smoker Assessment/Plan 1. Chest pain * Patient has known coronary artery disease status post previous angioplasty and stenting. He has had recent stress test which are normal. However he continues to have the persistent chest discomfort. * He underwent cardiac catheterization today which demonstrated the following * Codominant right coronary artery with previously placed stents patent with RV marginal branch with 50% stenosis * Separate LAD and left circumflex ostia * LAD with no significant stenosis and first diagonal with mild disease * Left circumflex artery with no significant stenosis noted * Preserved left ventricular systolic function * Based on the above angiographic findings and as stated by the primary town administrator would put him on isosorbide and discharge him later today for outpatient follow-up 2. Tobacco abuse * The patient has been counseled regarding the above. * 3. Hyperlipidemia * Will continue with aggressive lipid-lowering. * * Thank you for allowing me to participate in the care of your patient. Please don't hesitate to call if any issues arise
--- NOTE | 2018-08-19 09:07 | CL.D_ITS ---
Patient Name: HU PEREZ Study Date: 08/19/2018 Performing: Barry Powers MD Ht: 64 inches 163 cm : 1975 Wt: 218.5 lbs 99 kg Age: 42 Gender: male BSA: 2.03 PROCEDURE(S) PERFORMED HP06-OBE/COR/LV CLINICAL PROFILE AND INDICATIONS Indications: Worsening Angina Heart Failure: None Stress/Imaging Stress/Image Study Performed: No CAD Presentations: Unstable angina. CONCLUSIONS No significant obstructive coronary disease. Previously placed stent is patent. RECOMMENDATIONS Medical therapy DESCRIPTION OF PROCEDURE The patient arrived to the procedure lab. The risks and benefits of the procedure as well as a full d escription of our services here and current unavailability of surgical backup were fully explained to the patient and/or their significant other prior to the catheterization. The Timeout was completed, verifying the correct patient and procedure. The patient's procedural site was prepped and draped in the usual fashion. Local anesthetic was given subcutaneously to right radial region with Lidocaine 2% . Using a modified Seldinger technique, arterial access was obtained via the right radial artery, a 6 Fr sheath was inserted. Right Coronary Artery selective angiography was performed in multiple views using a 5 Fr. 4.0 [place] catheter. Left Coronary Artery selective angiography was performed in multipl e views using a 5 Fr. 4.0 [place] catheter. Left Ventriculography was performed in PASTRANA projection using a 5 Fr. [place] catheter. LV to AO pullback pressures were then recorded.The arterial sheath was pulled and a TR Band was applied for hemostasis CORONARY ANGIOGRAPHY DOMINANCE: Co- Dominant LEFT HEART ASSESSMENT Left Ventricular Ejection Fraction: by LV Gram 60 % Normal LV wall motion Normal Left Ventricular systolic function LEFT MAIN: Angiographically normal LEFT ANTERIOR DECENDING ARTERY: No significant disease noted DIAGONAL 1: Ostial - 50 % Stenosis CIRCUMFLEX ARTERY: Mild luminal irregularities RIGHT CORONARY ARTERY: MID RCA: Previously placed stent is patent ACUTE MARGINAL: 50 % Stenosis COMPLICATIONS No Complications PROCEDURE MEDICATIONS Versed 1 mg IV Fentanyl 50 mcg IV Versed 1 mg IV Oxygen: 2 L/min via nasal cannula Heparin diluted in 23cc Heparinized saline. Patient given 10cc IA of this solution. 08/19/2018 08:41: 32 Verapamil 2.5mg, Ntg 100mcgs, 2000 units of Heparin diluted in 23cc Heparinized saline. Patient give n 10cc IA of this solution. 08/19/2018 08:41:32 SUMMARY OF HEMODYNAMIC DATA Time AIR REST ECG 08:16:45 AO 123/83 (101) SA 08:43:52 LV 115/0, 8 08:53:43 LV 114/1, 9 08:53:49 LV 98/2, 9 08:55:08 LV 105/3, 11 08:55:15 LVp 108/4, 12 08:55:18 AOp 114/73 (92) 08:55:23 Signed By Barry Powers MD On 08/19/2018 09:06:26 Barry Powers MD
--- NOTE | 2018-08-19 09:28 | CASEMGMT ---
According to the [facility] website, the following are in-network tertiary facilities: [facility], [facility], [facility], [facility], [facility], [facility], [facility], [facility], [facility], and . Liz ORTEGA CM
--- NOTE | 2018-08-19 11:17 | PCM.DC ---
- Discharge Diagnoses Current Active Problems: Current Active and Chronic Problems (Last Reviewed 08/12/18 @ 13:25 by Annemarie Vázquez) Obesity (BMI 30-39.9) (Chronic) Anxiety and depression (Chronic) Schizophrenia (Chronic) Reason(s) for Visit for Discharge Instructions: Chest pain You will use the following diet at home:: Cardiac Your food should be the consistency of: Regular Your liquids should be the consistency of: Regular/Thin Discharge Activity: Return to Normal Activity Allergies/Adverse Reactions: Allergies Penicillins Allergy (Verified 08/06/18 18:47) Unknown olanzapine [From Zyprexa] Adverse Reaction (Severe, Verified 08/06/18 18:47) aggresion/sleepiness Medications to take at Discharge Aspirin [Aspirin, Baby] 81 mg PO DAILY@0800 03/02/16 Brexpiprazole [Rexulti] 3 mg PO DAILY 01/24/17 Metoprolol Tartrate [Lopressor (beta marely)] 12.5 mg PO BID #30 tab 01/26/17 insulin glargine (U- 100) 100 unit/mL subcutaneous solution 30 units SC QHS 08/14/17 fenofibrate 54 mg tablet 54 mg PO QDAY 08/15/17 pantoprazole 40 mg tablet,delayed release 40 mg PO QDAY 08/15/17 clopidogrel 75 mg tablet 75 mg PO DAILY #90 tab 09/17/17 metformin 500 mg tablet 500 mg PO BID 09/17/17 atorvastatin 40 mg tablet 80 mg PO QHS 30 Days #30 12/20/17 nitroglycerin 0.4 mg sublingual tablet 0.4 mg SUBLINGUAL Q5M PRN #25 tab 12/20/17 isosorbide mononitrate ER 60 mg tablet,extended release 24 hr 30 mg PO BID #30 tab 02/26/18 lisinopril 5 mg tablet 5 mg PO QDAY #90 tab 04/22/18 Primary Care Physician: Maral Balderrama [Primary Care Provider] - Please follow up with your Primary Care Physician in: within 1-2 weeks Test Results: Test results from this visit will be discussed in further detail at your follow-up appointment, if applicable. When: Follow-up with your take off worker within 2 weeks Proposed Discharge Date: 08/19/18
--- NOTE | 2018-08-19 11:19 | PCM.DC.SUM ---
Discharge Date and Diagnosis Date of Admission: 08/19/18 Date of Discharge: 08/19/18 - Secondary Discharge Diagnosis Chronic Problems (Last Reviewed 08/12/18 @ 13:25 by Annemarie Vázquez) Obesity (BMI 30-39.9) (Chronic) Anxiety and depression (Chronic) Schizophrenia (Chronic) Tobacco abuse (Chronic) Presence of stent in coronary artery (Chronic 08/20/17) PTCA/YOHANA to OM#1, mid RCA FFR (no PCI) 01/25/2017; PCI/YOHANA to RCA 08/20/2017; Atherosclerosis of habematolel coronary artery of habematolel heart without angina pectoris (Chronic) PTCA/YOHANA to OM#1, mid RCA FFR (no PCI) 01/25/2017; PCI/YOHANA to RCA 08/20/2017; HTN (hypertension) (Chronic) DM2 (diabetes mellitus, type 2) (Chronic) Hyperlipidemia (Chronic) Hospital Course and Treatment Cardiology Operations: None Procedures: Cardiac catheterization Summary of Care Provided: The patient is a 42 year old M with past medical history of hyperlipidemia, hypertension, type II DM, RENETTA on CPAP, history of CAD status post stent comes in with chest pain. Patient had had a cardiac cath done in July 2017 and there was a plan for follow-up with repeat cardiac catheterization for chronic chest pain. Was admitted to the [facility] 6 months ago underwent stress test which was negative. He had a cardiac catheterisation which was scheduled for the coming Sunday. Patient underwent cardiac catheterization which showed codominant right coronary artery with previously placed stents patent with RV marginal branch with 50% stenosis, separate LAD and left circumflex ostia, LAD with no significant stenosis and first diagonal with mild disease, left circumflex artery with no significant stenosis noted, preserved left ventricular systolic function. Patient was discharged subsequently to follow-up with his primary parking manager. Subjective: Patient was seen and examined. No new complains. He feels well. Had a cardiac cath done this morning. Denies any chest pain or dizziness or palpitations. - Physical Exam General: Alert, Oriented x3, Cooperative, No apparent distress HEENT: Atraumatic, PERRLA, EOMI, Normocephalic Neck: Supple, No JVD, Negative Carotid Bruits Lungs: Clear to auscultation, Normal air movement Cardiovascular: Regular rate, Regular Rhythm, Normal S1, Normal S2, No murmurs Abdomen: Bowel Sounds Present, Soft, Non Tender, Non-Distended, No Hepato-splenomegaly Extremities: No edema Skin: No rashes, No breakdown Musculoskeletal: No Tenderness to Palpation of Joints or Extremities Lymphatic: No Cervical, Supraclavicular, or Inguinal Adenopathy Neurological: Cranial nerves II-XII grossly intact Psych/Mental Status: Normal Affect, Appropriate Vital Signs Temp Pulse Resp BP Pulse Ox 97.1 F L 54 L 17 112/66 98 08/19/18 10:35 08/19/18 10:35 08/19/18 10:35 08/19/18 10:35 08/19/18 10:35 Oxygen Delivery Method Room Air Weight: 98.9 kg Body Mass Index (BMI) 37.4 Intake and Output for Last 24 Hours 08/17/18 08/18/18 08/19/18 23:59 23:59 23:59 Intake Total Balance Laboratory Tests Past 24 Hrs 08/19/18 08/19/18 08/19/18 05:20 05:20 05:20 WBC 12.0 H RBC 4.58 L Hgb 14.0 Hct 41.2 MCV 90.0 MCH 30.6 MCHC 34.0 RDW 13.8 RDW Differential 44.9 H Plt Count 204 MPV 11.3 Immature Gran % (Auto) 0.300 Neut % (Auto) 67.4 Lymph % (Auto) 23.2 [place] % (Auto) 8.2 Eos % (Auto) 0.7 Baso % (Auto) 0.2 Absolute Neuts (auto) 8.1 H Absolute Lymphs (auto) 2.79 Total Counted Not Reportable PT 14.0 INR 1.1 APTT 29.4 Sodium 141 Potassium 3.5 Chloride 109 H Carbon Dioxide 23.0 Anion Gap 9 BUN 15 Creatinine 0.74 Estim Creat Clear Calc 110.00 Est GFR (MDRD) Af Amer 150 Est GFR (MDRD) Non-Af 124 BUN/Creatinine Ratio 20.3 H Glucose 72 L Calcium 8.7 Magnesium 2.1 Troponin I < 0.015 Triglycerides 90 Cholesterol 110 LDL Cholesterol 62 VLDL Cholesterol 18 HDL Cholesterol 30 L 08/19/18 09:34 WBC RBC Hgb Hct MCV MCH MCHC RDW RDW Differential Plt Count MPV Immature Gran % (Auto) Neut % (Auto) Lymph % (Auto) [place] % (Auto) Eos % (Auto) Baso % (Auto) Absolute Neuts (auto) Absolute Lymphs (auto) Total Counted PT INR APTT Sodium Potassium Chloride Carbon Dioxide Anion Gap BUN Creatinine Estim Creat Clear Calc Est GFR (MDRD) Af Amer Est GFR (MDRD) Non-Af BUN/Creatinine Ratio Glucose Calcium Magnesium Troponin I < 0.015 Triglycerides Cholesterol LDL Cholesterol VLDL Cholesterol HDL Cholesterol POC Glucose 08/19/18 06:24 POC Glucose 73 Discharge Diet: Low fat/ Low Cholesterol, 2000 mg Sodium Diet Discharge Activity: Return to Normal Activity Home Medications: Medications to take at Discharge Aspirin [Aspirin, Baby] 81 mg PO DAILY@0800 /11/12 Brexpiprazole [Rexulti] 3 mg PO DAILY 01/24/17 Metoprolol Tartrate [Lopressor (beta marely)] 12.5 mg PO BID #30 tab 01/26/17 insulin glargine (U- 100) 100 unit/mL subcutaneous solution 30 units SC QHS 08/14/17 fenofibrate 54 mg tablet 54 mg PO QDAY 08/15/17 pantoprazole 40 mg tablet,delayed release 40 mg PO QDAY 08/15/17 clopidogrel 75 mg tablet 75 mg PO DAILY #90 tab 09/17/17 metformin 500 mg tablet 500 mg PO BID 09/17/17 atorvastatin 40 mg tablet 80 mg PO QHS 30 Days #30 12/20/17 nitroglycerin 0.4 mg sublingual tablet 0.4 mg SUBLINGUAL Q5M PRN #25 tab 12/20/17 isosorbide mononitrate ER 60 mg tablet,extended release 24 hr 30 mg PO BID #30 tab 02/26/18 lisinopril 5 mg tablet 5 mg PO QDAY #90 tab 04/22/18 Primary Care Physician: Maral Balderrama [Primary Care Provider] - Please follow up with your Primary Care Physician in: within 1-2 weeks When: Follow-up with your parking manager within 2 weeks Disposition: Home Minutes spent on discharge:: 40 Patient Condition:: Stable Medical Necessity - Tobacco Use Smoking Status: Former smoker Tobacco Use: Non-smoker Meaningful Use Info Meaningful Use Diagnoses (Choose all that apply): None applicable Code Visit OBSV E&M: 53787 Observation care discharge
[2018-08-19] MEDS: Acetaminophen 325 MG Tablet 650 MG PO (11:49)
[2018-08-19 12:06] LABS: Bedside Glucose 113 mg/dL (70-110)
--- OUTSIDE RECORDS SUMMARY | 2018-10-21 13:08 | XMS RPT_ITS ---
:1975 Author Organization [place] Support Name Relationship Address Phone TALISHA LANDA HUT Unavailable [address] + [place] [address] SOURS, MELY Unavailable [address] + [place] [address] [employer] [employer] Unavailable [address] + [place] [address] SOURS, MELY Unavailable [address] + [place] [address] [employer] Unavailable [address] + [place] [address] SOURS, MELY Unavailable [address] + [place] [address] [employer] Unavailable [address] + [place] [address] SOURS, MELY Unavailable [address] + [place] [address] SOURS, MELY Unavailable Unavailable + [facility] [employer] Unavailable [address] + [place] [address] SOURS, MELY Unavailable [address] + [place] [address] SOURS, MELY Unavailable Unavailable + [facility] [employer] Unavailable [address] + [place] [address] SOURS, MELY Unavailable [address] + [place] [address] SOURS, MELY Unavailable Unavailable + SOURS, MELY Unavailable Unavailable + SOURS, MELY Unavailable Unavailable + SOURS, MELY Unavailable Unavailable + SOURS, MELY Unavailable Unavailable + SOURS, MELY Unavailable Unavailable Unavailable SOURS, MELY Unavailable Unavailable + [facility] Unavailable [address] + [place] [address] SOURS, MELY Unavailable [address] + [place] [address] [facility] [employer] Unavailable [address] + [place] [address] SOURS, MELY Unavailable [address] + [place] [address] [employer] Unavailable [address] + [place] [address] SOURS, MELY Unavailable [address] + [place] [address] [facility] [employer] Unavailable [address] + [place] [address] SOURS, MELY Unavailable [address] + [place] [address] [facility] [employer] Unavailable [address] + [place] [address] SOURS, MELY Unavailable [address] + [place] [address] [facility] [employer] Unavailable [address] + [place] [address] SOURS, MELY Unavailable [address] + [place] [address] [facility] [employer] Unavailable [address] + [place] [address] SOURS, MELY Unavailable [address] + [place] [address] [facility] [employer] Unavailable [address] + [place] [address] SOURS, MELY Unavailable [address] + [place] [address] [facility] [employer] Unavailable [address] + [place] [address] SOURS, MELY Unavailable [address] + [place] [address] [facility] [employer] Unavailable [address] + [place] [address] SOURS, MELY Unavailable [address] + [place] [address] [facility] [employer] Unavailable [address] + [place] [address] SOURS, MELY Unavailable [address] + [place] [address] [facility] [employer] Unavailable [address] + [place] [address] SOURS, MELY Unavailable Unavailable + SOURS, MELY Unavailable Unavailable Unavailable [facility] Unavailable [address] + [place] [address] SOURS, MELY Unavailable NA + [place], [place] Care Team Providers Name Role Phone Haider Liu Attending Unavailable Haider Liu Referring Unavailable ROYAL, MARAL Primary Care Unavailable Haider Liu Attending Unavailable ROYAL, MARAL Referring Unavailable Haider Liu Referring Unavailable ROYAL, MARAL Primary Care Unavailable FARIHA GUARDADO Attending Unavailable White, Mouna Admitting Unavailable White, Mouna Referring Unavailable ROYAL, MARAL Primary Care Unavailable Gio, Capac Consulting Unavailable Paintsil, Danevang Attending Unavailable White, Mouna Admitting Unavailable White, Mouna Attending Unavailable White, Mouna Referring Unavailable ROYAL, MARAL Primary Care Unavailable Gio, Barry Consulting Unavailable White, Mouna Consulting Unavailable White, Mouna Admitting Unavailable Gio, Capac Attending Unavailable White, Mouna Referring Unavailable ROYAL, MARAL Primary Care Unavailable Gio, Capac Consulting Unavailable Paintsil, Danevang Consulting Unavailable Haider Liu Attending Unavailable ROYAL, MARAL Primary Care Unavailable Haider Liu Attending Unavailable ROYAL, MARAL Primary Care Unavailable Gunner Lynch Attending Unavailable Gregorio Juárez Attending Unavailable ROYAL, MARAL Referring Unavailable ROYAL, MARAL Primary Care Unavailable Haider Liu Attending Unavailable ROYAL, MARAL Referring Unavailable Addison Mayers Attending Unavailable Haider Liu Attending Unavailable ROYAL, MARAL Primary Care Unavailable Haider Liu Attending Unavailable Haider Liu Referring Unavailable ROYAL, MARAL Primary Care Unavailable Haider Liu Attending Unavailable ROYAL, MARAL Primary Care Unavailable Haider Liu Attending Unavailable ROYAL, MARAL Primary Care Unavailable Haider Liu Referring Unavailable Dulce Maria Sage Attending Unavailable Linnette Calderon Attending Unavailable ROYAL, MARAL Referring Unavailable Gregorio Juárez Attending Unavailable ROYAL, MARAL Referring Unavailable ROYAL, MARAL Primary Care Unavailable Gregorio Yu Attending Unavailable Wylie, Maral S Primary Care Unavailable Wylie, Maral S Attending Unavailable Wylie, Maral S Primary Care Unavailable Wylie, Maral S Admitting Unavailable Wylie, Maral S Primary Care Unavailable Samdani Rishi Jawwad Admitting Unavailable Samdani, Rishi Jawwad Attending Unavailable Wylie, Maral S Admitting Unavailable Wylie, Maral S Attending Unavailable Wylie, Maral S Primary Care Unavailable Wylie, Maral S Attending Unavailable Wylie, Maral S Primary Care Unavailable Wylie, Maral S Admitting Unavailable Wylie, Maral S Primary Care Unavailable Jorgito, Parker Bin Admitting Unavailable Jorgito, Parker Bin Attending Unavailable Wylie, Maral S Primary Care Unavailable Rings, Jorje Admitting Unavailable Rings, Jorje Attending Unavailable Wylie, Maral S Primary Care Unavailable Ivanauskas, Saulius Admitting Unavailable Ivanauskas, Saulius Attending Unavailable Wylie, Maral S Primary Care Unavailable Tiburcio Cuba Admitting Unavailable CubaTiburcio young Attending Unavailable Wylie, Maral S Primary Care Unavailable Sokari, Telemate Admitting Unavailable Sokari, Telemate Attending Unavailable Wylie, Maral S Admitting Unavailable Wylie, Maral S Attending Unavailable Wylie, Maral S Primary Care Unavailable Wylie, Maral S Attending Unavailable Wylie, Maral S Primary Care Unavailable Wylie, Maral S Admitting Unavailable Wylie, Maral S Attending Unavailable Wylie, Maral S Primary Care Unavailable Wylie, Maral S Admitting Unavailable Wylie, Maral S Attending Unavailable Wylie, Maral S Primary Care Unavailable Annemarie Franklin Admitting Unavailable Annemarie Franklin Attending Unavailable [facility] Primary Care Unavailable [place], Luz Maria Admitting Unavailable [place], Luz Maria Attending Unavailable No Doctor Assigned, Nodr Primary Care Unavailable PRECIOUS LÓPEZ Attending Unavailable NO, PHYSICIAN Primary Care Unavailable LULU INGRAM Attending Unavailable ROYAL, MARAL S. Primary Care Unavailable PROBLEMS PROBLEMS DATE TYPE CONDITION / CODE ATTENDING STATUS SOURCE 08/12/2018 Unknown Z95.5 - Presence of Haider Liu Active [facility] angioplasty [facility] implant [facility] graft / Hospital Z95.5(ICD-10) Repository 08/12/2018 Unknown E78.5 - Haider Liu Active [facility] Hyperlipidemia, Community unspecified / Hospital E78.5(ICD-10) Repository 08/12/2018 Unknown I25.10 - Haider Liu Active [facility] Atherosclerotic [facility] heart disease of Hospital marshall coronary Repository artery without angina pectoris / I25.10(ICD-10) 08/12/2018 Unknown I24.9 - Acute Haider Liu Active [facility] ischemic heart [facility] disease, unspecified Hospital / I24.9(ICD-10) Repository 08/12/2018 Unknown R07.9 - Chest pain, [facility] Active [facility] unspecified / [facility] R07.9(ICD-10) Hospital Repository 08/12/2018 Unknown G47.33 - Obstructive [facility]ider Liu Active [facility] sleep apnea (adult) Community (pediatric) / Hospital G47.33(ICD-10) Repository 09/27/2017 Unknown I10 - Essential Haider Liu Active [facility] (primary) [facility] hypertension / Hospital I10(ICD-10) Repository 09/27/2017 Unknown E11.9 - Type 2 Haider Lui Active [facility] diabetes mellitus [facility] without Hospital complications / Repository E11.9(ICD-10) 08/27/2017 Admitting ScottiegoRENE GEORGE Active [facility] diagnosis unspecified / [facility] L01.00(ICD-10) Repository PROCEDURES PROCEDURES No Procedure Records FoundRESULTS RESULTS DISCHARGE SUMMARY Observed: 08/20/2018 Status: F Source: [place] 4:09 PM [facility] REPOSITORY [facility] Medical Records Department [address] [place] [address] Discharge Summary 08/19/18 1119 MR#: [id number] Acct: [id number] Name: HU PEREZ Rep #: [id number] : 1975 42 From: Maryam Omer MD PCP: MARAL AN Status: DIS DEANNA Y Location: [place] [address] Discharge Date and Diagnosis Date of Admission: 08/19/18 Date of Discharge: 08/19/18 - Secondary Discharge Diagnosis Chronic Problems (Last Reviewed 08/12/18 @ 13:25 by Annemarie Vázquez) Obesity (BMI 30-39.9) (Chronic) Anxiety and depression (Chronic) Schizophrenia (Chronic) Tobacco abuse (Chronic) Presence of stent in coronary artery (Chronic 08/20/17) PTCA/YOHANA to OM#1, mid RCA FFR (no PCI) 01/25/2017; PCI/YOHANA to RCA 08/20/2017; Atherosclerosis of marshall coronary artery of marshall heart without angina pectoris (Chronic) PTCA/YOHANA to OM#1, mid RCA FFR (no PCI) 01/25/2017; PCI/YOHANA to RCA 08/20/2017; HTN (hypertension) (Chronic) DM2 (diabetes mellitus, type 2) (Chronic) Hyperlipidemia (Chronic) Hospital Course and Treatment Cardiology Operations: None Procedures: Cardiac catheterization Summary of Care Provided: The patient is a 42 year old M with past medical history of hyperlipidemia, hypertension, type II DM, RENETTA on CPAP, history of CAD status post stent comes in with chest pain. Patient had had a cardiac cath done in July 2017 and there was a plan for follow-up with repeat cardiac catheterization for chronic chest pain. Was admitted to the [facility] 6 months ago underwent stress test which was negative. He had a cardiac catheterisation which was scheduled for the coming Sunday. Patient underwent cardiac catheterization which showed codominant right coronary artery with previously placed stents patent with RV marginal branch with 50% stenosis, separate LAD and left circumflex ostia, LAD with no significant stenosis and first diagonal with mild disease, left circumflex artery with no significant stenosis noted, preserved left ventricular systolic function. 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 Subjective: Patient was seen and examined. No new complains. He feels well. Had a cardiac cath done this morning. Denies any chest pain or dizziness or palpitations. - Physical Exam General: Alert, Oriented x3, Cooperative, No apparent distress HEENT: Atraumatic, PERRLA, EOMI, Normocephalic Neck: Supple, No JVD, Negative Carotid Bruits Lungs: Clear to auscultation, Normal air movement Cardiovascular: Regular rate, Regular Rhythm, Normal S1, Normal S2, No murmurs Abdomen: Bowel Sounds Present, Soft, Non Tender, Non-Distended, No Hepato-splenomegaly Extremities: No edema Skin: No rashes, No breakdown Musculoskeletal: No Tenderness to Palpation of Joints or Extremities Lymphatic: No Cervical, Supraclavicular, or Inguinal Adenopathy Neurological: Cranial nerves II-XII grossly intact Psych/Mental Status: Normal Affect, Appropriate Vital Signs Temp Pulse Resp BP Pulse Ox 97.1 F L 54 L 17 112/66 98 08/19/18 10:35 08/19/18 10:35 08/19/18 10:35 08/19/18 10:35 08/19/18 10:35 Oxygen Delivery Method Room Air Weight: 98.9 kg Body Mass Index (BMI) 37.4 Intake and Output for Last 24 Hours Intake Total Balance Laboratory Tests Past 24 Hrs WBC 12.0 H RBC 4.58 L Hgb 14.0 Hct 41.2 MCV 90.0 MCH 30.6 MCHC 34.0 RDW 13.8 RDW Differential 44.9 H WBC RBC Hgb Hct MCV POC Glucose POC Glucose 73 Discharge Diet: Low fat/ Low Cholesterol, 2000 mg Sodium Diet Discharge Activity: Return to Normal Activity Home Medications: Medications to take at Discharge Aspirin [Aspirin, Baby] 81 mg PO DAILY@0800 03/02/16 Brexpiprazole [Rexulti] 3 mg PO DAILY 01/24/17 Metoprolol Tartrate [Lopressor (beta marely)] 12.5 mg PO BID #30 tab 01/26/17 insulin glargine (U- 100) 100 unit/mL subcutaneous solution 30 units SC QHS 08/14/17 fenofibrate 54 mg tablet 54 mg PO QDAY 08/15/17 pantoprazole 40 mg tablet,delayed release 40 mg PO QDAY 08/15/17 clopidogrel 75 mg tablet 75 mg PO DAILY #90 tab 09/17/17 metformin 500 mg tablet 500 mg PO BID 09/17/17 atorvastatin 40 mg tablet 80 mg PO QHS 30 Days #30 12/20/17 nitroglycerin 0.4 mg sublingual tablet 0.4 mg SUBLINGUAL Q5M PRN #25 tab 12/20/17 isosorbide mononitrate ER 60 mg tablet,extended release 24 hr 30 mg PO BID #30 tab 02/26/18 lisinopril 5 mg tablet 5 mg PO QDAY #90 tab 04/22/18 Primary Care Physician: Maral An [Primary Care Provider] - Please follow up with your Primary Care Physician in: within 1-2 weeks When: Follow-up with your millwright instructor within 2 weeks Disposition: Home Minutes spent on discharge:: 40 Patient Condition:: Stable Medical Necessity - Tobacco Use Smoking Status: Former smoker Tobacco Use: Non-smoker Meaningful Use Info Meaningful Use Diagnoses (Choose all that apply): None applicable Code Visit OBSV E AND M: 59550 Observation care discharge 08/20/18 1609 <Electronically signed by Maryam Omer MD> Date Maryam Omer MD Cosigner Signature (if applicable): Date CC: Maryam Omer MD; MARAL AN Signed 12 LEAD ELECTROCARDIOGRAM Observed: 08/20/2018 Status: F Source: [place] 1:13 PM [facility] [place] Cardiovascular Services [address] [place] [address] 12 Lead EKG 08/19/18 0531 MR#: [id number] Acct: [id number] Name: HU PEREZ Rep #: [id number] : 1975 42 From: Barry Powers MD Attending Dr: Maryam Omer MD Status: DIS DEANNA Ordering Dr: Mouna Henry Date: 08/19/18 Location: [facility] Sex: M C Admitted: 08/19/18 Test Reason : CP ADMISSION Blood Pressure : / mmHG Vent. Rate : 057 BPM Atrial Rate : 057 BPM P-R Int : 098 ms QRS Dur : 078 ms QT Int : 432 ms P-R-T Axes : 020 004 005 degrees QTc Int : 420 ms Sinus bradycardia with short NH Otherwise normal ECG When compared with ECG of 21-AUG-2017 05:39, No significant change was found Confirmed by BARRY POWERS MD ([id number]), design editor CECILLE PEACE ([id number]) on 08/20/2018 1:12:35 PM Referred By: Mouna Henry Confirmed By:BARRY POWERS MD 08/20/18 1312 Date Barry Powers MD CC: Maryam Omer MD; Mouna Henry; MARAL AN Signed CONSULTATION Observed: 08/19/2018 Status: F Source: [place] 4:27 PM [facility] [place] [facility] Medical Records Department [address] [place] [address] Consultation 08/19/18 0714 MR#: [id number] Acct: [id number] Name: HU PEREZ Rep #: [id number] : 1975 42 From: Barry Powers MD PCP: MARAL AN Status: DIS DEANNA Y Location: [place] [address] Reason for Consult Date of Consultation: 08/19/18 Reason for Consultation: Chest pain History of Present Illness: HU PEREZ, is a 42 M who presented to the emergency room at [facility] complaining of chest discomfort. He describes this as a pressure-like sensation similar to his angina in the past. He had recently been seen in his primary millwright instructor office. As you know, the patient has a history of hypertension, hypercholesterolemia, tobacco abuse, diabetes, hyperlipidemia, and obstructive sleep apnea patient has a history of coronary artery disease status post stenting to OM #1 in December 2016 and PTCA/YOHANA to prox RCA in July 2017, hyperlipidemia, and obstructive sleep apnea. He completed cardiac rehab this past week without any difficulty. He had been admitted to [facility] approximately 6 months ago and underwent a stress test which was negative for ischemia. He has had no dizziness or diaphoresis no near syncope or syncope. He had apparently been scheduled for a cardiac catheterization this Sunday. I discussed with the ER physician at [facility] but neither the patient nor the physician that I thought it would be prudent to wait. He was therefore transferred for an urgent procedure. Past Medical History Allergies/Adverse Reactions: Allergies Penicillins Allergy (Verified 08/06/18 18:47) Unknown olanzapine [From Zyprexa] Adverse Reaction (Severe, Verified 08/06/18 18:47) aggresion/sleepiness Home Medications: Ambulatory Orders Medication Instructions Recorded Aspirin [Aspirin, Baby] 81 mg PO DAILY@0800 03/02/16 Past Medical History (Chronic Problems): Chronic Problems (Last Reviewed 08/12/18 @ 13:25 by Annemarie Vázquez) Obesity (BMI 30-39.9) (Chronic) Anxiety and depression (Chronic) Schizophrenia (Chronic) Tobacco abuse (Chronic) Presence of stent in coronary artery (Chronic 08/20/17) PTCA/YOHANA to OM#1, mid RCA FFR (no PCI) 01/25/2017; PCI/YOHANA to RCA 08/20/2017; Atherosclerosis of marshall coronary artery of marshall heart without angina pectoris (Chronic) PTCA/YOHANA to OM#1, mid RCA FFR (no PCI) 01/25/2017; PCI/YOHANA to RCA 08/20/2017; HTN (hypertension) (Chronic) DM2 (diabetes mellitus, type 2) (Chronic) Hyperlipidemia (Chronic) Surgical History: - - PCI x2, cholecystectomy, appendectomy. Psychiatric History: Anxiety, Depression, Schizophrenia - *Family History Paternal Family History: Family History (Last Reviewed 08/12/18 @ 13:25 by Annemarie Vázquez) Father Heart disease Brother CAD (coronary artery disease) History Items: Heart Disease Sibling Family History: Family History (Last Reviewed 08/12/18 @ 13:25 by Annemarie Vázquez) Father Heart disease Brother CAD (coronary artery disease) History Items: Heart Disease - Brother with history of heart disease, coronary disease. Maternal Family History: Family History (Last Reviewed 08/12/18 @ 13:25 by Annemarie Vázquez) Father Heart disease Brother CAD (coronary artery disease) History Items: - - Patient notes mother healthy with no history of heart disease, diabetes, cancer. Lives: Spouse/ Significant Other Smoking Status: Former smoker Tobacco Use: Non-smoker Alcohol: None Drugs: None Review of Systems - Review of Systems General: Denies: Fever, Night Sweats, Fatigue HEENT: Denies: Vision Change Cardiovascular: Reports: Chest Discomfort, Chest Discomfort with Exertion. Denies: Shortness of Breath, Orthopnea, PND, Peripheral Edema, Palpitations, Lightheadedness, Dizziness, Near Syncope, Syncope Respiratory: Denies: Cough, Sputum Production, Hemoptysis Gastrointestinal: Denies: Hematemesis, Hematochezia, Melena Genitourinary: Denies: Dysuria, Hematuria Muscoloskeletal: Denies: Myalgias Skin: Denies: Rash Neurological: Denies: Dizziness Psychiatric: Denies: Anxiety Endocrine: Denies: Unexplained Weight Loss Hematologic/ Lymphatic: Denies: Anemia Subjectve: Pleasant gentleman in no apparent distress Objective: Vital Signs Temp Pulse Resp BP Pulse Ox 97.8 F 55 L 18 128/72 H 97 08/19/18 05:12 08/19/18 05:15 08/19/18 05:12 08/19/18 05:12 08/19/18 05:12 Oxygen Delivery Method Room Air Weight: 218 lb 0.595 oz Body Mass Index (BMI) 37.4 Intake and Output for Last 24 Hours Intake Total Balance General: Awake, Alert, Oriented x 3 HEENT: PERRL, EOMI, Sclera Non Icteric Neck: Supple, Good ROM, No Lymph Node Enlargement Lungs: Clear to auscultation Cardiovascular: Regular Rhythm, Normal S1, Normal S2, No Murmurs, No Rubs, No Gallops Vascular: No Carotid Bruits, Normal Femoral Pulses, Normal Radial Pulses, Normal Dorsalis Pedal Pulse, Normal Posterior Tibial Pulses Abdomen: Bowel Sounds Present, Soft, Non Tender, No HSM, No Organomegaly Extremities: No Cyanosis, No Clubbing, No edema Lymphatic: No Lymph Node Enlargement Neurological: No Focal Motor or Sensory Deficit Psych/Mental Status: Appropriate 08/19/18 05:20: Sodium 141, Potassium 3.5, Chloride 109 H, Carbon Dioxide 23.0, Anion Gap 9, BUN 15, Creatinine 0.74, Est GFR (MDRD) Af Amer 150, Est GFR (MDRD) Non-Af 124, BUN/Creatinine Ratio 20.3 H, Glucose 72 L, Calcium 8.7, Magnesium 2.1, Troponin I < 0.015, Triglycerides 90, Cholesterol 110, LDL Cholesterol 62, VLDL Cholesterol 18, HDL Cholesterol 30 L 08/19/18 05:20: WBC 12.0 H, RBC 4.58 L, Hgb 14.0, Hct 41.2, MCV 90.0, MCH 30.6, MCHC 34.0, RDW 13.8, RDW Differential 44.9 H, Plt Count 204, MPV 11.3, Immature Gran % (Auto) 0.300, Neut % (Auto) 67.4, Lymph % (Auto) 23.2, Yancey % (Auto) 8.2, Eos % (Auto) 0.7, Baso % (Auto) 0.2, Absolute Neuts (auto) 8.1 H, Total Counted Not Reportable 08/19/18 05:20: PT 14.0, INR 1.1, APTT 29.4 Rhythm: EKG: Normal sinus rhythm with no acute changes Assessment/Plan 1. Chest pain * Patient has known coronary artery disease status post previous angioplasty and stenting. He has had recent stress test which are normal. However he continues to have the persistent chest discomfort. * The plan will be to perform a repeat catheterization today. If the vessels are noted to be patent he may be treated with oral nitrates or Ranexa. * If there is significant stenosis noted a discussion will be undertaken as to the best plan of action. * 2. Tobacco abuse * The patient has been counseled regarding the above. * 3. Hyperlipidemia * Will continue with aggressive lipid-lowering. * * Thank you for allowing me to participate in the care of your patient. Please don't hesitate to call if any issues arise 08/19/18 4577 <Electronically signed by Barry Powers MD> Date Brary Powers MD Cosigner Signature (if applicable): Date CC: Mouna Henry; Barry Powers MD; MARAL AN Signed BEDSIDE GLUCOSE Collected: 08/19/2018 Status: F Source: [place] 11:55 AM [facility] [place] TYPE CODE TESTS RESULT OUT OF REFERENCE UNITS RANGE LAB L501.080 70-110 mg/dL High BEDSIDE GLU 113 Result Comment: MANAGEMENT OF PATIENT CARE PER NURSING PROTOCOL Performed By: #### L501.080 #### [facility] Point of Care [address] [place] [address] DISCHARGE INSTRUCTION Observed: 08/19/2018 Status: F Source: [place] 11:19 AM [facility] [place] [facility] Medical Records Department [address] [place] [address] Instructions for Home/Discharge Instructions 08/19/18 1117 MR#: [id number] Acct: [id number] Name: UH PEREZ Rep #: [id number] : 1975 42 From: Maryam Omer MD PCP: MARAL AN Status: ADM DEANNA - Discharge Diagnoses Current Active Problems: Current Active and Chronic Problems (Last Reviewed 08/12/18 @ 13:25 by Annemarie Vázquez) Obesity (BMI 30-39.9) (Chronic) Anxiety and depression (Chronic) Schizophrenia (Chronic) Reason(s) for Visit for Discharge Instructions: Chest pain You will use the following diet at home:: Cardiac Your food should be the consistency of: Regular Your liquids should be the consistency of: Regular/Thin Discharge Activity: Return to Normal Activity Allergies/Adverse Reactions: Allergies Penicillins Allergy (Verified 08/06/18 18:47) Unknown olanzapine [From Zyprexa] Adverse Reaction (Severe, Verified 08/06/18 18:47) aggresion/sleepiness Medications to take at Discharge Aspirin [Aspirin, Baby] 81 mg PO DAILY@0800 03/02/16 Brexpiprazole [Rexulti] 3 mg PO DAILY 01/24/17 Metoprolol Tartrate [Lopressor (beta marely)] 12.5 mg PO BID #30 tab 01/26/17 insulin glargine (U- 100) 100 unit/mL subcutaneous solution 30 units SC QHS 08/14/17 fenofibrate 54 mg tablet 54 mg PO QDAY 08/15/17 pantoprazole 40 mg tablet,delayed release 40 mg PO QDAY 08/15/17 clopidogrel 75 mg tablet 75 mg PO DAILY #90 tab 09/17/17 metformin 500 mg tablet 500 mg PO BID 09/17/17 atorvastatin 40 mg tablet 80 mg PO QHS 30 Days #30 12/20/17 nitroglycerin 0.4 mg sublingual tablet 0.4 mg SUBLINGUAL Q5M PRN #25 tab 12/20/17 isosorbide mononitrate ER 60 mg tablet,extended release 24 hr 30 mg PO BID #30 tab 02/26/18 lisinopril 5 mg tablet 5 mg PO QDAY #90 tab 04/22/18 Primary Care Physician: Maral An [Primary Care Provider] - Please follow up with your Primary Care Physician in: within 1-2 weeks Test Results: Test results from this visit will be discussed in further detail at your follow-up appointment, if applicable. When: Follow-up with your millwright instructor within 2 weeks Proposed Discharge Date: 08/19/18 08/19/18 1119 <Electronically signed by Maryam Omer MD> Date Maryam Omer MD CC: Barry Powers MD; MARAL AN Signed TROPONIN-I Collected: 08/19/2018 Status: F Source: [place] 11:18 AM [facility] [place] Order Comment: 'TROP' Serial specimen #1, #2 or #3: 3 TYPE CODE TESTS RESULT OUT OF RANGE REFERENCE UNITS LAB L501.4010 <0.045 ng/mL Normal < 0.015 TROPONIN-I Result Comment: TROPONIN-I EXPECTED VALUES <0.045 Negative 0.045 - 0.590 Consistent with Cardiac Damage > OR = 0.600 Critical Value Not every elevated troponin is indicative of MO. These values should be used with clinical judgement in examining the patient's clinical picture for diagnosis. To establish a diagnosis of MO versus myocardial injury, there must be a demonstrated rise and/or fall in the troponin values, in addition to ischemic symptoms, EKG changes, new regional wall motion abnormality, and/or angiographical evidence. PLEASE NOTE: REFERENCE RANGES EDITED 17 Performed By: #### L501.4010 #### [facility] [place], [address] TROPONIN-I Collected: 08/19/2018 Status: F Source: [place] 9:34 AM [facility] [place] Order Comment: 'TROP' Serial specimen #1, #2 or #3: 2 TYPE CODE TESTS RESULT OUT OF RANGE REFERENCE UNITS LAB L501.4010 <0.045 ng/mL Normal < 0.015 TROPONIN-I Result Comment: TROPONIN-I EXPECTED VALUES <0.045 Negative 0.045 - 0.590 Consistent with Cardiac Damage > OR = 0.600 Critical Value Not every elevated troponin is indicative of MO. These values should be used with clinical judgement in examining the patient's clinical picture for diagnosis. To establish a diagnosis of MO versus myocardial injury, there must be a demonstrated rise and/or fall in the troponin values, in addition to ischemic symptoms, EKG changes, new regional wall motion abnormality, and/or angiographical evidence. PLEASE NOTE: REFERENCE RANGES EDITED 17 Performed By: #### L501.4010 #### [facility] [address] [place], [address] BEDSIDE GLUCOSE Collected: 08/19/2018 Status: F Source: [place] 6:24 AM [facility] [place] TYPE CODE TESTS RESULT OUT OF RANGE REFERENCE UNITS LAB L501.080 70-110 mg/dL Normal BEDSIDE GLU 73 Result Comment: MANAGEMENT OF PATIENT CARE PER NURSING PROTOCOL Performed By: #### L501.080 #### [facility] Point of Care [address] [place] [address] HISTORY AND PHYSICAL Observed: 08/19/2018 Status: F Source: [place] EXAM 5:33 AM [facility] [place] [facility] Medical Records Department [address] [place] [address] History and Physical 08/19/18 0528 MR#: [id number] Acct: [id number] Name: HU PEREZ Rep #: [id number] : 1975 42 From: Mouna Henry PCP: MARAL AN Status: ADM DEANNA Y Location: [place] [address] Problem List (1) Obesity (BMI 30-39.9) Status: Chronic (2) Anxiety and depression Status: Chronic (3) Schizophrenia Status: Chronic Qualifiers: Schizophrenia type: unspecified Qualified Code(s): F20.9 - Schizophrenia, unspecified (4) Tobacco abuse Status: Chronic (5) RENETTA (obstructive sleep apnea) Status: Resolved (6) Atherosclerosis of marshall coronary artery of marshall heart without angina pectoris Status: Chronic Comment: PTCA/YOHANA to OM#1, mid RCA FFR (no PCI) 01/25/2017; PCI/YOHANA to RCA 08/20/2017; (7) HTN (hypertension) Status: Chronic Qualifiers: Hypertension type: essential hypertension (8) DM2 (diabetes mellitus, type 2) Status: Chronic Qualifiers: Diabetes mellitus birthing nurse insulin use: with residential use Diabetes mellitus complication status: with unspecified complications Qualified Code(s): E11.8 - Type 2 diabetes mellitus with unspecified complications; Z79.4 - detention (current) use of insulin (9) Hyperlipidemia Status: Chronic Qualifiers: Hyperlipidemia type: pure hypercholesterolemia Qualified Code(s): E78.00 - Pure hypercholesterolemia, unspecified; E78.0 - Pure hypercholesterolemia History of Present Illness Date of Admission: 08/19/18 Chief Complaint: Chest pain The patient is a 42 M w/ PMHx: HTN, HLD, Diabetes mellitus type II, RENETTA on CPAP q HS, Former Tobacco use, GERD, CAD s/p PCI w/ OM 12/2016 and PTCA YOHANA prox RCA on 07/2017 with chronic chest pain history, seen 6 months prior at [facility] for chest pain w/ stress testing evaluation unremarkable at that time w/ recent 08/12/18 Cardiology follow- up with decision for repeat cardiac catheterization noted to have been planned for 08/12/[address] Liu; however, patient had onset of chest discomfort and presented to the OSH [facility] w/ noted episode of ongoing chest pain while at work x 6 hours, constant, pressure and squeezing in nature with radiation to the LUE with associated diaphoresis and mild dyspnea, rated 7/10 upon presentation in the OSH ED. OSH ED evaluation and work-up included VS: T 37, HR 54, BP 117/80, RR 18, 97% on RA, CBC: WBC 10.9, Hgb 14.6, Plts 240 without shift, BMP: Na 140, K 3.8, CHl 106, Bicarb 26, BUN/Cr 15/0.8, glucose 97, BNP: 45, Trop: 0.01 and repeat delta 0.01, EKG: Sinus bradycardia with no acute evidence of ischemia, CXR: Unremarkable. In the OSH ED patient administered NG paste 1 inch, ASA with improvement. OSH ED physician discussed case with Dr. Powers prior to patient transfer. Upon transition to [facility] patient continues to note he is chest pain-free. Past Medical History Past Medical History (Chronic Problems): Chronic Problems (Last Reviewed 08/12/18 @ 13:25 by Annemarie Vázquez) Obesity (BMI 30-39.9) (Chronic) Anxiety and depression (Chronic) Schizophrenia (Chronic) Tobacco abuse (Chronic) Presence of stent in coronary artery (Chronic 08/20/17) PTCA/YOHANA to OM#1, mid RCA FFR (no PCI) 01/25/2017; PCI/YOHANA to RCA 08/20/2017; Atherosclerosis of marshall coronary artery of marshall heart without angina pectoris (Chronic) PTCA/YOHANA to OM#1, mid RCA FFR (no PCI) 01/25/2017; PCI/YOHANA to RCA 08/20/2017; HTN (hypertension) (Chronic) DM2 (diabetes mellitus, type 2) (Chronic) Hyperlipidemia (Chronic) Medical History: Medical History (Last Reviewed 08/12/18 @ 13:25 by Annemarie Vázquez) Hypotension (Acute) I95.9 RENETTA (obstructive sleep apnea) (Chronic) G47.33 Chest pain (Acute) R07.9 Fatigue (Acute) R53.83 SOB (shortness of breath) (Acute) R06.02 Dyspnea (Acute) R06.00 Atherosclerosis of marshall coronary artery of marshall heart without angina pectoris (Chronic) I25.10 PTCA/YOHANA to OM#1, mid RCA FFR (no PCI) 01/25/2017; PCI/YOHANA to RCA 08/20/2017; ACS (acute coronary syndrome) (Acute) I24.9 HTN (hypertension) (Chronic) I10 DM2 (diabetes mellitus, type 2) (Chronic) E11.9 Hyperlipidemia (Chronic) E78.5 Depression F32.9 RENETTA (obstructive sleep apnea) G47.33 Schizophrenia F20.9 Hypertension I10 Depression (Inactive) F32.9 Schizophrenia (Inactive) F20.9 Allergies Penicillins Allergy (Verified 08/06/18 18:47) Unknown olanzapine [From Zyprexa] Adverse Reaction (Severe, Verified 08/06/18 18:47) aggresion/sleepiness Home Medications: Ambulatory Orders Medication Instructions Recorded Surgical History: Surgical History (Last Updated 08/12/18 @ 13:30 by Annemarie Vázquez) Presence of stent in coronary artery (Chronic) Onset Date: 08/20/17 Z95.5 PTCA/YOHANA to OM#1, mid RCA FFR (no PCI) 01/25/2017; PCI/YOHANA to RCA 08/20/2017; Surgical History: - - PCI x2, cholecystectomy, appendectomy. Psychiatric History: Anxiety, Depression, Schizophrenia Lives: Spouse/ Significant Other Smoking Status: Former smoker Tobacco Use: Non-smoker Alcohol: None Drugs: None - *Family History Paternal Family History: Family History (Last Reviewed 08/12/18 @ 13:25 by Annemarie Vázquez) Father Heart disease Brother CAD (coronary artery disease) History Items: Heart Disease Sibling Family History: Family History (Last Reviewed 08/12/18 @ 13:25 by Annemarie Vázquez) Father Heart disease Brother CAD (coronary artery disease) History Items: Heart Disease - Brother with history of heart disease, coronary disease. Maternal Family History: Family History (Last Reviewed 08/12/18 @ 13:25 by Annemarie Vázquez) Father Heart disease Brother CAD (coronary artery disease) History Items: - - Patient notes mother healthy with no history of heart disease, diabetes, cancer. Review of Systems Constitutional: Reports: Malaise, Weakness, Fatigue. Denies: Chills, Fever, Weight Change HEENT: Denies: Head Aches, Sinus Congestion, Sinus Drainage Cardiovascular: Reports: Chest Pain. Denies: Palpitations Respiratory: Reports: Shortness of Breath, Shortness of breath at rest, Shortness of breath upon exertion. Denies: Cough, Sputum production, Wheezing Gastrointestinal: Denies: Abdominal Pain, Nausea, Vomiting Genitourinary: Denies: Dysuria Musculoskeletal: Denies: Joint Pain, Joint Tenderness Skin: Denies: Rash, Wounds Neurological: Denies: Numbness, Tingling, Focal weakness Psychiatric: Reports: Anxiety, Depression. Denies: Homicidal Ideations, Suicidal Ideations Hematologic/ Lymphatic: Reports: Easy Bruising, Easy Bleeding VTE Information - Inpt Only VTE Present on Admission: No VTE Mechan Device Prophylaxis: SCD's VTE Pharm Prophylaxis ordered?: No Reason prophylaxis not ordered:: Medical Contraindication - We will hold chemoprophylaxis for planned cardiac catheterization. Subjective: Patient seated upright in PCU bed, no acute distress, very flat affect. Objective: Physical Examination: General: awake, alert, oriented x 3 and cooperative, seated upright in the PCU bed in no apparent distress. Skin: normal color, turgor, no icterus, cyanosis except noted abrasions to the lower extremities, healing, scabs present. HEENT: AT/NC, EOMI, PERRLA, only dry MM, no carotid bruits or JVD noted; thickened neck makes imaging difficult. Lungs: Breath sounds bilaterally, greater bilateral bases, mild effort, no rales, ronchi or wheezing. Heart: Regular rate and rhythm; no gallop, rub audible. Abdomen: soft, obese, NTTP, ND, normal BS, no HSM. Extremities: no cyanosis, clubbing, or edema, skin. Neurological: patient awake, alert, oriented x 3; cognitive function intact; pupils equally reactive to light and accomodation; cranial nerves II-XII grossly normal, moving all 4 extremities, no focal deficits, strength moderately globally decreased. Psychiatric: affect appears extremely flat, no acute evidence of depressive or anxiety feelings. - Physical Exam Vital Signs Temp Pulse Resp BP Pulse Ox 97.8 F 61 18 128/72 H 97 08/19/18 05:12 08/19/18 05:12 08/19/18 05:12 08/19/18 05:12 08/19/18 05:12 Oxygen Delivery Method Room Air Weight: 218 lb 0.595 oz Body Mass Index (BMI) 37.4 Assessment/Plan All Active Problems (Last Reviewed 08/12/18 @ 13:25 by Annemarie Vázquez) Hypotension (Acute) RENETTA (obstructive sleep apnea) (Resolved) Chest pain (Acute) Fatigue (Acute) SOB (shortness of breath) (Acute) Dyspnea (Acute) ACS (acute coronary syndrome) (Acute) The patient is a 42 M w/ PMHx: HTN, HLD, Diabetes mellitus type II, RENETTA on CPAP q HS, Former Tobacco use, GERD, CAD s/p PCI w/ OM 12/2016 and PTCA YOHANA prox RCA on 07/2017 with chronic chest pain history, seen 6 months prior at [facility] for chest pain w/ stress testing evaluation unremarkable at that time w/ recent 08/12/18 Cardiology follow- up with decision for repeat cardiac catheterization noted to have been planned for 08/12/[address] Liu; however, patient had onset of chest discomfort and presented to the [facility] ED w/ noted episode of ongoing chest pain while at work x 6 hours, constant, pressure and squeezing in nature with radiation to the LUE with associated diaphoresis and mild dyspnea, rated 7/10 upon presentation in the OSH ED. (1) Chest Pain: OSH ED evaluation and work-up included VS: T 37, HR 54, BP 117/80, RR 18, 97% on RA, CBC: WBC 10.9, Hgb 14.6, Plts 240 without shift, BMP: Na 140, K 3.8, CHl 106, Bicarb 26, BUN/Cr 15/0.8, glucose 97, BNP: 45, Trop: 0.01 and repeat delta 0.01, EKG: Sinus bradycardia with no acute evidence of ischemia, CXR: Unremarkable. Will admit to PCU, place on a monitored bed to assure no acute myocardial infarction with serial cardiac enzymes and EKGs. ASA, NG, morphine. Cardiology consulted, planned cardiac catheterization, unclear if in AM secondary to holiday however to be cautious will maintain NPO status on IVFs. (2) CAD: s/p PCI w/ OM 12/2016 and PTCA YOHANA prox RCA on 07/2017, maintain on asa, plavix, metoprolol, statin therapies. (3) Diabetes mellitus type II: Hold oral home regimen, continue home insulin regimen, NPO status, accu checks w/ ISS, nutrition consultation for education and teaching. (4) Anxiety and Depression/Bipolar Disorder/Schizophrenia: Continue home rexulti regimen. (5) Hypertension: Continue home regimen including lisinopril, metoprolol, PRN hydralazine. (6) Hyperlipidemia: Continue home statin regimen. AM FLP. (7) History of Tobacco use: Encouraged continued cessation. (8) RENETTA: CPAP q HS. (9) GERD: PPI. (10) DVT Prophylaxis: SCDs, hold chemoprophylaxis given planned cardiac catheterization. Code Visit OBSV E AND M: 29190 Initial observation care L3 08/19/18 0533 <Electronically signed by Mouna Henry > Date Mouna Henry Cosigner Signature: Date (if applicable) CC: Mouna Henry; MARAL ROYAL [place] BASIC METABOLIC Collected: 08/19/2018 Status: F Source: [place] PROFILE (BMP) 5:20 AM [facility] [place] Order Comment: 'TROP' Serial specimen #1, #2 or #3: 1 TYPE CODE TESTS RESULT OUT OF RANGE REFERENCE UNITS LAB L501.0100 74-106 mg/dL Low GLU 72 Result Comment: Please note revised GLUCOSE reference range effective 2017. LAB L501.1000 7-18 mg/dL Normal BUN 15 LAB L501.1100 0.70-1.30 mg/dL Normal CREAT,SERUM 0.74 Result Comment: The validity of the calculated GFR AND GFRAA in patients over 70 years has not been determined. Clinical correlation is essential. LAB L501.1110 >60 mL/min Normal EST GFR 124 Result Comment: Non- GFR Calc LAB L501.1115 >60 mL/min Normal EST GFR - AA 150 Result Comment: GFR Calc LAB L501.1255 ml/min Normal Estimated CRCL 110.00 LAB L501.1300 10-20 RATIO High BUN/CRE 20.3 LAB L501.2200 8.5-10 mg/dL .1 CA Normal 8.7 LAB L501.5300 136-14 mmol/L 5 NA Normal 141 LAB L501.5600 3.5-5. mmol/L 1 K Normal 3.5 LAB L501.5900 98-107 mmol/L High CL 109 LAB L501.6100 21.0-3 mmol/L 2.0 CO2 Normal 23.0 LAB L501.6200 5-15 GAP Normal 9 Performed By: #### L500.2500, L500.4100, L501.4010, L501.5200 #### [facility] Mychal Hussein [place]. [place], [place], [address] LIPID PROFILE Collected: 08/19/2018 Status: F Source: [place] 5:20 AM [facility] [place] [facility] Order Comment: 'TROP' Serial specimen #1, #2 or #3: 1 TYPE CODE TESTS RESULT OUT OF RANGE REFERENCE UNITS LAB L501.4900 200 mg/dL Normal CHOL 110 Result Comment: <200 mg/dL Desirable 200-240 mg/dL Borderline >240 mg/dL High Risk LAB L501.5000 mg/dL Normal TRIG 90 Result Comment: The drugs N-Acetylcysteine and Metamizole may falsely depress this assay. Serum Triglycerides Reference Interval Normal <150 mg/dL Borderline high 150 - 199 mg/dL High 200 - 499 mg/dL Very High > or = 500 mg/dL LAB L501.6400 mg/dL Low HDL 30 Result Comment: The drugs N-Acetylcysteine and Metamizole may falsely depress this assay. Reference Range HDL <40 mg/dL Low HDL Cholesterol HDL >or= 60 mg/dL High HDL Cholesterol LAB L501.6500 0-130 mg/dL Normal LDL 62 LAB L501.6600 5-40 mg/dL Normal VLDL 18 Performed By: #### L500.2500, L500.4100, L501.4010, L501.5200 #### [facility] [address] [place], [place], [address] TROPONIN-I Collected: 08/19/2018 Status: F Source: [place] 5:20 AM [facility] [place] Order Comment: 'TROP' Serial specimen #1, #2 or #3: 1 TYPE CODE TESTS RESULT OUT OF RANGE REFERENCE UNITS LAB L501.4010 <0.045 ng/mL Normal < 0.015 TROPONIN-I Result Comment: TROPONIN-I EXPECTED VALUES <0.045 Negative 0.045 - 0.590 Consistent with Cardiac Damage > OR = 0.600 Critical Value Not every elevated troponin is indicative of MO. These values should be used with clinical judgement in examining the patient's clinical picture for diagnosis. To establish a diagnosis of MO versus myocardial injury, there must be a demonstrated rise and/or fall in the troponin values, in addition to ischemic symptoms, EKG changes, new regional wall motion abnormality, and/or angiographical evidence. PLEASE NOTE: REFERENCE RANGES EDITED 17 Performed By: #### L500.2500, L500.4100, L501.4010, L501.5200 #### [facility] [address] [place], [address] MAGNESIUM Collected: 08/19/2018 Status: F Source: [place] 5:20 AM [facility] [place] Order Comment: 'TROP' Serial specimen #1, #2 or #3: 1 TYPE CODE TESTS RESULT OUT OF RANGE REFERENCE UNITS LAB L501.5200 1.6-2.6 mg/dL Normal MG 2.1 Performed By: #### L500.2500, L500.4100, L501.4010, L501.5200 #### [facility] [address]. [place], [place], [address] CBC W/DIFF, AUTOMATED Collected: 08/19/2018 Status: F Source: [place] 5:20 AM [facility] [place] [facility] TYPE CODE TESTS RESULT OUT OF RANGE REFERENCE UNITS LAB L100.1000 4.4-11.0 K/mm3 High WBC 12.0 LAB L100.1200 4.6-6.2 M/mm3 Low RBC 4.58 LAB L100.1300 13.0-16.5 g/dl Normal HGB 14.0 LAB L100.1400 40-54 % Normal HCT 41.2 LAB L100.1500 80-94 fL Normal MCV 90.0 LAB L100.1600 27.0-32.0 pg Normal MCH 30.6 LAB L100.1700 32-36 g/gl Normal MCHC 34.0 LAB L100.1810 11.6-14.6 % Normal RDW CV 13.8 LAB L100.1820 35.1-43.9 fl High RDW SD 44.9 LAB L100.1900 150-450 K/mm3 Normal PLT 204 LAB L100.2000 6.2-12.0 fl Normal MPV 11.3 LAB L100.2100 47-70 % Normal NEUT% 67.4 LAB L100.2200 19-41 % Normal LY% 23.2 LAB L100.2300 0-10 % Normal MONO% 8.2 LAB L100.2400 0-5 % Normal EO% 0.7 LAB L100.2500 0-1 % Normal BASO% 0.2 LAB L100.2550 0.0-0.9 % Normal IM GRAN % 0.300 Result Comment: IG% - Immature Granulocytes (promyelocytes, myelocytes and metamyelocytes) > 1% indicates that a LEFT SHIFT is Present. LAB L100.2620 2.0-7.7 X10 3/uL High Absolute Neut 8.1 LAB L100.2720 0.83-4.51 X10 3/ul Normal Absolute Lymph 2.79 Performed By: #### L100.0100 #### [facility] [address] [place], [address] PROTHROMBIN TIME W/INR Collected: 08/19/2018 Status: F Source: [place] 5:20 AM [facility] [place] [facility] TYPE CODE TESTS RESULT OUT OF RANGE REFERENCE UNITS LAB L300.4150 11.7-14.9 SECONDS Normal PROTIME 14.0 LAB L300.4200 Normal INR 1.1 Performed By: #### L300.3900, L300.4310 #### [facility] [address] [place], [address] PARTIAL THROMBOPLAST Collected: 08/19/2018 Status: F Source: [facility] 5:20 AM [facility] [place] [facility] TYPE CODE TESTS RESULT OUT OF RANGE REFERENCE UNITS LAB L300.4310 24.1-36.2 Seconds Normal PTT 29.4 Performed By: #### L300.3900, L300.4310 #### [facility] [address] [place], [address] TROPONIN-I Collected: 08/19/2018 Status: F Source: [place] 2:39 AM [facility] REPOSITORY TYPE CODE TESTS RESULT OUT OF RANGE REFERENCE UNITS LAB 83152438(LO .00-.03 ng/mL INC) Normal <.01 Troponin-I Performed By: #### [id number] #### ALEX Venegas [address] [place] [address] XR CHEST AP PORTABLE Observed: 08/18/2018 Status: F Source: [place] 9:25 PM [facility] REPOSITORY Exam Date/Time: 08/18/2018 21:32 EST Reason for Exam: Chest pain Report STUDY: XR Chest AP Portable; 08/18/2018 9:32 pm INDICATION: Chest pain. COMPARISON: Chest radiograph 02/26/2018 ACCESSION NUMBER(S): [id number] ORDERING CLINICIAN: Luz Maria Henley FINDINGS: CARDIOMEDIASTINAL SILHOUETTE: Cardiac silhouette is enlarged, stable from prior imaging. LUNGS: No pulmonary consolidation, pleural effusion or pneumothorax. ABDOMEN: No remarkable upper abdominal findings. BONES: No acute osseous abnormality. IMPRESSION: No radiographic evidence of acute cardiopulmonary pathology. Stable enlargement of the cardiac silhouette. FINAL REPORT Dictated: 08/18/2018 9:47 pm Pablo Larsen MD Signed (Electronic Signature): 08/18/2018 9:47 pm Signed by: Pablo Larsen MD Technologist: CEC CBC W/ AUTO DIFF Collected: 08/18/2018 Status: F Source: [place] 9:11 PM [facility] REPOSITORY TYPE CODE TESTS RESULT OUT OF RANGE REFERENCE UNITS LAB [id number](L 3.6-11.0 E3/mcL OINC) Normal WBC 10.9 LAB 23823665(L 3.90-6.10 E6/mcL OINC) Normal RBC 4.79 LAB 41748311(L 13.5-18.0 G/DL OINC) Normal Hgb 14.6 LAB 81226398(L 42.0-52.0 % OINC) Normal Hct 42.8 LAB 76556723(L 11.5-14.5 % OINC) Normal RDW 14.3 LAB 45521962(L 27.0-31.0 pg OINC) Normal MCH 30.4 LAB 96282956(L 33.0-37.0 G/DL OINC) Normal MCHC 34.1 LAB 23207389(L 78.0-100.0 fL OINC) Normal MCV 89.3 LAB 14639434(L 7.4-11.0 fL OINC) Normal MPV 9.2 LAB 76003971(L 130-400 E3/mcL OINC) Normal Platelet 240 Performed By: #### [id number] #### [facility]LEX [facility] [place] [address] AUTO DIFF Collected: 08/18/2018 Status: F Source: [place] 9:11 PM [facility] REPOSITORY Order Comment: Order Added by Discern Expert. TYPE CODE TESTS RESULT OUT OF RANGE REFERENCE UNITS LAB 32034498(L 37.0-75.0 % OINC) Normal Neutro Auto 69.8 LAB 24919513(L 20.0-55.0 % OINC) Normal Lymph Auto 22.7 LAB 50501876(L 0.0-10.0 % OINC) Normal Yancey Auto 5.9 LAB 50662722(L 0.0-11.0 % OINC) Normal Eos Auto 0.4 LAB 80129999(L 0.0-2.0 % OINC) Normal Basophil Auto 1.2 LAB 86184317(L 1.4-6.5 E3/mcL OINC) High Neutro 7.6 Absolute LAB 01310081(L 1.2-3.4 E3/mcL OINC) Normal Lymph Absolute 2.5 LAB 60932806(L 0.0-0.7 E3/mcL OINC) Normal Yancey Absolute 0.6 LAB 10171438(L 0.0-0.7 E3/mcL OINC) Normal Eos Absolute 0.0 LAB 34941200(L 0.0-0.2 E3/mcL OINC) Normal Basophil 0.1 Absolute Performed By: #### [id number] #### [facility] [place] [id number] D-DIMER Collected: 08/18/2018 Status: F Source: [place] 9:11 [facility] REPOSITORY TYPE CODE TESTS RESULT OUT OF RANGE REFERENCE UNITS LAB [id number](LO <=500.00 ng/mL INC) Normal D-Dimer 297.00 Result Comment: When the concentration of D-dimer is below the retail pos specialist's cutoff, 500 ng/mL FEU, it may be possible to exclude the diagnosis of DVT and PE in conjunction with a clinical pretest probability assessment. Performed By: #### [id number] #### ALEX [facility] [address] [place] [address] PT Collected: 08/18/2018 Status: F Source: [place] 9:11 [facility] REPOSITORY TYPE CODE TESTS RESULT OUT OF RANGE REFERENCE UNITS LAB 31985858(LO 0.9-1.1 INC) Normal INR 1.1 Result Comment: INR Recommended Therapeutic ranges: Prophylaxis/treatment of DVT and PE..........2.0-3.0 Prevention of systemic embolism.................2.0-3.0 Mechanical prosthetic values........................2.5-3.5 CRITICAL VALUE.........................................> 4.0 NOTE: New methodology started 08/12/2018 LAB [id number](LOINC) 9.7-12.7 second(s) Normal PT 12.2 Result Comment: NOTE: New reference range established on 08/12/2018 due to change in methodology. Performed By: #### [id number] #### ALEX [facility] [address] [place] [address] PTT Collected: 08/18/2018 Status: F Source: [place] 9:11 PM [facility] REPOSITORY TYPE CODE TESTS RESULT OUT OF RANGE REFERENCE UNITS LAB 29531635(LO 28-38 second(s) INC) Normal PTT 36 Result Comment: NOTE:New reference range established 08/12/2018 due to change in methodology. Performed By: #### [id number] #### ALEX [facility] [place] [address] TROPONIN-I Collected: 08/18/2018 Status: F Source: [place] 9:11 PM [facility] REPOSITORY TYPE CODE TESTS RESULT OUT OF RANGE REFERENCE UNITS LAB [id number](LO .00-.03 ng/mL INC) Normal <.01 Troponin-I Performed By: #### [id number] #### ALEX [facility] [address] [place] [address] BMP Collected: 08/18/2018 Status: F Source: [place] 9:11 PM [facility] REPOSITORY TYPE CODE TESTS RESULT OUT OF RANGE REFERENCE UNITS LAB 00717669(L 70-99 mg/dL OINC) Glucose Normal Lvl 97 LAB 46299786(L 6-23 mg/dL OINC) BUN Normal 15 LAB [id number](LO 0.5-1.3 mg/dL INC) Normal Creatinine 0.8 LAB [id number](L 5.4-30.0 ratio OINC) Normal BUN/Creat Ratio 18.8 LAB [id number](L 8.6-10.3 mg/dL OINC) Calcium Normal Lvl 9.6 LAB 44166752(L 136-145 mEq/L OINC) Sodium Normal Lvl 140 LAB [id number](L 3.5-5.3 mEq/L OINC) Normal Potassium Lvl 3.8 LAB 75737292(L 98-107 mEq/L OINC) Chloride Normal 106 LAB [id number](L 21.0-32.0 mEq/L OINC) CO2 Normal 26.0 LAB [id number](L 10-20 mEq/L OINC) AGAP Normal 12 Performed By: #### [id number] #### ALEX RemChem [facility] [place] [address] EGFR Collected: 08/18/2018 Status: F Source: [place] 9:11 [facility] REPOSITORY Order Comment: Order added by Discern Expert. TYPE CODE TESTS RESULT OUT OF RANGE REFERENCE UNITS LAB 69274500(LO mL/min/1.73 INC) m2 Normal eGFR >60 LAB 67783723(LO mL/min/1.73 INC) m2 Normal eGFR AA >60 Performed By: #### [id number] #### ALEX RemKonaWare [facility] [place] [address] MAGNESIUM Collected: 08/18/2018 Status: F Source: [place] 9:11 [facility] REPOSITORY TYPE CODE TESTS RESULT OUT OF RANGE REFERENCE UNITS LAB [id number](L 1.6-2.4 mg/dL OINC) Normal Magnesium 2.0 Performed By: #### [id number] #### ALEX RemKonaWare [facility] [place] [address] BNP. Collected: 08/18/2018 Status: F Source: [place] 9:11 [facility] REPOSITORY TYPE CODE TESTS RESULT OUT OF RANGE REFERENCE UNITS LAB CD:[id number] <=500 pg/mL 67(LOINC) Normal BNP. 45 Result Comment: Notice: Effective 01/10/2017 the methodology for BNP testing has changed. BNP values less than or equal to 100 pg/mL is considered normal for patients without CHF.The decision threshold was determined by the 95% confidence limit of BNP concentration in the non-CHF population age 55 and older.It is recommended that a new baseline value be established using the new method if monitoring patient's BNP level. Performed By: #### [id number] #### ALEX Datalink [facility] [place] [id number] CARDIOLOGY VISIT Observed: 08/12/2018 Status: F Source: [place] REPORT 1:46 PM [facility] [place] [facility] [address] [place] [address] OFFICE VISIT Date of Service: 08/12/18 MR#: [id number] Acct: [id number] Name: HU PEREZ Rep #: [id number] : 1975 Provider: Haider Liu MD Age/Sex: 42/M Location: [facility] [place] Status: Signed HPI HPI Chief Complaint: Routine f/u Details: Details: HU PEREZ, is a 42 M who presents to the office today for a cardiovascular outpatient follow-up regarding previous emergency department visit. Patient has a history of hypertension, hypercholesterolemia, tobacco abuse, diabetes, hyperlipidemia, and obstructive sleep apnea patient has a history of coronary artery disease status post stenting to OM #1 in December 2016 and PTCA/YHOANA to prox RCA in July 2017, hyperlipidemia, and obstructive sleep apnea. He completed cardiac rehab this past week without any difficulty. Unfortunately he resumed smoking. He was at [facility] about 6 months ago, for chest pain. He was admitted for observation. He states that he underwent a non-walking [place] stress test which was found to be negative for inducible ischemia and normal LV function. Patient underwent pulmonary function test on 03/27/17 with the following results: Mild restrictive ventilatory defect with a symmetric reduction diffusion capacity in a pattern consistent with interstitial lung disease. 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 Since our last visit, the patient has participated in softball and now basketball, and occasionally gets exertional chest pain symptoms. He has successfully quit smoking, and is taking and tolerating his medicines well. In our office today's blood pressure is 80/50, pulse is 64 and regular. His physical exam is as below. His lipids as of 06/06/17 show an LDL of 77 and HDL of 30. Repeat lipids are pending. 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 Required: No Accompanied by: Is patient in pain?: No Allergies Penicillins Allergy (Verified 08/06/18 18:47) Unknown olanzapine [From Zyprexa] Adverse Reaction (Severe, Verified 08/06/18 18:47) aggresion/sleepiness Medications Aspirin [Aspirin, Baby] 81 mg PO DAILY@0800 03/02/16 [History Confirmed 08/06/18] Brexpiprazole [Rexulti] 3 mg PO DAILY 01/24/17 [History Confirmed 08/06/18] Metoprolol Tartrate [Lopressor (beta marely)] 12.5 mg PO BID #30 tab 01/26/17 [Rx Confirmed 08/06/18] insulin glargine (U- 100) 100 unit/mL subcutaneous solution 30 units SC QHS 08/14/17 [History Confirmed 08/06/18] fenofibrate 54 mg tablet 54 mg PO QDAY 08/15/17 [History Confirmed 08/06/18] pantoprazole 40 mg tablet,delayed release 40 mg PO QDAY 08/15/17 [History Confirmed 08/06/18] clopidogrel 75 mg tablet 75 mg PO DAILY #90 tab 09/17/17 [Rx Confirmed 08/06/18] metformin 500 mg tablet 500 mg PO BID 09/17/17 [History Confirmed 08/06/18] atorvastatin 40 mg tablet PO 30 Days #30 12/20/17 [History Confirmed 08/06/18] nitroglycerin 0.4 mg sublingual tablet 0.4 mg SUBLINGUAL Q5M PRN #25 tab 12/20/17 [Rx Confirmed 08/06/18] isosorbide mononitrate ER 60 mg tablet,extended release 24 hr 30 mg PO BID #30 tab 02/26/18 [Rx Confirmed 08/06/18] lisinopril 5 mg tablet 5 mg PO QDAY #90 tab 04/22/18 [Rx Confirmed 08/06/18] [facility] Medical History Hypotension (Acute) RENETTA (obstructive sleep apnea) (Chronic) Chest pain (Acute) Fatigue (Acute) SOB (shortness of breath) (Acute) Dyspnea (Acute) Atherosclerosis of marshall coronary artery of marshall heart without angina pectoris (Chronic) ACS (acute coronary syndrome) (Acute) HTN (hypertension) (Chronic) DM2 (diabetes mellitus, type 2) (Chronic) Hyperlipidemia (Chronic) Depression (Acute) RENETTA (obstructive sleep apnea) (Acute) Schizophrenia (Acute) Hypertension (Chronic) Depression (Inactive) Schizophrenia (Inactive) Surgical History Presence of stent in coronary artery (Chronic 01/25/17) Family History Father Heart disease Brother CAD (coronary artery disease) Social History Smoking Status: Current some day smoker alcohol intake: never substance use type: does not use caffeine: Yes Type: carbonated beverages what type of physical activity do you participate in: walking frequency: 3-4 times per week duration: 15-30 minutes/day seatbelt use: always do you feel safe at home: Yes ROS Const Const: Positive for other (Has been taking nitro for chest pain, last week had to take two.); negative for fatigue, weakness, body ache, fever(s), headache(s), chills, frequent falls, night sweats, daytime sleepiness, difficulty sleeping, excessive sweating, weight gain, weight loss, increased appetite, poor appetite or anorexia Eyes Eyes: Negative for blind spots, loss of peripheral vision, transient loss of vision, blurry vision, change in vision, double vision, floaters, tunnel vision or other ENT ENT: Negative for headache(s), dizziness, hearing loss, tinnitus, Nosebleed/epistaxis, balance problems, post nasal drip, lip swelling, tongue swelling, bleeding gums, hoarseness, neck pain, dry mouth or other Cardio Chest Pain: Yes (Feels like when I had my stents put in.) Frequency: other (about twice a week) Onset: exercise Location: other (nitro relieves it in about 5 to 10 minutes.), left chest (left sternal border) Duration: minutes Relieving: other (nitro or rest) Palpitations: No Edema: None Muscle aches with walking: None Resp Respiratory: Negative for SOB with activity, SOB at rest, SOB orthopnea\SOB lying down, Coughing up blood/hemoptysis, chest congestion, pain on inspiration, snoring, stridor, wheezing, crackles, paroxysmal nocturnal dyspnea or other GI GI: Negative nausea, vomiting, heartburn, constipation, belching, bloating, cramping, vomiting blood/hematemesis, bright, red blood in stools, black,tarry stools, loose stools, Difficulty Swallowing or other : Negative for hematuria, frequent nighttime urination/ nocturia, erectile dysfunction or abnormal vaginal bleeding Musc Musc: Negative for balance problems, muscle aches/ myalgia, muscle weakness or joint pain Skin Skin: Negative redness, non-healing lesions, rash, unusual bruising, skin ulcer, wounds, jaundice or other Neuro Neuro: Negative for weakness, headache(s), frequent falls, blurry vision, double vision, dizziness, lightheadedness, near syncope, syncope, orthostatic symptoms, confusion, memory loss, restless legs, vertigo, seizures, lack of coordination or other Brent Hematologic/Lymphatic: Negative for easy bleeding, easy bruising, enlarged lymph nodes or other Endo Endo: Negative for fatigue, excessive sweating, cold intolerance, heat intolerance, flushing, increased thirst/drinking, increased hunger, hair loss, hair growth or other Psych Psych: Negative for anxiety, depression, thoughts of harming anyone, thoughts of harming yourself, visual hallucinations, panic attacks or audible hallucinations Allergy Allergy/Immunology: Negative for lip swelling, Negative for tongue swelling, Negative for rash, Negative for throat swelling, Negative for hives Cardiology Exam Const Appearance: cooperative, healthy appearing and no acute distress Nutritional Appearance: well nourished Orientation: alert, oriented x3 and oriented to person Head Head: normal to inspection, atraumatic and normocephalic Nose: external nose normal Face and Sinus: face symmetric Mouth: oral mucosae normal Eyes General: appearance normal, both eyes and all related structures Eyelids: eyelids normal Conjunctivae: conjunctivae normal Pupils: PERRL and normal by confrontation EOM: EOM intact bilaterally Neck Neck: normal visual inspection and full ROM Carotids: normal carotid upstroke Chest Chest inspection: normal inspection of the chest Auscultation: Bilateral: Clear to Auscultation Cardio Palpation: normal PMI Rate: regular rate Rhythm: regular rhythm Heart sounds: S1 normal and S2 normal GI GI: normal to inspection, no hepatosplenomegaly and bowel sounds present Neuro General: alert, oriented x3, awake, CN's II-XI intact bilaterally and moves all extremities Skin Skin: no rashes or lesions noted Extremities Pulses: Normal: Right Femoral Pulse, Left Femoral Pulse, Right Dorsalis Pedis Pulse, Left Dorsalis Pedis Pulse, Right Posterior Tibial Pulse, Left Posterior Tibial Pulse, Right Radial Pulse, Left Radial Pulse Lower Extremity Edema: None: Bilateral Psych Psychological: normal affect Assessment AND Plan 1. Atherosclerosis of marshall coronary artery of marshall heart without angina pectoris I25.10 PTCA/YOHANA to OM#1, mid RCA FFR (no PCI) 01/25/2017; PCI/YOHANA to RCA 08/20/2017; Plan 1. Coronary artery disease: Patient continues to have episodes of exertional anginal symptoms, and is a little bit over one year from his most recent stenting of his RCA. In addition he has had previous stenting of his obtuse marginal which was found to be widely patent at his last catheterization in July 2017. Given the age of the patient's most recent stent, recurrent anginal symptoms, and despite negative stress test in November 2017 at [facility], I recommend the patient undergo repeat catheterization to assess his coronary anatomy in particular he has recent RCA stent. In the meantime he will continue his baby aspirin, Plavix, Imdur, lisinopril and metoprolol. If his stents are widely patent, we may consider decreasing his Imdur to 30 mg p.o. twice daily given his hypotension. Orders Orders: 2. Hyperlipidemia, unspecified hyperlipidemia type E78.5 Plan 2. Hyperlipidemia: Awaiting repeat lipid profile. Continue Lipitor and fenofibrate. Orders Orders: 3. RENETTA (obstructive sleep apnea) G47.33 Plan 3. Obstructive sleep apnea: Continue CPAP therapy. 4. Return office in 6 months. This note was generated using a voice recognition system and there may be incorrect words, spelling or punctuation that were not noted when reviewing the office note prior to saving. Plan Detail Other Orders Orders: Follow Up +6M (Noe) Coding Level of Care Code Off vis,est,level 3 Diagnoses Atherosclerosis of marshall coronary artery of marshall heart without angina pectoris I25.10 Hyperlipidemia, unspecified hyperlipidemia type E78.5 Hyperlipidemia type: unspecified RENETTA (obstructive sleep apnea) G47.33 Coding Level of Care Code Off vis,est,level 3 Diagnoses Atherosclerosis of marshall coronary artery of marshall heart without angina pectoris I25.10 Hyperlipidemia, unspecified hyperlipidemia type E78.5 Hyperlipidemia type: unspecified RENETTA (obstructive sleep apnea) G47.33 Supplemental Info Supplemental Information Diagnostics Electrocardiogram 09/17/17 08/12/18 3503 <Electronically signed by Haider Liu MD> Date Haider Liu MD [facility] Signature: Date (if applicable) CC: MARAL AN 12 LEAD EKG PERFORMED Observed: 08/12/2018 Status: F Source: [place] BY [facility] [place] 1:42 PM [facility] [place] [address] [place] [address] 12 Lead EKG performed by [facility] [place] [facility] 08/12/18 1338 MR#: [id number] Acct: [id number] Name: HU PEREZ Rep #: [id number] : 1975 42 From: Haider Liu MD Attending Dr: Haider Liu MD Status: DEP [facility] Ordering Dr: Haider Liu MD Date: 08/12/18 Location: [facility] [place] Sex: M C Admitted: [facility] [place]/12 Lead EKG performed by [facility] [place] Sinus Bradycardia - Negative precordial T-waves. WITHIN NORMAL LIMITS 08/14/18 0846 <Electronically signed by Haider Liu MD> Date Haider Liu MD CC: MARAL AN Date Dictated: 08/12/181337 Date Transcribed: 08/12/181337 Research Scholar: DN Signed XR KNEE COMPLETE Observed: 07/30/2018 Status: F Source: [place] RIGHT 7:26 PM [facility] REPOSITORY Exam Date/Time: 07/30/2018 19:34 EST Reason for Exam: Pain, Traumatic Report STUDY: XR Knee Complete Right; 07/30/2018 7:34 pm INDICATION: Pain, Traumatic. COMPARISON: None. ACCESSION NUMBER(S): [id number] ORDERING CLINICIAN: Annemarie Franklin FINDINGS: There is no fracture, dislocation, joint space narrowing, or effusion. There is normal bony mineralization. There is no significant soft tissue swelling. IMPRESSION: No fracture. FINAL REPORT Dictated: 07/30/2018 7:37 pm Arnaldo Liang MD Signed (Electronic Signature): 07/30/2018 7:37 pm Signed by: Arnaldo Liang MD Technologist: MAGDY XR SPINE LUMBOSACRAL 2 Observed: 04/10/2018 Status: F Source: [place] OR 3 VIEWS 12:50 PM [facility] REPOSITORY Exam Date/Time: 04/10/2018 13:00 EDT Reason for Exam: Back pain Report STUDY: XR Spine Lumbosacral 2 or 3 Views; 04/10/2018 1:00 pm INDICATION: Back pain. COMPARISON: None. ACCESSION NUMBER(S): [id number] ORDERING CLINICIAN: Maral An FINDINGS: 3 views of the lumbar spine including AP, lateral and lateral cone-down views were obtained. There is no acute fracture identified. There is mild retrolisthesis of L4 on L5. Minimal disc space narrowing and tiny marginal osteophytes are seen at the L4-5 level. Mild discogenic degenerative changes are seen in the visualized lower thoracic spine. Mild facet degenerative changes are seen in the lower lumbar spine. IMPRESSION: 1. No evidence of acute fracture. 2. Degenerative changes throughout the lumbar spine, as described above. FINAL REPORT Dictated: 04/11/2018 9:38 am Mariano Cotter MD Signed (Electronic Signature): 04/11/2018 9:38 am Signed by: Mariano Cotter MD Technologist: JANET COVARRUBIAS Collected: 04/05/2018 Status: F Source: [place] 10:54 AM [facility] REPOSITORY TYPE CODE TESTS RESULT OUT OF RANGE REFERENCE UNITS LAB 55424528(L 70-99 mg/dL OINC) High Glucose Lvl 139 LAB 16829190(L 8.4-10.2 mg/dL OINC) Calcium Normal Lvl 9.3 LAB 56175700(L 136-145 mEq/L OINC) Sodium Normal Lvl 139 LAB 97065869(L 3.5-5.1 mEq/L OINC) Normal Potassium Lvl 4.0 LAB 63691744(L 98-107 mEq/L OINC) Chloride Normal 104 LAB 92883825(L 24.0-30.0 mEq/L OINC) CO2 Normal 25.2 LAB 72526393(L 7-18 mg/dL OINC) High BUN 21 LAB 6258882(LO 0.6-1.3 mg/dL INC) Normal Creatinine 1.0 LAB 79522547(L 5.4-30.0 ratio OINC) Normal BUN/Creat Ratio 21.0 Performed By: #### [id number] #### ALEX AnetteSnapfish[address] [place] [id number] EGFR Collected: 04/05/2018 Status: F Source: [place] 10:54 AM [facility] REPOSITORY Order Comment: Order added by Discern Expert. TYPE CODE TESTS RESULT OUT OF RANGE REFERENCE UNITS LAB 19338986(LO mL/min/1.73 INC) m2 Normal eGFR >60 LAB 60069659(LO mL/min/1.73 INC) m2 Normal eGFR AA >60 Performed By: #### [id number] #### ALEX [employer] [place], [place] [id number] LIPID PROFILE Collected: 04/05/2018 Status: F Source: [place] 10:54 AM [facility] REPOSITORY TYPE CODE TESTS RESULT OUT OF RANGE REFERENCE UNITS LAB 13970147(LO 50-200 mg/dL INC) High Chol 215 Result Comment: TOTAL CHOLEESTEROL: <200 NORMAL 200 - 239 BORDERLINE HIGH >240 HIGH LAB 70646862(LOINC) >=41 mg/dL Low HDL 28 LAB 90906445(LOINC) 0-130 mg/dL High LDL 133 Result Comment: <100 OPTIMAL 100-129 NEAR / ABOVE OPTIMAL 130-159 BORDERLINE HIGH 160-189 HIGH >190 VERY HIGH CALC LDL NOT VALID WHEN TRIGLYCERIDE IS >400 MG/DL LAB 76325327(LOINC) 35-150 mg/dL High Trig 270 Result Comment: <150 NORMAL 150-199 BORDERLINE HIGH 200-499 HIGH >500 VERY HIGH LAB 19369984(LOINC) Normal VLDL 54 Performed By: #### [id number] #### ALEX [employer]Kona[employer]are [facility] [place] [id number] HGBA1C Collected: 04/05/2018 Status: F Source: [place] 10:54 AM [facility] REPOSITORY TYPE CODE TESTS RESULT OUT OF REFERENCE UNITS RANGE LAB 091440322( 4.0-6.3 % LOINC) High Hemoglobin A1c 6.9 Performed By: #### [id number] #### ALEX Chemistry Manual Subsection [facility] [place] [address] XR CHEST 2 VIEWS Observed: 02/26/2018 Status: F Source: [place] 8:37 PM [facility] REPOSITORY Exam Date/Time: 02/26/2018 20:40 EDT Reason for Exam: dizzyness;Other (please specify) Report STUDY: XR Chest 2 Views; 02/26/2018 8:40 pm INDICATION: Dizziness COMPARISON: 01/06/2018 ACCESSION NUMBER(S): [id number] ORDERING CLINICIAN: Chai Goodman TECHNIQUE: Frontal and lateral views of the chest. FINDINGS: The cardiomediastinal silhouette is enlarged. The lungs are clear of focal consolidation. There is no pneumothorax or pleural effusion. IMPRESSION: No acute cardiopulmonary process. FINAL REPORT Dictated: 02/26/2018 8:59 pm Hamzah Pritchard MD Signed (Electronic Signature): 02/26/2018 8:59 pm Signed by: Hamzah Pritchard MD Technologist: ART Observed: 02/26/2018 Status: F Source: [place] RAPID STREP A 8:37 PM [facility] SCREEN REPOSITORY Final Report: Streptococcus Group A screen negative Performed By: #### [id number] #### ALEX Microbiology Subsection [facility] [place] [address] CT ABDOMEN/PELVIS W/ Observed: 02/02/2018 Status: F Source: [place] CONTRAST 11:38 PM [facility] REPOSITORY Exam Date/Time: 02/02/2018 23:45 EDT Reason for Exam: Pain Report STUDY: CT Abdomen/Pelvis w/ Contrast; 02/02/2018 11:45 pm INDICATION: Pain. COMPARISON: 01/05/2016 ACCESSION NUMBER(S): [id number] ORDERING CLINICIAN: Corrine Brown TECHNIQUE: Axial CT images of the abdomen and pelvis with coronal and sagittal reconstructed images obtained after intravenous administration of 100 mL Omnipaque 350 FINDINGS: LOWER CHEST: No acute abnormality of the lung bases. Coronary artery calcifications. BONES: No acute osseous abnormality. ABDOMINAL WALL: Within normal limits. ABDOMEN: LIVER: Within normal limits. BILE DUCTS: Normal caliber. GALLBLADDER: No cholecystectomy. PANCREAS: Within normal limits. SPLEEN: Within normal limits. ADRENALS: Within normal limits. KIDNEYS and URETERS: Symmetric renal enhancement. No hydronephrosis or perinephric fluid collection. Subcentimeter cortical hypodensity in the mid left kidney too small to characterize, but stable and statistically likely a cyst. VESSELS: No aortic aneurysm. RETROPERITONEUM: No pathologically enlarged retroperitoneal lymph nodes. PELVIS: REPRODUCTIVE ORGANS: No pelvic masses. BLADDER: Nondistended, limiting evaluation. BOWEL: No dilated bowel. The appendix has been removed. PERITONEUM: No ascites or free air, no fluid collection. Exam Date/Time: 02/02/2018 23:45 EDT Report IMPRESSION: No acute abdominal or pelvic process. FINAL REPORT Dictated: 02/03/2018 0:22 am Vanesa Salter MD Signed (Electronic Signature): 02/03/2018 0:22 am Signed by: Vanesa Salter MD Technologist: HARRY CBC W/ AUTO DIFF Collected: 02/02/2018 Status: F Source: [place] 7:40 PM [facility] REPOSITORY TYPE CODE TESTS RESULT OUT OF RANGE REFERENCE UNITS LAB 48977012(L 3.6-11.0 E3/mcL OINC) High WBC 14.4 LAB 10932959(L 3.90-6.10 E6/mcL OINC) Normal RBC 5.00 LAB 71087944(L 13.5-18.0 G/DL OINC) Normal Hgb 15.1 LAB 79379560(L 42.0-52.0 % OINC) Normal Hct 44.6 LAB 08826832(L 11.5-14.5 % OINC) Normal RDW 14.3 LAB 78097358(L 27.0-31.0 pg OINC) Normal MCH 30.2 LAB 34026476(L 33.0-37.0 G/DL OINC) Normal MCHC 33.8 LAB [id number](L 78.0-100.0 fL OINC) Normal MCV 89.3 LAB 93648619(L 7.4-11.0 fL OINC) Normal MPV 9.6 LAB 86650063(L 130-400 E3/mcL OINC) Normal Platelet 216 Performed By: #### [id number] #### ALEX [employer]el [facility] [place] [id number] AUTO DIFF Collected: 02/02/2018 Status: F Source: [place] 7:40 PM [facility] REPOSITORY Order Comment: Order Added by Discern Expert. TYPE CODE TESTS RESULT OUT OF RANGE REFERENCE UNITS LAB [id number](L 37.0-75.0 % OINC) Normal Neutro Auto 70.6 LAB 28740071(L 20.0-55.0 % OINC) Normal Lymph Auto 22.1 LAB 49698623(L 0.0-10.0 % OINC) Normal Yancey Auto 6.1 LAB 09746703(L 0.0-11.0 % OINC) Normal Eos Auto 0.6 LAB 38197160(L 0.0-2.0 % OINC) Normal Basophil Auto 0.6 LAB 43620736(L 1.4-6.5 E3/mcL OINC) High Neutro 10.2 Absolute LAB 84233858(L 1.2-3.4 E3/mcL OINC) Normal Lymph Absolute 3.2 LAB 05590847(L 0.0-0.7 E3/mcL OINC) High Yancey Absolute 0.9 LAB 37666816(L 0.0-0.7 E3/mcL OINC) Normal Eos Absolute 0.1 LAB 69470101(L 0.0-0.2 E3/mcL OINC) Normal Basophil 0.1 Absolute Performed By: #### [id number] #### ALEXJose CheemaHemgricel [facility] [place] [address] BMP Collected: 02/02/2018 Status: F Source: [place] 7:40 PM [facility] REPOSITORY TYPE CODE TESTS RESULT OUT OF RANGE REFERENCE UNITS LAB 31582972(L 70-99 mg/dL OINC) Glucose Normal Lvl 88 LAB 31889498(L 8.4-10.2 mg/dL OINC) Calcium Normal Lvl 8.9 LAB 21838277(L 136-145 mEq/L OINC) Sodium Normal Lvl 136 LAB 80991745(L 3.5-5.1 mEq/L OINC) Normal Potassium Lvl 3.7 LAB 96994621(L 98-107 mEq/L OINC) Chloride Normal 105 LAB 71581379(L 24.0-30.0 mEq/L OINC) Low CO2 22.9 LAB 50014576(L 7-18 mg/dL OINC) BUN Normal 16 LAB 4961592(LO 0.6-1.3 mg/dL INC) Normal Creatinine 0.7 LAB 33848344(L 5.4-30.0 ratio OINC) Normal BUN/Creat Ratio 22.9 Performed By: #### [id number] #### ALEX [employer] [address] [place] [id number] HEP FUNC PANEL Collected: 02/02/2018 Status: F Source: [place] 7:40 PM [facility] REPOSITORY TYPE CODE TESTS RESULT OUT OF RANGE REFERENCE UNITS LAB 17129818(L 10-40 Int._Unit/L OINC) Normal ALT 28 LAB 81815662(L 10-42 Int._Unit/L OINC) Normal AST 24 LAB 31854030(L 3.2-5.0 G/DL OINC) Normal Albumin Lvl 4.2 LAB 64012063(L 2.0-4.0 G/DL OINC) Normal Globulin 3.0 LAB 83709771(L 1.1-1.9 ratio OINC) Normal A/G Ratio 1.4 LAB 80597752(L 42-121 Int._Unit/L OINC) High Alk Phos 142 LAB 55943376(L .00-.20 mg/dL OINC) High Bili Direct .21 LAB 09284129(L OINC) Normal Bili Indirect 1.3 Result Comment: No established ranges available for the Indirect Biliruben. LAB 85087572(LOINC) 0.2-1.0 mg/dL High Bili Total 1.5 LAB [id number](LOINC) 6.4-8.3 G/DL Normal Total Protein 7.2 Performed By: #### [id number] #### ALEX [facility] [address] [id number] EGFR Collected: 02/02/2018 Status: F Source: [place] 7:40 PM [facility] REPOSITORY Order Comment: Order added by Discern Expert. TYPE CODE TESTS RESULT OUT OF RANGE REFERENCE UNITS LAB [id number](LO mL/min/1.73 INC) m2 Normal eGFR >60 LAB 70377103(LO mL/min/1.73 INC) m2 Normal eGFR AA >60 Performed By: #### [id number] #### ALEX [facility] [place] [address] LIPASE LEVEL Collected: 02/02/2018 Status: F Source: [place] 7:40 PM [facility] REPOSITORY TYPE CODE TESTS RESULT OUT OF RANGE REFERENCE UNITS LAB [id number](LO 8-57 U/L INC) Normal Lipase Lvl 26 Performed By: #### [id number] #### ALEX [facility] [place] [address] UA COMPLETE Collected: 02/02/2018 Status: F Source: [place] 7:30 PM [facility] REPOSITORY TYPE CODE TESTS RESULT OUT OF RANGE REFERENCE UNITS LAB [id number]( Yellow LOINC) Normal UA Color Yellow LAB 99686555( Clear LOINC) Normal UA Clarity Clear LAB 16330927( Negative LOINC) Normal UA Glucose Negative LAB 53377944( Negative LOINC) Normal UA Bili Negative LAB 97946873( Negative LOINC) Normal UA Ketones Negative LAB 95915035( 1.003-1.030 LOINC) Normal UA Spec Grav 1.014 LAB 50611978( 4.6-8.0 LOINC) Normal UA pH 5.0 LAB 21621204( Negative LOINC) Normal UA Protein Negative LAB 19640393( mg/dL LOINC) UA Abnormal Urobilinogen 2.0 LAB 29484743( Negative LOINC) Normal UA Nitrite Negative LAB 63472266( Negative LOINC) Normal UA Blood Negative LAB 60862251( Negative LOINC) Normal UA Leuk Est Negative LAB 37179647( 0-3 /HPF LOINC) Normal UA RBC 0-3 LAB 04589264( 0-5 /HPF LOINC) Normal UA WBC 0-5 LAB 30523454( Trace /LPF LOINC) UA Mucous Abnormal Trace Performed By: #### [id number] #### ALEX Urinalysis Automated Subsection [facility] [place] [address] GI PANEL Collected: 02/02/2018 Status: F Source: [place] 7:25 PM [facility] REPOSITORY Order Comment: A negative FilmArray GI Panel result does not exclude the possibility of gastrointestinal infection. TYPE CODE TESTS RESULT OUT OF REFERENCE UNITS RANGE LAB 670100836 (LOINC) Campylobacter Normal Not Detected LAB 559758118 (LOINC) Clostridium difficile Normal toxin A/B Not Detected LAB 589447699 (LOINC) Plesiomonas Normal shigelloides Not Detected LAB 046490424 (LOINC) Salmonella Normal Not Detected LAB 505519147 (LOINC) Vibrio Normal Not Detected LAB 649766137 (LOINC) Vibrio cholerae Normal Not Detected LAB 313712332 (LOINC) Yersinia Normal enterocolitica Not Detected LAB 821538840 (LOINC) Enteroaggregatvie E Normal coli (EAEC) Not Detected LAB 019606929 (LOINC) Enteropathogenic E Normal Coli (EPEC) Not Detected LAB 273348312 (LOINC) Enterotoxigenci E coli Normal (ETEC)lt/st Not Detected LAB 556013813 (LOINC) Shiga-like Normal toxin-producing E coli Not Detected (STEC) LAB 758869702 (LOINC) Shigella/Enteroinvasiv Normal e E coli (EIEC) Not Detected LAB 586818998 (LOINC) Cryptosporidium Normal Not Detected LAB 547115694 (LOINC) Cyclospora Normal cayetanensis Not Detected LAB 395031326 (LOINC) Entamoeba histolytica Normal Not Detected LAB 054188981 (LOINC) Giardia lamblia Normal Not Detected LAB 416514213 (LOINC) Adenovirus F40/41 Normal Not Detected LAB 786181511 (LOINC) Astrovirus Normal Not Detected LAB 664917704 (LOINC) Norovirus GI/GII Normal Not Detected LAB 077320928 (LOINC) Rotavirus A Normal Not Detected Result Comment: The performance of the FilmArray GI Panel has not been established in individuals who received Rotavirus A vaccine. Recent oral administration of a Rotavirus A vaccine may cause positiv e results for Rotavirus A if the virus is passed in the stool. Note: A negative FilmArray GI Panel does not exclude the possibility of gastrointestinal infection. LAB 610693278(LOINC) Normal Sapovirus Not Detected LAB 542321469(LOINC) E Normal coli 0157 Not Detected Performed By: #### [id number] #### ALEX [facility] [place] Micro SubSection , TROPONIN-I Collected: 01/06/2018 Status: F Source: [place] 9:40 PM [facility] REPOSITORY TYPE CODE TESTS RESULT OUT OF RANGE REFERENCE UNITS LAB 76372893(LO .00-.03 ng/mL INC) Normal <.01 Troponin-I Performed By: #### [id number] #### ALEX [address] [id number] XR CHEST AP PORTABLE Observed: 01/06/2018 Status: F Source: [place] 7:26 PM [facility] REPOSITORY Exam Date/Time: 01/06/2018 19:29 EDT Reason for Exam: Chest pain Report STUDY: XR Chest AP Portable; 01/06/2018 7:29 pm INDICATION: Chest pain. COMPARISON: 12/02/2017. ACCESSION NUMBER(S): [id number] ORDERING CLINICIAN: Cornelius Nickerson FINDINGS: CARDIOMEDIASTINAL SILHOUETTE: Cardiomediastinal silhouette is normal in size and configuration. LUNGS: Lungs are clear. No pleural effusion or pneumothorax is seen. ABDOMEN: No remarkable upper abdominal findings. BONES: No acute osseous changes. IMPRESSION: 1. No evidence of acute cardiopulmonary process. FINAL REPORT Dictated: 01/06/2018 8:20 pm Cornelius Melvin MD Signed (Electronic Signature): 01/06/2018 8:20 pm Signed by: Cornelius Melvin MD Technologist: AM, CBC W/ AUTO DIFF Collected: 01/06/2018 Status: F Source: [place] 6:55 PM [facility] REPOSITORY TYPE CODE TESTS RESULT OUT OF RANGE REFERENCE UNITS LAB 54751693(L 3.6-11.0 E3/mcL OINC) Normal WBC 11.0 LAB 16151293(L 3.90-6.10 E6/mcL OINC) Normal RBC 4.65 LAB 94114814(L 13.5-18.0 G/DL OINC) Normal Hgb 14.1 LAB 20897097(L 42.0-52.0 % OINC) Normal Hct 42.2 LAB 13817140(L 11.5-14.5 % OINC) Normal RDW 14.2 LAB 24328746(L 27.0-31.0 pg OINC) Normal MCH 30.3 LAB 41919006(L 33.0-37.0 G/DL OINC) Normal MCHC 33.5 LAB 82623568(L 78.0-100.0 fL OINC) Normal MCV 90.6 LAB 22079706(L 7.4-11.0 fL OINC) Normal MPV 9.2 LAB 65985110(L 130-400 E3/mcL OINC) Normal Platelet 206 Performed By: #### [id number] #### ALEX [facility] [id number] AUTO DIFF Collected: 01/06/2018 Status: F Source: [place] 6:55 [facility] REPOSITORY Order Comment: Order Added by Discern Expert. TYPE CODE TESTS RESULT OUT OF RANGE REFERENCE UNITS LAB 09326450(L 37.0-75.0 % OINC) Normal Neutro Auto 70.8 LAB 05235542(L 20.0-55.0 % OINC) Normal Lymph Auto 22.0 LAB 13746993(L 0.0-10.0 % OINC) Normal Yancey Auto 6.1 LAB 65786296(L 0.0-11.0 % OINC) Normal Eos Auto 0.5 LAB 29504703(L 0.0-2.0 % OINC) Normal Basophil Auto 0.6 LAB 10882661(L 1.4-6.5 E3/mcL OINC) High Neutro 7.8 Absolute LAB 22910022(L 1.2-3.4 E3/mcL OINC) Normal Lymph Absolute 2.4 LAB 40847803(L 0.0-0.7 E3/mcL OINC) Normal Yancey Absolute 0.7 LAB 25440846(L 0.0-0.7 E3/mcL OINC) Normal Eos Absolute 0.1 LAB 11617792(L 0.0-0.2 E3/mcL OINC) Normal Basophil 0.1 Absolute Performed By: #### [id number] #### ALEX [facility] [id number] BMP Collected: 01/06/2018 Status: F Source: [place] 6:55 [facility] REPOSITORY TYPE CODE TESTS RESULT OUT OF RANGE REFERENCE UNITS LAB 49129011(L 70-99 mg/dL OINC) Glucose Normal Lvl 99 LAB 35571732(L 8.4-10.2 mg/dL OINC) Calcium Normal Lvl 9.2 LAB 34612815(L 136-145 mEq/L OINC) Sodium Normal Lvl 139 LAB 22137799(L 3.5-5.1 mEq/L OINC) Normal Potassium Lvl 3.7 LAB 32806638(L 98-107 mEq/L OINC) Chloride Normal 107 LAB 16266640(L 24.0-30.0 mEq/L OINC) Low CO2 23.2 LAB 15673768(L 7-18 mg/dL OINC) BUN Normal 14 LAB 2774181(LO 0.6-1.3 mg/dL INC) Normal Creatinine 0.9 LAB 88284537(L 5.4-30.0 ratio OINC) Normal BUN/Creat Ratio 15.6 Performed By: #### [id number] #### [facility]LEX [facility] [address] [place] [address] MAGNESIUM Collected: 01/06/2018 Status: F Source: [place] 6:55 [facility] REPOSITORY TYPE CODE TESTS RESULT OUT OF RANGE REFERENCE UNITS LAB 74857515(L 1.7-2.8 mg/dL OINC) Normal Magnesium 1.8 Performed By: #### [id number] #### [facility]LEX [facility] [address] [place] [address] EGFR Collected: 01/06/2018 Status: F Source: [place] 6:55 [facility] REPOSITORY Order Comment: Order added by Discern Expert. TYPE CODE TESTS RESULT OUT OF RANGE REFERENCE UNITS LAB 90170968(LO mL/min/1.73 INC) m2 Normal eGFR >60 LAB 22750001(LO mL/min/1.73 INC) m2 Normal eGFR AA >60 Performed By: #### [id number] #### [facility]LEX [facility] [address] [place] [address] TROPONIN-I Collected: 01/06/2018 Status: F Source: [place] 6:55 [facility] REPOSITORY TYPE CODE TESTS RESULT OUT OF RANGE REFERENCE UNITS LAB 60520503(LO .00-.03 ng/mL INC) Normal <.01 Troponin-I Performed By: #### [id number] #### [facility]LEX [facility] [address] [id number] CARDIOLOGY VISIT Observed: 12/20/2017 Status: F Source: [place] REPORT 12:44 PM [facility] [place] [facility] [address] [place] [address] OFFICE VISIT Date of Service: 12/20/17 MR#: [id number] Acct: [id number] Name: HU PEREZ Rep #: [id number] : 1975 Provider: Linnette Calderon Age/Sex: 42/M Location: [facility] Status: Signed HPI HPI Details: HU PEREZ, is a 42 M who presents to the office today for a cardiovascular outpatient follow-up regarding recent emergency department visit. Patient is a history of coronary artery disease status post stenting to OM #1 in December 2016 and PTCA/YOHANA to prox RCA in July 2017, hyperlipidemia, and obstructive sleep apnea. Unfortunately he resumed smoking. He was at [facility] 2 weeks ago, for chest pain. He was admitted for observation. He sts he underwent a stress test and was told it was negative. He sts that he was mowing the grass when he had chest pain. He did not have NTG at home. It lasted approx 25 minutes. He sts that he would occasionally have chest pain prior to his ER visit. They resumed his Isosorbide. His sts that he sleeps alot. She feels that this is newer for him. He does use his CPAP. He does not have any lightheadedness/dizziness. He does not have any near syncope/syncope. He does not have any claudication. He completed cardiac rehab this past week without any difficulty. He sts that he plans on staying active and playing softball over the summer. 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 Required: No Accompanied by: Is patient in pain?: No Allergies Penicillins Allergy (Verified 12/20/17 10:46) Unknown olanzapine [From Zyprexa] Adverse Reaction (Severe, Verified 12/20/17 10:46) aggresion/sleepiness Medications Aspirin [Aspirin, Baby] 81 mg PO DAILY@0800 03/02/16 [History Confirmed 12/20/17] Brexpiprazole [Rexulti] 3 mg PO DAILY 01/24/17 [History Confirmed 09/17/17] Metoprolol Tartrate [Lopressor (beta marely)] 12.5 mg PO BID #30 tab 01/26/17 [Rx Confirmed 12/20/17] insulin glargine (U-100) 100 unit/mL subcutaneous solution 30 units SC QHS 08/14/17 [History Confirmed 12/20/17] fenofibrate 54 mg tablet 54 mg PO QDAY 08/15/17 [History Confirmed 12/20/17] pantoprazole 40 mg tablet,delayed release 40 mg PO QDAY 08/15/17 [History Confirmed 12/20/17] lisinopril 5 mg tablet 5 mg PO QDAY 09/11/17 [History Confirmed 12/20/17] clopidogrel 75 mg tablet 75 mg PO DAILY #90 tab 09/17/17 [Rx Confirmed 12/20/17] metformin 500 mg tablet 500 mg PO BID 09/17/17 [History Confirmed 12/20/17] atorvastatin 40 mg tablet PO 30 Days #30 12/20/17 [History Confirmed 12/20/17] isosorbide mononitrate ER 60 mg tablet,extended release 24 hr PO 30 Days #30 12/20/17 [History Confirmed 12/20/17] nitroglycerin 0.4 mg sublingual tablet 0.4 mg SUBLINGUAL Q5M PRN #25 tab 12/20/17 [Rx Confirmed 12/20/17] Ejection fraction %: 65 to 70 (65% per echo 03/28/2017 at [facility] Medical History Hypotension (Acute) RENETTA (obstructive sleep apnea) (Chronic) Chest pain (Acute) Fatigue (Acute) SOB (shortness of breath) (Acute) Dyspnea (Acute) Atherosclerosis of marshall coronary artery of marshall heart without angina pectoris (Chronic) ACS (acute coronary syndrome) (Acute) HTN (hypertension) (Chronic) DM2 (diabetes mellitus, type 2) (Chronic) Hyperlipidemia (Chronic) Depression (Acute) RENETTA (obstructive sleep apnea) (Acute) Schizophrenia (Acute) Hypertension (Chronic) Depression (Inactive) Schizophrenia (Inactive) Surgical History Presence of stent in coronary artery (Chronic 01/25/17) Family History Father Heart disease Brother CAD (coronary artery disease) Social History Smoking Status: Current some day smoker alcohol intake: never substance use type: does not use caffeine: Yes Type: carbonated beverages what type of physical activity do you participate in: walking frequency: 3-4 times per week duration: 15-30 minutes/day seatbelt use: always do you feel safe at home: Yes ROS Const Const: Negative for fatigue, weakness, body ache, fever(s) or chills ENT ENT: Negative for dizziness Cardio Chest Pain: No Edema: None Muscle aches with walking: None Resp Respiratory: Negative for SOB with activity, SOB at rest, SOB orthopnea\SOB lying down or paroxysmal nocturnal dyspnea GI GI: Negative nausea, black,tarry stools, bright, red blood in stools or vomiting blood/hematemesis : Negative for hematuria or frequent nighttime urination/ nocturia Musc Musc: Negative for muscle aches/ myalgia Neuro Neuro: Negative for weakness or dizziness Endo Endo: Negative for fatigue Cardiology Exam Const Appearance: cooperative, healthy appearing, comfortable and no acute distress Orientation: alert, awake and oriented x3 Head Head: normal to inspection Mouth: oral mucosae normal Neck Neck: no JVD and normal visual inspection Carotids: normal carotid upstroke Chest Chest inspection: normal inspection of the chest and normal respiratory effort Auscultation: Bilateral: Clear to Auscultation Cardio Rate: regular rate Rhythm: regular rhythm Heart sounds: S1 normal and S2 normal; negative rub or gallop GI GI: normal to inspection Neuro General: alert, awake, oriented x3 and CN's II-XI intact bilaterally Skin Skin: no rashes or lesions noted Extremities Pulses: Normal: Right Posterior Tibial Pulse, Left Posterior Tibial Pulse, Right Radial Pulse, Left Radial Pulse Lower Extremity Edema: None: Bilateral Psych Psychological: normal affect Assessment AND Plan 1. Atherosclerosis of marshall coronary artery of marshall heart without angina pectoris I25.10 PTCA/YOHANA to OM#1, mid RCA FFR (no PCI) 01/25/2017; PCI/YOHANA to RCA 08/20/2017; Plan Patient did have chest discomfort and was seen in an outside hospital. We will obtain his medical records to further evaluate. Did give a prescription for as needed nitrates. He will remain on his isosorbide and metoprolol. His isosorbide was previously discontinued due to low blood pressure. He was advised that if he has any further chest discomfort to give us a call. Do not feel that any additional testing needs to be done at this time as he recently completed cardiac rehab without any difficulty. 2. Hyperlipidemia, unspecified hyperlipidemia type E78.5 Plan Patient will continue with current medical management. There is a question of whether or not he is on 40 or 80 mg of Lipitor. Suspect that is 40. We will continue to monitor his labs. 3. Hypotension, unspecified hypotension type I95.9 Plan Patient does have low blood pressure readings however he is able to tolerate his low-dose metoprolol and isosorbide. We will continue to monitor. 4. Tobacco abuse Z72.0 Plan Unfortunately patient returned to smoking. Did encourage smoking cessation. Patient Instructions Patient will continue with his CPAP. 5. RENETTA (obstructive sleep apnea) G47.33 Plan Detail Other Medications Refilled: Additional Comments Thank you for allowing us to participate in patient's plan of care, if you have any questions please do not hesitate to call. This note was generated using a voice recognition system and there may be incorrect words, spelling or punctuation errors that were not noted when reviewing the office note prior to saving. Follow Up 12/20/17 (please obtain MR from Talisha woo from earlier this month- thanks) 6 Months (GENI) Coding Level of Care Code Off vis,est,level 3 Diagnoses Atherosclerosis of marshall coronary artery of marshall heart without angina pectoris I25.10 Hyperlipidemia, unspecified hyperlipidemia type E78.5 Hyperlipidemia type: unspecified Hypotension, unspecified hypotension type I95.9 Hypotension type: unspecified hypotension type Tobacco abuse Z72.0 RENETTA (obstructive sleep apnea) G47.33 Coding Level of Care Code Off vis,est,level 3 Diagnoses Atherosclerosis of marshall coronary artery of marshall heart without angina pectoris I25.10 Hyperlipidemia, unspecified hyperlipidemia type E78.5 Hyperlipidemia type: unspecified Hypotension, unspecified hypotension type I95.9 Hypotension type: unspecified hypotension type Tobacco abuse Z72.0 RENETTA (obstructive sleep apnea) G47.33 12/20/17 1244 <Electronically signed by Linnette SIMMONS> Date Linnette Holly Signature: Date (if applicable) CC: MARAL GLUCOSE POC Collected: 12/03/2017 Status: F Source: [place] 7:10 AM [facility] REPOSITORY TYPE CODE TESTS RESULT OUT OF REFERENCE UNITS RANGE LAB 51564249(LO 70-99 mg/dL INC) High Glucose POC 123 Performed By: #### [id number] #### [place] [address] NM MYOCARDIAL SPECT Observed: 12/03/2017 Status: F Source: [place] MULTI REST/STRESS 6:43 AM [facility] REPOSITORY Exam Date/Time: 12/03/2017 10:04 EDT Reason for Exam: Chest pain Report PHARMACOLOGIC STRESS MYOCARDIAL PERFUSION SPECT IMAGING: HISTORY: Chest pain. COMPARISON: Myocardial perfusion scan 11/23/2016. TECHNIQUE: The patient was injected with 13 mCi of Tc-99m sestamibi, and SPECT imaging was performed at rest without and with ECG gating. The patient was injected during pharmacologic stress with 48 mCi of Tc-99m sestamibi, and SPECT imaging was again performed with and without ECG gating. The patient was infused with 0.4 mg of Lexiscan. FINDINGS: There is normal perfusion at rest and stress. The post-stress left ventricular ejection fraction is 65%, and the resting left ventricular ejection fraction is 70%. There is normal wall motion and wall thickening. The left ventricle is normal in size. The end-diastolic volume is 77 mL and the end-systolic volume is 27 mL. IMPRESSION: 1. Normal myocardial perfusion SPECT imaging. 2. Normal wall motion and wall thickening. FINAL REPORT Dictated: 12/03/2017 11:01 am Froylan Jules MD Signed (Electronic Signature): 12/03/2017 11:01 am Signed by: Froylan Jules MD Technologist: VINNIE COVARRUBIAS Collected: 12/03/2017 Status: F Source: [place] 4:00 AM [facility] REPOSITORY TYPE CODE TESTS RESULT OUT OF RANGE REFERENCE UNITS LAB 05154930(L 70-99 mg/dL OINC) High Glucose Lvl 142 LAB 46773112(L 8.4-10.2 mg/dL OINC) Calcium Normal Lvl 9.0 LAB 36568111(L 136-145 mEq/L OINC) Sodium Normal Lvl 141 LAB 56675124(L 3.5-5.1 mEq/L OINC) Normal Potassium Lvl 4.1 LAB 13979719(L 98-107 mEq/L OINC) High Chloride 109 LAB 29336892(L 24.0-30.0 mEq/L OINC) CO2 Normal 25.4 LAB 09060079(L 7-18 mg/dL OINC) BUN Normal 18 LAB 1211879(LO 0.6-1.3 mg/dL INC) Normal Creatinine 0.9 LAB 30974170(L 5.4-30.0 ratio OINC) Normal BUN/Creat Ratio 20.0 Performed By: #### [id number] #### [place] [address] CBC W/ AUTO DIFF Collected: 12/03/2017 Status: F Source: [place] 4:00 AM [facility] REPOSITORY TYPE CODE TESTS RESULT OUT OF RANGE REFERENCE UNITS LAB 26632484(L 3.6-11.0 E3/mcL OINC) Normal WBC 10.9 LAB 60582863(L 3.90-6.10 E6/mcL OINC) Normal RBC 4.48 LAB 05009827(L 13.5-18.0 G/DL OINC) Normal Hgb 13.6 LAB 94745816(L 42.0-52.0 % OINC) Low Hct 40.4 LAB 05406341(L 11.5-14.5 % OINC) Normal RDW 14.4 LAB 98208107(L 27.0-31.0 pg OINC) Normal MCH 30.4 LAB 36661271(L 33.0-37.0 G/DL OINC) Normal MCHC 33.7 LAB 76714349(L 78.0-100.0 fL OINC) Normal MCV 90.1 LAB 73248959(L 7.4-11.0 fL OINC) Normal MPV 9.2 LAB 50543459(L 130-400 E3/mcL OINC) Normal Platelet 246 Performed By: #### [id number] #### ALEX [facility] [address] [place], [place] [id number] AUTO DIFF Collected: 12/03/2017 Status: F Source: [place] 4:00 AM [facility] REPOSITORY Order Comment: Order Added by Discern Expert. TYPE CODE TESTS RESULT OUT OF RANGE REFERENCE UNITS LAB 28083232(L 37.0-75.0 % OINC) Normal Neutro Auto 60.1 LAB 17684031(L 20.0-55.0 % OINC) Normal Lymph Auto 29.5 LAB 10267081(L 0.0-10.0 % OINC) Normal Yancey Auto 8.5 LAB 87498519(L 0.0-11.0 % OINC) Normal Eos Auto 1.0 LAB 46289675(L 0.0-2.0 % OINC) Normal Basophil Auto 0.9 LAB 38932224(L 1.4-6.5 E3/mcL OINC) Normal Neutro 6.5 Absolute LAB 16387933(L 1.2-3.4 E3/mcL OINC) Normal Lymph Absolute 3.2 LAB 40319677(L 0.0-0.7 E3/mcL OINC) High Yancey Absolute 0.9 LAB 76948171(L 0.0-0.7 E3/mcL OINC) Normal Eos Absolute 0.1 LAB 77861541(L 0.0-0.2 E3/mcL OINC) Normal Basophil 0.1 Absolute Performed By: #### [id number] #### ALEX [facility] [address] [place], [place] [id number] TROPONIN-I Collected: 12/03/2017 Status: F Source: [place] 4:00 AM [facility] REPOSITORY TYPE CODE TESTS RESULT OUT OF RANGE REFERENCE UNITS LAB 04510166(LO .00-.03 ng/mL INC) Normal <.01 Troponin-I Performed By: #### [id number] #### ALEX [facility] [address] [place] [address] LIPID PROFILE Collected: 12/03/2017 Status: F Source: [place] 4:00 AM [facility] REPOSITORY TYPE CODE TESTS RESULT OUT OF RANGE REFERENCE UNITS LAB 20669249(LO 50-200 mg/dL INC) Normal Chol 142 Result Comment: TOTAL CHOLEESTEROL: <200 NORMAL 200 - 239 BORDERLINE HIGH >240 HIGH LAB 19535810(LOINC) >=41 mg/dL Low HDL 28 LAB 74410123(LOINC) 0-130 mg/dL Normal LDL 84 Result Comment: <100 OPTIMAL 100-129 NEAR / ABOVE OPTIMAL 130-159 BORDERLINE HIGH 160-189 HIGH >190 VERY HIGH CALC LDL NOT VALID WHEN TRIGLYCERIDE IS >400 MG/DL LAB 06512499(LOINC) 35-150 mg/dL High Trig 152 Result Comment: <150 NORMAL 150-199 BORDERLINE HIGH 200-499 HIGH >500 VERY HIGH LAB 81974762(LOINC) Normal VLDL 30 Performed By: #### [id number] #### ALEX [facility] [address] [place] [address] EGFR Collected: 12/03/2017 Status: F Source: [place] 4:00 AM [facility] REPOSITORY Order Comment: Order added by Discern Expert. TYPE CODE TESTS RESULT OUT OF RANGE REFERENCE UNITS LAB 28673261(LO mL/min/1.73 INC) m2 Normal eGFR >60 LAB 06317829(LO mL/min/1.73 INC) m2 Normal eGFR AA >60 Performed By: #### [id number] #### ALEX [facility] [address] [place] [address] TROPONIN-I Collected: 12/02/2017 Status: F Source: [place] 10:06 PM [facility] REPOSITORY TYPE CODE TESTS RESULT OUT OF RANGE REFERENCE UNITS LAB 24331880(LO .00-.03 ng/mL INC) Normal <.01 Troponin-I Performed By: #### [id number] #### ALEX [employer] [address] [place] [address] GLUCOSE POC Collected: 12/02/2017 Status: F Source: [place] 8:44 PM [facility] REPOSITORY TYPE CODE TESTS RESULT OUT OF REFERENCE UNITS RANGE LAB 90039376(LO 70-99 mg/dL INC) High Glucose POC 139 Performed By: #### [id number] #### ALEX POC Subsection [address] [place] [address] TROPONIN-I Collected: 12/02/2017 Status: F Source: [place] 6:38 PM [facility] REPOSITORY Order Comment: Collect 3 hours from intitial ED draw TYPE CODE TESTS RESULT OUT OF RANGE REFERENCE UNITS LAB 58843855(LO .00-.03 ng/mL INC) Normal <.01 Troponin-I Performed By: #### [id number] #### ALEX [facility] [address] [place] [address] GLUCOSE POC Collected: 12/02/2017 Status: F Source: [place] 6:09 PM [facility] REPOSITORY TYPE CODE TESTS RESULT OUT OF REFERENCE UNITS RANGE LAB 24913583(LO 70-99 mg/dL INC) High Glucose POC 107 Performed By: #### [id number] #### ALEX POC Subsection [address] [place] [address] HGBA1C Collected: 12/02/2017 Status: F Source: [place] 5:51 PM [facility] REPOSITORY TYPE CODE TESTS RESULT OUT OF REFERENCE UNITS RANGE LAB 799321901( 4.0-6.3 % LOINC) High Hemoglobin A1c 7.0 Performed By: #### [id number] #### ALEX Chemistry Manual Subsection [address] [place] [address] CBC W/ AUTO DIFF Collected: 12/02/2017 Status: F Source: [place] 3:56 PM [facility] REPOSITORY TYPE CODE TESTS RESULT OUT OF RANGE REFERENCE UNITS LAB [id number](L 3.6-11.0 E3/mcL OINC) Normal WBC 10.5 LAB [id number](L 3.90-6.10 E6/mcL OINC) Normal RBC 4.75 LAB [id number](L 13.5-18.0 G/DL OINC) Normal Hgb 14.3 LAB [id number](L 42.0-52.0 % OINC) Normal Hct 43.1 LAB 21854451(L 11.5-14.5 % OINC) Normal RDW 14.3 LAB 21824561(L 27.0-31.0 pg OINC) Normal MCH 30.0 LAB 10459921(L 33.0-37.0 G/DL OINC) Normal MCHC 33.1 LAB [id number](L 78.0-100.0 fL OINC) Normal MCV 90.7 LAB 48811550(L 7.4-11.0 fL OINC) Normal MPV 9.5 LAB [id number](L 130-400 E3/mcL OINC) Normal Platelet 241 Performed By: #### [id number] #### ALEX [facility] [place] [address] AUTO DIFF Collected: 12/02/2017 Status: F Source: MOSQUE 3:56 [facility] REPOSITORY Order Comment: Order Added by Discern Expert. TYPE CODE TESTS RESULT OUT OF RANGE REFERENCE UNITS LAB [id number](L 37.0-75.0 % OINC) Normal Neutro Auto 66.9 LAB 67613492(L 20.0-55.0 % OINC) Normal Lymph Auto 23.1 LAB 63544875(L 0.0-10.0 % OINC) Normal Yancey Auto 8.0 LAB 94475016(L 0.0-11.0 % OINC) Normal Eos Auto 0.7 LAB 16550170(L 0.0-2.0 % OINC) Normal Basophil Auto 1.3 LAB 60815590(L 1.4-6.5 E3/mcL OINC) High Neutro 7.0 Absolute LAB 16493401(L 1.2-3.4 E3/mcL OINC) Normal Lymph Absolute 2.4 LAB 71061588(L 0.0-0.7 E3/mcL OINC) High Yancey Absolute 0.8 LAB 04969429(L 0.0-0.7 E3/mcL OINC) Normal Eos Absolute 0.1 LAB 23373816(L 0.0-0.2 E3/mcL OINC) Normal Basophil 0.1 Absolute Performed By: #### [id number] #### ALEX [facility] [place] [address] PT Collected: 12/02/2017 Status: F Source: [place] 3:56 [facility] REPOSITORY TYPE CODE TESTS RESULT OUT OF RANGE REFERENCE UNITS LAB [id number](LO 1.0-1.2 INC) Normal INR 1.0 Result Comment: INR Recommended Therapeuptic Ranges: Prophylaxis/treatment of DVT and PE?2.0-3.0 Prevention of systemic embolism?.2.0-3.0 Mechanical prosthetic values?2.5-3.5 CRITICAL VALUES?.>4.0 LAB [id number](LOINC) 11.6-14.6 second(s) Normal 12.8 PT Performed By: #### [id number] #### ALEX Hematology Automated Subsection [address] [place] [address] PTT Collected: 12/02/2017 Status: F Source: [place] 3:56 PM [facility] REPOSITORY TYPE CODE TESTS RESULT OUT OF RANGE REFERENCE UNITS LAB 48731413(LO 23.2-36.4 second(s) INC) Normal PTT 30.9 Performed By: #### [id number] #### ALEX Hematology Automated Subsection [address] [place] [address] PTT CONTROL RATIO Collected: 12/02/2017 Status: F Source: [place] 3:56 PM [facility] REPOSITORY Order Comment: Order added by Discern Expert. TYPE CODE TESTS RESULT OUT OF RANGE REFERENCE UNITS LAB [id number](LO 0.8-1.2 ratio INC) Normal PTT Ratio 1.0 Performed By: #### [id number] #### ALEX Hematology Automated Subsection [address] [place] [address] BMP Collected: 12/02/2017 Status: F Source: [place] 3:56 PM [facility] REPOSITORY TYPE CODE TESTS RESULT OUT OF RANGE REFERENCE UNITS LAB [id number](L 70-99 mg/dL OINC) High Glucose Lvl 181 LAB 53448670(L 8.4-10.2 mg/dL OINC) Calcium Normal Lvl 9.5 LAB 02447011(L 136-145 mEq/L OINC) Sodium Normal Lvl 141 LAB 11889393(L 3.5-5.1 mEq/L OINC) Normal Potassium Lvl 4.1 LAB 13972516(L 98-107 mEq/L OINC) High Chloride 110 LAB 89708770(L 24.0-30.0 mEq/L OINC) Low CO2 23.5 LAB 47052179(L 7-18 mg/dL OINC) BUN Normal 16 LAB 8026587(LO 0.6-1.3 mg/dL INC) Normal Creatinine 0.9 LAB 60490723(L 5.4-30.0 ratio OINC) Normal BUN/Creat Ratio 17.8 Performed By: #### [id number] #### ALEX [facility] [address] [id number] MAGNESIUM Collected: 12/02/2017 Status: F Source: [place] 3:56 PM [facility] REPOSITORY TYPE CODE TESTS RESULT OUT OF RANGE REFERENCE UNITS LAB 66781218(L 1.7-2.8 mg/dL OINC) Normal Magnesium 2.1 Performed By: #### [id number] #### ALEX [facility] [place] [id number] EGFR Collected: 12/02/2017 Status: F Source: [place] 3:56 PM [facility] REPOSITORY Order Comment: Order added by Discern Expert. TYPE CODE TESTS RESULT OUT OF RANGE REFERENCE UNITS LAB [id number](LO mL/min/1.73 INC) m2 Normal eGFR >60 LAB 62099120(LO mL/min/1.73 INC) m2 Normal eGFR AA >60 Performed By: #### [id number] #### ALEX [place] [address] [place] [id number] TROPONIN-I Collected: 12/02/2017 Status: F Source: [place] 3:56 PM [facility] TYPE CODE TESTS RESULT OUT OF RANGE REFERENCE UNITS LAB [id number](LO .00-.03 ng/mL INC) Normal <.01 Troponin-I Performed By: #### [id number] #### ALEX [facility] [place] [id number] XR CHEST AP PORTABLE Observed: 12/02/2017 Status: F Source: [place] 3:52 PM [facility] Exam Date/Time: 12/02/2017 15:56 EDT Reason for Exam: Chest pain Report PORTABLE CHEST: COMPARISON: Portable chest from 09/07/2017. REASON FOR STUDY: Chest pain. REPORT: Trachea, mediastinum are unremarkable. Heart size is mildly prominent. No effusion or nodule or pneumothorax is noted. The diaphragm and bony elements are intact. IMPRESSION: Nonacute portable chest with mild cardiomegaly. FINAL REPORT Dictated: 12/02/2017 5:04 pm Ck Lucio DO Signed (Electronic Signature): 12/02/2017 5:04 pm Signed by: Ck Lucio DO Technologist: NAILA BMP Collected: 10/02/2017 Status: F Source: [place] 10:51 AM [facility] REPOSITORY TYPE CODE TESTS RESULT OUT OF RANGE REFERENCE UNITS LAB 42043362(L 70-99 mg/dL OINC) High Glucose Lvl 159 LAB 66622623(L 7-18 mg/dL OINC) High BUN 20 LAB 4729939(LO 0.6-1.3 mg/dL INC) Normal Creatinine 1.0 LAB 83876091(L 5.4-30.0 ratio OINC) Normal BUN/Creat Ratio 20.0 LAB 92138441(L 8.4-10.2 mg/dL OINC) Calcium Normal Lvl 9.8 LAB 52261356(L 136-145 mEq/L OINC) Sodium Normal Lvl 141 LAB 90744520(L 3.5-5.1 mEq/L OINC) Normal Potassium Lvl 4.0 LAB 18713215(L 98-107 mEq/L OINC) Chloride Normal 106 LAB 60686447(L 24.0-30.0 mEq/L OINC) Low CO2 23.9 Performed By: #### [id number] #### ALEX [employer] [address] [place] [address] EGFR Collected: 10/02/2017 Status: F Source: [place] 10:51 AM [facility] REPOSITORY Order Comment: Order added by Discern Expert. TYPE CODE TESTS RESULT OUT OF RANGE REFERENCE UNITS LAB 67687922(LO mL/min/1.73 INC) m2 Normal eGFR >60 LAB 29944874(LO mL/min/1.73 INC) m2 Normal eGFR AA >60 Performed By: #### [id number] #### ALEX [employer] [address] [place] [address] HGBA1C Collected: 10/02/2017 Status: F Source: [place] 10:51 AM [facility] REPOSITORY TYPE CODE TESTS RESULT OUT OF REFERENCE UNITS RANGE LAB 485931299( 4.0-6.3 % LOINC) High Hemoglobin A1c 6.8 Performed By: #### [id number] #### ALEX Chemistry Manual Subsection [address] [place] [address] CBC W/DIFF, AUTOMATED Collected: 10/01/2017 Status: F Source: [place] 12:04 PM [facility] [place] TYPE CODE TESTS RESULT OUT OF RANGE REFERENCE UNITS LAB L100.1000 4.4-11.0 K/mm3 High WBC 11.2 LAB L100.1200 4.6-6.2 M/mm3 Low RBC 4.41 LAB L100.1300 13.0-16.5 g/dl Normal HGB 13.1 LAB L100.1400 40-54 % Normal HCT 40.8 LAB L100.1500 80-94 fL Normal MCV 92.5 LAB L100.1600 27.0-32.0 pg Normal MCH 29.7 LAB L100.1700 32-36 g/gl Normal MCHC 32.1 LAB L100.1810 11.6-14.6 % Normal RDW CV 13.9 LAB L100.1820 35.1-43.9 fl High RDW SD 47.2 LAB L100.1900 150-450 K/mm3 Normal PLT 248 LAB L100.2000 6.2-12.0 fl Normal MPV 10.9 LAB L100.2100 47-70 % Normal NEUT% 68.9 LAB L100.2200 19-41 % Normal LY% 21.9 LAB L100.2300 0-10 % Normal MONO% 8.3 LAB L100.2400 0-5 % Normal EO% 0.4 LAB L100.2500 0-1 % Normal BASO% 0.2 LAB L100.2550 0.0-0.9 % Normal IM GRAN % 0.300 Result Comment: IG% - Immature Granulocytes (promyelocytes, myelocytes and metamyelocytes) > 1% indicates that a LEFT SHIFT is Present. LAB L100.2620 2.0-7.7 X10 3/uL Normal Absolute Neut 7.7 LAB L100.2720 0.83-4.51 X10 3/ul Normal Absolute Lymph 2.45 Performed By: #### L100.0100 #### [facility] [address] [facility] [place], [address] BASIC METABOLIC Collected: 10/01/2017 Status: F Source: [place]EE PROFILE (BMP) 12:04 PM [facility] [place] TYPE CODE TESTS RESULT OUT OF RANGE REFERENCE UNITS LAB L501.0100 74-106 mg/dL Normal GLU 102 Result Comment: Fasting Glucose result from 100 to 125 mg/dL suggests IMPAIRED HOMEOSTASIS per A.D.A. criteria. Please note revised GLUCOSE reference range effective 2017. LAB L501.1000 7-18 mg/dL Normal BUN 17 LAB L501.1100 0.70-1.30 mg/dL Normal CREAT,SERUM 1.12 Result Comment: The validity of the calculated GFR AND GFRAA in patients over 70 years has not been determined. Clinical correlation is essential. LAB L501.1110 >60 mL/min Normal EST GFR 77 Result Comment: Non- GFR Calc LAB L501.1115 >60 mL/min Normal EST GFR - AA 93 Result Comment: GFR Calc LAB L501.1300 10-20 RATIO Normal BUN/CRE 15.2 LAB L501.2200 8.5-10.1 mg/dL CA Normal 8.6 LAB L501.5300 136-145 mmol/L NA Normal 140 LAB L501.5600 3.5-5.1 mmol/L K Normal 3.9 LAB L501.5900 98-107 mmol/L High CL 109 LAB L501.6100 21.0-32.0 mmol/L Normal CO2 24.0 LAB L501.6200 5-15 Normal GAP 7 Performed By: #### L500.2500 #### [facility] [address] [facility] [place], [address] CR - HISTORY AND Observed: 09/17/2017 Status: F Source: [place] PHYSICAL 2:20 PM [facility] [place] [facility] Cardiac Rehab [address] [place] [address] CR - History AND Physical MR#: [id number] Acct: [id number] Name: HU PEREZ Julissa Rep #: [id number] : 1975 41 From: Riccardo Hutchins DRUM BARKER OPERATOR, FIELD INSTALLER, BS PCP: MARAL AN DOS: 09/11/17 CR - History AND Physical - General Arrival date:: 09/11/17 Arrival time:: 07:38 Date of Admission: 09/11/17 Referring Physician: Dr. Haider Liu Primary Diagnosis: Unstable angina, PCI w/coronary stent - History of Present Cardiac Event Onset Date: Enter Onset Date of cardiac illnesses in Comment field below Angina:: Yes - 08/20/2017 PTCA:: Yes - 08/20/2017 Type of Symptoms:: unstable angina pectoris resulting in emergency room visit. Alexandra has a previous history of CAD status post coronary stenting to OM #1 in December 2016. Interventions with present event:: Re-do cardiac catheterization Were there any complications?: none - Medications Home Medications: Ambulatory Orders Medication Instructions Recorded Aspirin [Aspirin, Baby] 81 mg PO DAILY@0800 03/02/16 Brexpiprazole [Rexulti] 3 mg PO DAILY 01/24/17 - Allergies Allergies/Adverse Reactions: Allergies Penicillins Allergy (Verified 03/02/16 18:22) Unknown olanzapine [From Zyprexa] Adverse Reaction (Severe, Verified 08/15/17 09:11) aggresion/sleepiness - Sleep Disorder Evaluation Hx of Sleep Apnea: Yes Do you snore loudly (louder than talking or can be heard through closed doors)?: Yes Do you often feel tired/ fatigued/ sleepy during daytime?: Yes Has anyone observed you stop breathing during sleep?: No - Patient is treated for his RENETTA. History of Hypertension (for STOP score): Yes STOP Results: Positive Advanced Directives - Advanced Directives Power of Tuber Operator: No Living Will: No Advance Directives Information Provided: Yes Advance Directives on File: No DNR Order?:: No Past Medical History - Problems and Co-Morbidities Problems AND Co-Morbidities: Smoking - history of tobacco nicotine dependency, Dyslipidemia, Diabetes - Type II DM, Obesity, Hypertension, Depression - Acute, - - Schizophrenia (acute-inactive) - Past Medical Illness Past Medical Illness: Diabetes Other Medical Illnesses:: Acute chest pain (resolved), obstructive sleep apnea - Past Cardiac Illness Past Cardiac Illness: Ejection Fraction - 65%, Coronary Artery Disease, Previous PCI w/Stent - December 2016 Other Cardiac Illnesses:: atherosclerosis of marshall coronary artery wihtout angina pectoris, Acute Coroanry Syndrome, - Cardiology Procedures/Interventions Cardiology Procedures/Interventions: Angioplasty, PCI w/Stenting, Heart Catheterization, Echocardiogram - Past Surgical History Surgical History: appendectomy, cholecystectomy, - - Walking boot due to fracture - Family History Summary Additional Family History: father heart disease, brother CAD Review of Systems - Review of Systems Hints: Right click = Denies ([place]ash). Left click = Reports ([place]) Review of Present Symptoms: Reports: Shortness of Breath at Rest, Shortness of Breath with Exertion - sometimes, improved since quit smoking., Angina, Fatigue, Appetite - Normal, Appetite - Special Diet - making changes, but no specific diet plan.. Denies: Dizziness/Lightheadedness, Sleep - Normal - sleep to much, even wearing CPAP at night., Sexual Changes Risk Factor Assessment - Chief Complaint Chief Complaint: Patient is a 41 year old male who presents to cardiac rehab following recent acute angina and chest pain which resulted in an emergency room visit. Patient is under [facility] care of Dr. Haider Liu. The patient was rescheduled for a heart cath procedure which resulted in coronary stenting of marshall coronary artery x one. - Pulse Pulse Rate: 76 - SpO2 96% room air Pulse Rhythm: Regular - Hypertension How long have you been treated?: 1 year On medication(s)?: yes Blood Pressure Sitting - Right Arm: 100/72 - Stress Stress: Recent - pet last night. - Diabetes Diabetic History: Type II, Insulin Dependent Nutrition Referral for Diabetes: Yes - Obesity Height: 5 ft 4 in Weight:: 105.233 kg Weight in Pounds: 232.0 lbs Body Mass Index (BMI): 39.8 Nutritional Referral for Obesity: Yes - Patient could benefit from Diabetic Education and strucutred weight loss. - Physical Inactivity Physical Inactivity: Reg Exercise 30 min/day - Risk Stratification Risk Guidelines: Lowest Risk: Risk Factor for Dyslipidemia, Risk Factor for Hypertension, Risk Factor for Sedentary Lifestyle, Risk Factor for Depression, Moderate Risk: Risk Factor for Diabetes, Highest Risk: Risk Factor for Smoking, Risk Factor for Obesity - For Smoking Smoking Risk Guidelines: Smoking Low Risk: None or quit greater than 6 months ago. Smoking Moderate Risk: Smoker or quit 6 months or less ago. Smoking High Risk: Smoker - For Dyslipidemia Dyslipidemia Risk Guidelines: Low Risk: Moderate Risk: High Risk: 15-25% fat 25.1-29% fat >/= 30% fat. <7% sat fat 7-9% sat fat >9% sat fat. <150 mg chol 150-299 mg chol >/= 300 mg chol. LDL <100 LDL 100-129 LDL >/= 130. Chol/HDL ratio <5.0 Chol/HDL ratio 5.0-6.0 Chol/HDL ratio >6.0. Triglycerides <100 Triglycerides 100-149 Triglycerides >/= 150 - For Diabetes Mellitus Diabetes Risk Guidelines: Diabetes Low Risk: HgA1c <6.5% and/or FBG <120. Diabetes Moderate Risk: HgA1c 6.6-7.9% and/or FBG 120- 180. Diabetes High Risk: HgA1c >/= 8% and/or FBG >180 - For Obesity/Overweight Obesity/Overweight Risk Guidelines: Obesity Low Risk: BMI <25.0. Obesity Moderate Risk: BMI 25-29.9. Obesity High Risk: BMI >/= 30.0 - For Hypertension Hypertension Risk Guidelines: Hypertension Low Risk: Systolic <120 and Diastolic <80. Hypertension Moderate Risk: Systolic 120-139 and Diastolic 80-89. Hypertension High Risk: Systolic >/= 140 and Diastolic >/= 90 - For Sedentary Lifestyle Sedentary Lifestyle Risk Guidelines: Sedentary Lifestyle Low Risk: >/= 1,500 kcal/week. Sedentary Lifestyle Moderate Risk: 700-1,499 kcal/week. Sedentary Lifestyle High Risk: < 700 kcal/week - For Depression Depression Risk Guidelines: Depression Low Risk: Not clinically depressed. Depression Moderate Risk: Mildly depressed. Depression High Risk: Clinically depressed - Family History Family History: Family History (Last Updated 08/15/17 @ 09:53 by Gunner Lynch) Father Heart disease Brother CAD (coronary artery disease) Social History - Smoking History Smoking Status: Current some day smoker Years Smokin Packs Smoked per Day: 2 Hx Smoking Cessation Date: 09/07/2017 Hx Tobacco Use: Yes Hx Smoking Exposure: No - Alcohol Use Alcohol Usage: No - Substance Abuse Hx Substance Use: No - Occupation Occupation (List type of work in comments):: Employed Hours worked per day:: 5 Returned to work on:: 09/13/17 - Hobbies, Recreation, Social Activities Hobbies: Sports, Walking Recreational Activities: I am able to engage in all my recreational activities Marital Status - Status Marital Status: - Current Living Arrangements Living Environment:: Family, Spouse - Children How many children do you have?: 3 Do any of your children live nearby?: No - Safety Do you feel safe in your surroundings?: Yes - Assistance Do you need any assistance at home?: none 09/11/17 0805 <Electronically signed by Riccardo Hutchins CRT, RCP, BS> Date Riccardo Hutchins CRT, RCP, BS Outcome assessment reviewed. Exercise plan approved as documented. Treatment plan and goals support patient needs/abilities. Continue with current plan. I certify the patient demonstrates improvement and remains willing and capable of participation. the patient continues to benefit from cardiac rehab services/training. The patient may continue at current intensity, endurance and modality and progress per protocol. 09/17/17 1420 <Electronically signed by Haider Liu MD> Cosigner Signature: Date Haider Liu MD CC: Signed CARDIOLOGY VISIT Observed: 09/17/2017 Status: F Source: [place] REPORT 2:20 PM [facility] [place] [facility] [address] [place] [address] OFFICE VISIT Date of Service: 09/17/17 MR#: [id number] Acct: [id number] Name: HU PEREZ Rep #: [id number] : 1975 Provider: TYREE Juárez Age/Sex: 41/M Location: [facility] Status: Signed HPI HPI Details: HU PEREZ, is a 41 M who presents to the office today for a cardiovascular outpatient follow-up regarding recent emergency department visit. Patient is a history of coronary artery disease status post stenting to OM #1 in December 2016 and PTCA/YOHANA to prox RCA in July 2017, hyperlipidemia, and obstructive sleep apnea. Patient states stopping smoking approximately 3 weeks ago. Pt denies chest, arm, jaw, or neck discomfort. His exercise tolerance is stable. Pt denies symptoms of CHF, palpitations, lightheadedness, dizziness, near syncopal or syncopal episodes. Pt denies edema or claudication issues. Pt. denies orthopnea, PND, fever, chills, blood in urine, blood in stool, myalgia, or unexplainable fatigue. Intake Vital Signs09/17/17 Height 5 ft 4 in Intake Visit Reasons: s/p PCI Spot Welder Required: No Accompanied by: Is patient in pain?: No Allergies Penicillins Allergy (Verified 09/14/17 22:30) Unknown olanzapine [From Zyprexa] Adverse Reaction (Severe, Verified 09/14/17 22:30) aggresion/sleepiness Medications Aspirin [Aspirin, Baby] 81 mg PO DAILY@0800 03/02/16 [History Confirmed 09/11/17] Brexpiprazole [Rexulti] 3 mg PO DAILY 01/24/17 [History Confirmed 09/17/17] Metoprolol Tartrate [Lopressor (beta marely)] 12.5 mg PO BID #30 tab 01/26/17 [Rx Confirmed 09/11/17] Nitroglycerin [Nitrostat] 0.4 mg SUBLINGUAL Q5M PRN #1 bottle 01/26/17 [Rx Confirmed 09/11/17] insulin glargine (U-100) 100 unit/mL subcutaneous solution 30 units SC QHS 08/14/17 [History Confirmed 09/17/17] fenofibrate 54 mg tablet 54 mg PO QDAY 08/15/17 [History Confirmed 09/17/17] pantoprazole 40 mg tablet,delayed release 40 mg PO QDAY 08/15/17 [History Confirmed 09/17/17] atorvastatin 80 mg tablet 80 mg PO QDAY 09/11/17 [History Confirmed 09/11/17] lisinopril 5 mg tablet 5 mg PO QDAY 09/11/17 [History Confirmed 09/11/17] clopidogrel 75 mg tablet 75 mg PO DAILY #90 tab 09/17/17 [Rx Confirmed 09/17/17] metformin 500 mg tablet 500 mg PO BID 09/17/17 [History Confirmed 09/17/17] Ejection fraction %: 65 to 70 PFSH Medical History Chest pain (Acute) Fatigue (Acute) SOB (shortness of breath) (Acute) Dyspnea (Acute) Atherosclerosis of marshall coronary artery of marshall heart without angina pectoris (Chronic) ACS (acute coronary syndrome) (Acute) HTN (hypertension) (Chronic) DM2 (diabetes mellitus, type 2) (Chronic) Hyperlipidemia (Chronic) Depression (Acute) RENETTA (obstructive sleep apnea) (Acute) Schizophrenia (Acute) Hypertension (Chronic) Depression (Inactive) Schizophrenia (Inactive) Surgical History Presence of stent in coronary artery (Chronic 01/25/17) Family History Father Heart disease Brother CAD (coronary artery disease) Social History Smoking Status: Current some day smoker alcohol intake: never substance use type: does not use caffeine: Yes Type: carbonated beverages what type of physical activity do you participate in: other details: PT frequency: 3-4 times per week duration: 15-30 minutes/day seatbelt use: always do you feel safe at home: Yes ROS Const Const: Negative for fatigue, weakness, body ache, fever(s) or chills ENT ENT: Negative for dizziness Cardio Chest Pain: No Palpitations: Positive for No Edema: None Muscle aches with walking: None Resp Respiratory: Negative for SOB with activity, SOB at rest, SOB orthopnea\SOB lying down or paroxysmal nocturnal dyspnea GI GI: Negative nausea, black,tarry stools, bright, red blood in stools or vomiting blood/hematemesis : Negative for hematuria or frequent nighttime urination/ nocturia Musc Musc: Negative for muscle aches/ myalgia Neuro Neuro: Negative for weakness, Negative for dizziness, Negative for lightheadedness, Negative for near syncope, Negative for syncope, Negative for orthostatic symptoms Endo Endo: Negative for fatigue Cardiology Exam Const Appearance: cooperative, healthy appearing, comfortable and no acute distress Orientation: alert, awake and oriented x3 Head Head: normal to inspection Mouth: oral mucosae normal Neck Neck: no JVD and normal visual inspection Carotids: normal carotid upstroke Chest Chest inspection: normal inspection of the chest and normal respiratory effort Auscultation: Bilateral: Clear to Auscultation Cardio Rate: regular rate Rhythm: regular rhythm Heart sounds: S1 normal and S2 normal; negative rub or gallop GI GI: normal to inspection Neuro General: alert, awake, oriented x3 and CN's II-XI intact bilaterally Skin Skin: no rashes or lesions noted Extremities Pulses: Normal: Right Posterior Tibial Pulse, Left Posterior Tibial Pulse, Right Radial Pulse, Left Radial Pulse Lower Extremity Edema: None: Bilateral Psych Psychological: normal affect Assessment AND Plan 1. Atherosclerosis of marshall coronary artery of marshall heart without angina pectoris I25.10 PTCA/YOHANA to OM#1, mid RCA FFR (no PCI) 01/25/2017; PCI/YOHANA to RCA 08/20/2017; Plan - SANDRA Shannon Since his most recent stenting in July 2017 patient states feeling well. Patient denies any chest pain, arm pain, jaw pain, neck pain, shortness of breath, or fatigue suggestive of angina at this time. We will continue to monitor this. We will not make any medication regimen changes and will continue risk factor modification. He will begin cardiac rehab Orders Orders: 2. Essential hypertension I10 Plan - SANDRA Shannon Patient's blood pressures on the lower end of expected range. We will stop his isosorbide so that he can reinitiate metoprolol therapy. He will continue to monitor heart rate, blood pressure, and chest pain throughout the cardiac rehab. He was instructed to contact our office if he had any concerns. Orders Orders: 3. Hyperlipidemia, unspecified hyperlipidemia type E78.5 Plan - SANDRA Shannon Patient's most recent lipid panel from May 2017 showed cholesterol: 128, HDL: 30, LDL: 77, and triglycerides: 105. Patient will repeat lipid and liver profile in November 2017. He will continue current cholesterol-lowering medications. 4. Type 2 diabetes mellitus with complication, with long-term current use of insulin E11.8 Plan - SANDRA Shannon Patient will continue to follow-up with primary care physician for this. 5. Tobacco abuse Z72.0 Plan - SANDRA Shannon We will continue to promote and support smoking cessation. Plan Detail Other Orders Orders: Other Medications New: Refilled: Discontinued: Additional Comments - SANDRA Shannon Discussed the above patient with Dr. Liu, he agrees with the plan of care. Thank you for allowing us to participate in the patients plan of care, if you have any questions please do not hesitate to call. This note was generated using a voice recognition system and there may be incorrect words, spelling or punctuation that were not noted when reviewing the office note prior to saving. Follow Up 3 Months (JHR) 9 Months (GAN) Coding Level of Care Code Off vis,est,level 3 Diagnoses Atherosclerosis of marshall coronary artery of marshall heart without angina pectoris I25.10 Essential hypertension I10 Hypertension type: essential hypertension Hyperlipidemia, unspecified hyperlipidemia type E78.5 Hyperlipidemia type: unspecified Type 2 diabetes mellitus with complication, with long-term current use of insulin E11.8 Diabetes mellitus complication status: with unspecified complications Diabetes mellitus birthing nurse insulin use: with residential use Tobacco abuse Z72.0 Coding Level of Care Code Off vis,est,level 3 Diagnoses Atherosclerosis of marshall coronary artery of marshall heart without angina pectoris I25.10 Essential hypertension I10 Hypertension type: essential hypertension Hyperlipidemia, unspecified hyperlipidemia type E78.5 Hyperlipidemia type: unspecified Type 2 diabetes mellitus with complication, with long-term current use of insulin E11.8 Diabetes mellitus complication status: with unspecified complications Diabetes mellitus birthing nurse insulin use: with residential use Tobacco abuse Z72.0 09/17/17 1214 <Electronically signed by Gregorio Juárez RAILROAD WHEELS AND AXLE INSPECTOR-C> Date Gregorio Juárez [employer]ILRO[employer] WHEELS [employer] AXLE INSPECTOR-C 09/17/17 1420<Electronically signed by Haider Liu MD> Cosigner Signature: Date (if applicable) Haider Liu MD CC: MARAL AN 12 LEAD EKG PERFORMED Observed: 09/17/2017 Status: F Source: [place] [facility] [place] 10:27 AM [facility] [place] [address] [place] [address] 12 Lead EKG performed by [facility] [place] 09/17/17 1026 MR#: [id number] Acct: [id number] Name: HU PEREZ Rep #: [id number] : 1975 41 From: Gregorio FLORES Attending Dr: Gregorio Juárez NP Status: DEP AMB Ordering Dr: Gregorio Juárez Date: 09/17/17 Location: [facility] [place] Sex: M C Admitted: [facility] [place]/12 Lead EKG performed by [facility] [place] ECG Report Interpretation Sinus Rhythm WITHIN NORMAL LIMITSElectronically signed on 09/17/2017 at 13:58 by Haider Liu 09/17/17 1403 Date Gregorio FLORES CC: MARAL AN Date Dictated: 09/17/17 1026 Date Transcribed: 09/17/17 1026 Research Scholar: MERCEDES Signed GLUCOSE POC Collected: 09/08/2017 Status: F Source: [place] 7:12 AM [facility] REPOSITORY TYPE CODE TESTS RESULT OUT OF REFERENCE UNITS RANGE LAB [id number](LO 70-99 mg/dL INC) High Glucose POC 109 Performed By: #### [id number] #### ALEX POC Subsection [address] [id number] CBC W/ AUTO DIFF Collected: 09/08/2017 Status: F Source: [place] 5:39 AM [facility] REPOSITORY TYPE CODE TESTS RESULT OUT OF RANGE REFERENCE UNITS LAB [id number](L 3.6-11.0 E3/mcL OINC) High WBC 11.4 LAB 02209436(L 3.90-6.10 E6/mcL OINC) Normal RBC 4.39 LAB 24182787(L 13.5-18.0 G/DL OINC) Normal Hgb 13.5 LAB 88595963(L 42.0-52.0 % OINC) Low Hct 39.9 LAB 33950430(L 11.5-14.5 % OINC) Normal RDW 14.4 LAB [id number](L 27.0-31.0 pg OINC) Normal MCH 30.8 LAB 07296965(L 33.0-37.0 G/DL OINC) Normal MCHC 33.9 LAB 35865831(L 78.0-100.0 fL OINC) Normal MCV 90.9 LAB [id number](L 7.4-11.0 fL OINC) Normal MPV 9.4 LAB [id number](L 130-400 E3/mcL OINC) Normal Platelet 207 Performed By: #### [id number] #### ALEX RemHemo [address] [id number] AUTO DIFF Collected: 09/08/2017 Status: F Source: [place] 5:39 AM [facility] REPOSITORY Order Comment: Order Added by Discern Expert. TYPE CODE TESTS RESULT OUT OF RANGE REFERENCE UNITS LAB [id number](L 37.0-75.0 % OINC) Normal Neutro Auto 65.9 LAB 53465081(L 20.0-55.0 % OINC) Normal Lymph Auto 25.3 LAB 29852434(L 0.0-10.0 % OINC) Normal Yancey Auto 7.4 LAB 21546952(L 0.0-11.0 % OINC) Normal Eos Auto 0.9 LAB 79883830(L 0.0-2.0 % OINC) Normal Basophil Auto 0.5 LAB 22131938(L 1.4-6.5 E3/mcL OINC) High Neutro 7.5 Absolute LAB 28938881(L 1.2-3.4 E3/mcL OINC) Normal Lymph Absolute 2.9 LAB 99373786(L 0.0-0.7 E3/mcL OINC) High Yancey Absolute 0.8 LAB 05759525(L 0.0-0.7 E3/mcL OINC) Normal Eos Absolute 0.1 LAB 99595110(L 0.0-0.2 E3/mcL OINC) Normal Basophil 0.1 Absolute Performed By: #### [id number] #### ALEX RemHemo [facility] [place] [address] BMP Collected: 09/08/2017 Status: F Source: [place] 5:39 AM [facility] REPOSITORY TYPE CODE TESTS RESULT OUT OF RANGE REFERENCE UNITS LAB [id number](L 70-99 mg/dL OINC) High Glucose Lvl 112 LAB 11224891(L 7-18 mg/dL OINC) High BUN 24 LAB 5148002(LO 0.6-1.3 mg/dL INC) Normal Creatinine 1.0 LAB 11907528(L 5.4-30.0 ratio OINC) Normal BUN/Creat Ratio 24.0 LAB 04191752(L 8.4-10.2 mg/dL OINC) Calcium Normal Lvl 8.7 LAB 51698385(L 136-145 mEq/L OINC) Sodium Normal Lvl 140 LAB 87303809(L 3.5-5.1 mEq/L OINC) Normal Potassium Lvl 4.1 LAB 05215001(L 98-107 mEq/L OINC) High Chloride 108 LAB 44370405(L 24.0-30.0 mEq/L OINC) CO2 Normal 26.2 Performed By: #### [id number] #### ALEX [facility] [address] [place] [address] EGFR Collected: 09/08/2017 Status: F Source: [place] 5:39 AM [facility] REPOSITORY Order Comment: Order added by Discern Expert. TYPE CODE TESTS RESULT OUT OF RANGE REFERENCE UNITS LAB 50604963(LO mL/min/1.73 INC) m2 Normal eGFR >60 LAB 06019829(LO mL/min/1.73 INC) m2 Normal eGFR AA >60 Performed By: #### [id number] #### ALEX RemChem [facility] [place] [id number] HEP FUNC PANEL Collected: 09/08/2017 Status: F Source: [place] 5:39 AM [facility] REPOSITORY TYPE CODE TESTS RESULT OUT OF RANGE REFERENCE UNITS LAB [id number](L 10-40 Int._Unit/L OINC) Normal ALT 24 LAB 26964995(L 10-42 Int._Unit/L OINC) Normal AST 22 LAB [id number](L 3.2-5.0 G/DL OINC) Normal Albumin Lvl 3.8 LAB 01042777(L 2.0-4.0 G/DL OINC) Normal Globulin 2.8 LAB 95268611(L 1.1-1.9 ratio OINC) Normal A/G Ratio 1.4 LAB 92642650(L 42-121 Int._Unit/L OINC) Normal Alk Phos 101 LAB 94589381(L .00-.20 mg/dL OINC) High Bili Direct .24 LAB 07090603(L OINC) Normal Bili Indirect 1.2 Result Comment: No established ranges available for the Indirect Biliruben. LAB [id number](LOINC) 0.2-1.0 mg/dL High Bili Total 1.4 LAB 16265856(LOINC) 6.4-8.3 G/DL Normal Total Protein 6.6 Performed By: #### [id number] #### ALEX [facility] [address] [id number] TSH Collected: 09/08/2017 Status: F Source: [place] 5:39 AM [facility] REPOSITORY TYPE CODE TESTS RESULT OUT OF RANGE REFERENCE UNITS LAB [id number](LO 0.30-5.60 mIU/m INC) Normal TSH 1.74 Performed By: #### [id number] #### ALEX [facility] [address] [place] [address] HGBA1C Collected: 09/08/2017 Status: F Source: [place] 5:39 AM [facility] REPOSITORY TYPE CODE TESTS RESULT OUT OF REFERENCE UNITS RANGE LAB 440242421( 4.0-6.3 % LOINC) High Hemoglobin A1c 6.9 Performed By: #### [id number] #### ALEX Chemistry Manual Subsection [address] [place] [address] CK Collected: 09/07/2017 Status: F Source: [place] 11:56 PM [facility] REPOSITORY TYPE CODE TESTS RESULT OUT OF RANGE REFERENCE UNITS LAB [id number](LO 26-140 Int._Unit/L INC) Normal Total CK 115 Performed By: #### [id number] #### ALEX [employer] [address] [place] [address] TROPONIN-I Collected: 09/07/2017 Status: F Source: [place] 11:56 PM [facility] REPOSITORY TYPE CODE TESTS RESULT OUT OF RANGE REFERENCE UNITS LAB [id number](LO .00-.03 ng/mL INC) Normal <.01 Troponin-I Performed By: #### [id number] #### ALEX [employer] [address] [place] [address] GLUCOSE POC Collected: 09/07/2017 Status: F Source: [place] 8:44 PM [facility] REPOSITORY TYPE CODE TESTS RESULT OUT OF REFERENCE UNITS RANGE LAB [id number](LO 70-99 mg/dL INC) High Glucose POC 124 Performed By: #### [id number] #### ALEX POC Subsection [address] [place] [address] CK Collected: 09/07/2017 Status: F Source: [place] 5:55 PM [facility] REPOSITORY TYPE CODE TESTS RESULT OUT OF RANGE REFERENCE UNITS LAB [id number](LO 26-140 Int._Unit/L INC) Normal Total CK 100 Performed By: #### [id number] #### ALEX [employer] [address] [place] [address] TROPONIN-I Collected: 09/07/2017 Status: F Source: [place] 5:55 PM [facility] REPOSITORY TYPE CODE TESTS RESULT OUT OF RANGE REFERENCE UNITS LAB [id number](LO .00-.03 ng/mL INC) Normal <.01 Troponin-I Performed By: #### [id number] #### ALEX [employer] [address] [place] [address] GLUCOSE POC Collected: 09/07/2017 Status: F Source: [place] 4:13 PM [facility] REPOSITORY TYPE CODE TESTS RESULT OUT OF REFERENCE UNITS RANGE LAB [id number](LO 70-99 mg/dL INC) High Glucose POC 126 Performed By: #### [id number] #### ALEX POC Subsection [facility] [place] [address] UA COMPLETE Collected: 09/07/2017 Status: F Source: [place] 3:04 PM [facility] REPOSITORY TYPE CODE TESTS RESULT OUT OF RANGE REFERENCE UNITS LAB 08501106( Yellow LOINC) Normal UA Color Yellow LAB 36111087( Clear LOINC) Normal UA Clarity Clear LAB 12366278( Negative LOINC) Normal UA Glucose Negative LAB 02535439( Negative LOINC) Normal UA Bili Negative LAB 68476131( Negative LOINC) Normal UA Ketones Negative LAB 61063545( 1.003-1.030 LOINC) Normal UA Spec Grav 1.024 LAB 70131240( 4.6-8.0 LOINC) Normal UA pH 5.0 LAB 28745649( Negative LOINC) Normal UA Protein Negative LAB 25751945( mg/dL LOINC) UA Abnormal Urobilinogen 4.0 LAB 89536044( Negative LOINC) Normal UA Nitrite Negative LAB 70924595( Negative LOINC) Normal UA Blood Negative LAB 23415123( Negative LOINC) Normal UA Leuk Est Negative LAB 32100054( 0-3 /HPF LOINC) Normal UA RBC 0-3 LAB 62395874( 0-5 /HPF LOINC) Normal UA WBC 0-5 LAB 00456312( 0-5 /HPF LOINC) Normal UA Squam Epithelial 0-5 LAB 84737189( Trace /LPF LOINC) UA Mucous Abnormal Trace Performed By: #### [id number] #### ALEX Urinalysis Automated Subsection [facility] [place] [address] GLUCOSE POC Collected: 09/07/2017 Status: F Source: [place] 1:09 PM [facility] REPOSITORY TYPE CODE TESTS RESULT OUT OF RANGE REFERENCE UNITS LAB 87769127(LO 70-99 mg/dL INC) Normal Glucose POC 88 Performed By: #### [id number] #### ALEX POC Subsection [facility] [place] [address] BMP Collected: 09/07/2017 Status: F Source: [place] 11:31 AM [facility] REPOSITORY TYPE CODE TESTS RESULT OUT OF RANGE REFERENCE UNITS LAB [id number](L 70-99 mg/dL OINC) High Glucose Lvl 109 LAB 51748612(L 8.4-10.2 mg/dL OINC) Calcium Normal Lvl 9.2 LAB 83658813(L 136-145 mEq/L OINC) Sodium Normal Lvl 137 LAB 44688290(L 3.5-5.1 mEq/L OINC) Normal Potassium Lvl 3.9 LAB 31168306(L 98-107 mEq/L OINC) Chloride Normal 107 LAB 32926940(L 24.0-30.0 mEq/L OINC) Low CO2 21.2 LAB 41760635(L 7-18 mg/dL OINC) High BUN 20 LAB 4740377(LO 0.6-1.3 mg/dL INC) Normal Creatinine 1.1 LAB 68605704(L 5.4-30.0 ratio OINC) Normal BUN/Creat Ratio 18.2 Performed By: #### [id number] #### ALEX [facility] [address] [place] [address] CK Collected: 09/07/2017 Status: F Source: [place] 11:31 AM [facility] REPOSITORY TYPE CODE TESTS RESULT OUT OF RANGE REFERENCE UNITS LAB [id number](LO 26-140 Int._Unit/L INC) Normal Total CK 114 Performed By: #### [id number] #### ALEX [facility] [address] [place] [address] EGFR Collected: 09/07/2017 Status: F Source: [place] 11:31 AM [facility] REPOSITORY Order Comment: Order added by Discern Expert. TYPE CODE TESTS RESULT OUT OF RANGE REFERENCE UNITS LAB [id number](LO mL/min/1.73 INC) m2 Normal eGFR >60 LAB 97321323(LO mL/min/1.73 INC) m2 Normal eGFR AA >60 Performed By: #### [id number] #### ALEX [facility] [address] [place] [address] MAGNESIUM Collected: 09/07/2017 Status: F Source: [place] 11:31 AM [facility] REPOSITORY TYPE CODE TESTS RESULT OUT OF RANGE REFERENCE UNITS LAB 76362944(L 1.7-2.8 mg/dL OINC) Normal Magnesium 2.0 Performed By: #### [id number] #### [place] [address] TROPONIN-I Collected: 09/07/2017 Status: F Source: [place] 11:31 AM [facility] REPOSITORY TYPE CODE TESTS RESULT OUT OF RANGE REFERENCE UNITS LAB [id number](LO .00-.03 ng/mL INC) Normal <.01 Troponin-I Performed By: #### [id number] #### [place] [address] CKMB Collected: 09/07/2017 Status: F Source: [place] 11:31 AM [facility] REPOSITORY TYPE CODE TESTS RESULT OUT OF RANGE REFERENCE UNITS LAB [id number](LO 0.0-5.0 ng/mL INC) Normal CK MB 0.9 Performed By: #### [id number] #### [place] [address] CBC W/ AUTO DIFF Collected: 09/07/2017 Status: F Source: [place] 11:02 [facility] REPOSITORY TYPE CODE TESTS RESULT OUT OF RANGE REFERENCE UNITS LAB [id number](L 3.6-11.0 E3/mcL OINC) High WBC 12.2 LAB 56374061(L 3.90-6.10 E6/mcL OINC) Normal RBC 4.57 LAB 21488212(L 13.5-18.0 G/DL OINC) Normal Hgb 14.0 LAB 21838525(L 42.0-52.0 % OINC) Low Hct 41.4 LAB 36309703(L 11.5-14.5 % OINC) Normal RDW 14.0 LAB 33751551(L 27.0-31.0 pg OINC) Normal MCH 30.7 LAB 59784392(L 33.0-37.0 G/DL OINC) Normal MCHC 33.9 LAB 90776946(L 78.0-100.0 fL OINC) Normal MCV 90.6 LAB 67088861(L 7.4-11.0 fL OINC) Normal MPV 9.2 LAB 72403288(L 130-400 E3/mcL OINC) Normal Platelet 225 Performed By: #### [id number] #### ALEX [facility]ema[facility]emo [facility] [place] [address] AUTO DIFF Collected: 09/07/2017 Status: F Source: [place] 11:02 [facility] REPOSITORY Order Comment: Order Added by Discern Expert. TYPE CODE TESTS RESULT OUT OF RANGE REFERENCE UNITS LAB [id number](L 37.0-75.0 % OINC) Normal Neutro Auto 74.4 LAB 32022195(L 20.0-55.0 % OINC) Low Lymph Auto 18.7 LAB 62529132(L 0.0-10.0 % OINC) Normal Yancey Auto 5.9 LAB 12394187(L 0.0-11.0 % OINC) Normal Eos Auto 0.4 LAB 35410604(L 0.0-2.0 % OINC) Normal Basophil Auto 0.6 LAB 35540771(L 1.4-6.5 E3/mcL OINC) High Neutro 9.0 Absolute LAB 76998818(L 1.2-3.4 E3/mcL OINC) Normal Lymph Absolute 2.3 LAB 10514309(L 0.0-0.7 E3/mcL OINC) Normal Yancey Absolute 0.7 LAB 54004131(L 0.0-0.7 E3/mcL OINC) Normal Eos Absolute 0.1 LAB 26857112(L 0.0-0.2 E3/mcL OINC) Normal Basophil 0.1 Absolute Performed By: #### [id number] #### ALEX CheemaHemo [facility] [place] [id number] PT Collected: 09/07/2017 Status: F Source: [place] 11:02 [facility] REPOSITORY TYPE CODE TESTS RESULT OUT OF RANGE REFERENCE UNITS LAB [id number](LO 1.0-1.2 INC) Normal INR 1.1 Result Comment: INR Recommended Therapeuptic Ranges: Prophylaxis/treatment of DVT and PE?2.0-3.0 Prevention of systemic embolism?.2.0-3.0 Mechanical prosthetic values?2.5-3.5 CRITICAL VALUES?.>4.0 LAB 66171247(LOINC) 11.6-14.6 second(s) Normal 13.3 PT Performed By: #### [id number] #### ALEX Hematology Automated Subsection [address] [place] [address] PTT Collected: 09/07/2017 Status: F Source: [place] 11:02 AM [facility] TYPE CODE TESTS RESULT OUT OF RANGE REFERENCE UNITS LAB [id number](LO 23.2-36.4 second(s) INC) Normal PTT 29.1 Performed By: #### [id number] #### ALEX Hematology Automated Subsection [address] [place] [address] PTT CONTROL RATIO Collected: 09/07/2017 Status: F Source: [place] 11:02 [facility] Order Comment: Order added by Discern Expert. TYPE CODE TESTS RESULT OUT OF RANGE REFERENCE UNITS LAB [id number](LO 0.8-1.2 ratio INC) Normal PTT Ratio 1.0 Performed By: #### [id number] #### ALEX Hematology Automated Subsection [address] [place] [address] D-DIMER Collected: 09/07/2017 Status: F Source: [place] 11:02 [facility] TYPE CODE TESTS RESULT OUT OF RANGE REFERENCE UNITS LAB [id number](LO <=0.50 mg/L FEU INC) Normal D-Dimer <0.22 Result Comment: Normal D Dimer level indicates no Deep Vein Thrombosis (DVT) or Pulmonary Embolism (PE). Elevated D Dimer level indicates additional studies and clinical assessments are indicated to conclude diagnosis of Deep Vein Thromobsis (DVT) or Pulmonary Embolism (PE). Performed By: #### [id number] #### ALEX Hematology Automated Subsection [address] [place] [address] XR CHEST AP PORTABLE Observed: 09/07/2017 Status: F Source: [place] 10:57 AM [facility] Exam Date/Time: 09/07/2017 11:06 EST Reason for Exam: Chest pain Report XR CHEST AP PORTABLE CLINICAL STATEMENT: Chest pain. COMPARISON: August 05, 2017. TECHNIQUE: Single portable upright view. FINDINGS: The cardiomediastinal silhouette is stable. Heart size is again borderline to mildly enlarged. The lungs are expanded with no airspace consolidation, pneumothorax or sizable pleural effusion. No obvious acute osseous abnormality. Pulmonary vascularity is within normal limits. IMPRESSION: Stable chest with borderline cardiomegaly. No acute pulmonary findings. FINAL REPORT Dictated: 09/07/2017 12:09 pm Ed Walsh DO Signed (Electronic Signature): 09/07/2017 12:09 pm Signed by: Ed Walsh DO Technologist: HLR CARDIOLOGY VISIT Observed: 08/29/2017 Status: F Source: [place] 2:08 PM [facility] [place] [facility] [address] [place] [address] OFFICE VISIT Date of Service: 08/15/17 MR#: [id number] Acct: [id number] Name: HU PEREZ Rep #: [id number] : 1975 Provider: TYREE Juárez Age/Sex: 41/M Location: [facility] [place] Status: Signed HPI per PCP was in [facility]: Details: HU PEREZ, is a 41 M who presents to the office today for a cardiovascular outpatient follow-up regarding recent emergency department visit. Patient is a history of coronary artery disease status post stenting to OM #1 in December 2016, hyperlipidemia, and obstructive sleep apnea. He also has a history of tobacco nicotine dependence. Pt. state having having chest pain that wakes him up from sleep. He rates this pain a 7/10. He denies any diaphoresis. He states some wheezing and numbness. This pain lasts for up to one hour. The pain usually resolves on its own in approximately 1 hour. The pain lasted over one hour recently which prompted him to present to [facility]. Patient's evaluation in the emergency department was negative. His EKG did not show any acute changes and his troponin enzymes were negative. He did not undergo any stress test and his imdur was increased to 60mg. Pt denies arm, jaw, or neck discomfort. Patient states getting some chest pain during cardiac rehab at times. His exercise tolerance is stable, though decreased lately d/t chest pain. Pt denies symptoms of CHF, palpitations, near syncopal or syncopal episodes. Pt denies edema or claudication issues. Pt. denies orthopnea, PND, fever, chills, blood in urine, blood in stool, or myalgia. Pt. states some lightheaded/dizziness after standing in one position for a long time. Pt. states feeling fatigued majority of day despite long restful night and using his CPAP machine. Intake Vital Signs08/15/17 Height 5 ft 4 in 08/15/17 Weight: 232 lb 08/15/17 Body Mass Index (BMI) 39.8 08/15/17 Blood Pressure 100/72 08/15/17 Blood Pressure Location Lt brachial Intake Visit Reasons: per PCP was in [facility] Spot Welder Required: No Accompanied by: Is patient in pain?: No Allergies Penicillins Allergy (Verified 03/02/16 18:22) Unknown olanzapine [From Zyprexa] Adverse Reaction (Severe, Verified 08/15/17 09:11) aggresion/sleepiness Medications Aspirin [Aspirin, Baby] 81 mg PO DAILY@0800 03/02/16 [History Confirmed 08/15/17] Brexpiprazole [Rexulti] 3 mg PO DAILY 01/24/17 [History Confirmed 08/15/17] Clopidogrel Bisulfate [Plavix] 75 mg PO DAILY #60 tab 01/26/17 [Rx Confirmed 08/15/17] Metoprolol Tartrate [Lopressor (beta marely)] 12.5 mg PO BID #30 tab 01/26/17 [Rx Confirmed 08/15/17] Nitroglycerin [Nitrostat] 0.4 mg SUBLINGUAL Q5M PRN #1 bottle 01/26/17 [Rx Confirmed 08/15/17] insulin glargine 100 unit/mL subcutaneous solution See Label Instructions SC ONCE 08/14/17 [History Confirmed 08/15/17] fenofibrate 54 mg tablet 54 mg PO QDAY 08/15/17 [History Confirmed 08/15/17] isosorbide mononitrate ER 60 mg tablet,extended release 24 hr 30 mg PO BID #30 tab 08/15/17 [Rx Confirmed 08/15/17] metformin 1,000 mg tablet 500 mg PO BID tab 08/15/17 [History Confirmed 08/15/17] pantoprazole 40 mg tablet,delayed release 40 mg PO QDAY 08/15/17 [History Confirmed 08/15/17] Ejection fraction %: 65 to 70 PFSH Medical History Chest pain (Acute) Presence of stent in coronary artery (Chronic 01/25/17) Fatigue (Acute) SOB (shortness of breath) (Acute) Dyspnea (Acute) Atherosclerosis of marshall coronary artery of marshall heart without angina pectoris (Chronic) ACS (acute coronary syndrome) (Acute) HTN (hypertension) (Chronic) DM2 (diabetes mellitus, type 2) (Chronic) Hyperlipidemia (Chronic) Depression (Acute) RENETTA (obstructive sleep apnea) (Acute) Schizophrenia (Acute) Hypertension (Chronic) Depression (Inactive) Schizophrenia (Inactive) Family History Father Heart disease Brother CAD (coronary artery disease) Social History Smoking Status: Current some day smoker alcohol intake: never substance use type: does not use caffeine: Yes Type: carbonated beverages what type of physical activity do you participate in: other details: PT frequency: 3-4 times per week duration: 15-30 minutes/day seatbelt use: always do you feel safe at home: Yes ROS Const Const: Positive for fatigue; negative for weakness, body ache, fever(s) or chills ENT ENT: Positive for dizziness Cardio Chest Pain: Yes Palpitations: Positive for No Edema: None Muscle aches with walking: None Resp Respiratory: Negative for SOB with activity, SOB at rest, SOB orthopnea\SOB lying down or paroxysmal nocturnal dyspnea GI GI: Negative nausea, black,tarry stools, bright, red blood in stools or vomiting blood/hematemesis : Negative for hematuria or frequent nighttime urination/ nocturia Musc Musc: Negative for muscle aches/ myalgia Neuro Neuro: Negative for weakness, Positive for lightheadedness, Negative for near syncope, Negative for syncope, Negative for orthostatic symptoms, Positive for dizziness Endo Endo: Positive for fatigue Cardiology Exam Const Appearance: cooperative, healthy appearing, comfortable and no acute distress Orientation: alert, awake and oriented x3 Head Head: normal to inspection Mouth: oral mucosae normal Neck Neck: no JVD and normal visual inspection Carotids: normal carotid upstroke Chest Chest inspection: normal inspection of the chest and normal respiratory effort Auscultation: Bilateral: Clear to Auscultation Cardio Rate: regular rate Rhythm: regular rhythm Heart sounds: S1 normal and S2 normal; negative rub or gallop GI GI: normal to inspection Neuro General: alert, awake, oriented x3 and CN's II-XI intact bilaterally Skin Skin: no rashes or lesions noted Extremities Pulses: Normal: Right Posterior Tibial Pulse, Left Posterior Tibial Pulse, Right Radial Pulse, Left Radial Pulse Lower Extremity Edema: None: Bilateral Psych Psychological: normal affect Assessment AND Plan 1. Atherosclerosis of marshall coronary artery of marshall heart without angina pectoris I25.10 PTCA/YOHANA to OM#1, mid RCA FFR (no PCI) 01/25/2017; Plan - SANDRA Shannon Patient's RCA was evaluated with FFR which did not meet criteria for PCI. His stress echocardiogram in February 2017 after his PCI was negative for myocardial induced ischemia. Patient has multiple episodes of chest pain during cardiac rehab and episodes that have woken him up from sleep. We will further evaluate this with a left heart catheterization. Depending on the results of this test further recommendation to be made. Patient was asked to hold off on cardiac rehab until further evaluation with left heart catheterization. 2. Essential hypertension I10 Plan - SANDRA Shannon Patient blood pressures is on the lower end of expected range. Due to his most recent emergency department visit it was recommended that his Imdur increased to 60 mg. He was asked to take 30 mg twice a day to avoid any further hypotension. We will continue to monitor this. 3. Hyperlipidemia, unspecified hyperlipidemia type E78.5 Plan - SANDRA Shannon Patient's most recent lipid panel from May 2017 showed cholesterol: 128, HDL: 30, LDL: 77, and triglycerides: 105. Patient is scheduled for repeat lipid and liver profile in November 2017. We will wait for the results of these tests for further recommendations. He will continue current cholesterol-lowering medication. 4. RENETTA (obstructive sleep apnea) G47.33 Plan - SANDRA Shannon Patient continues to have fatigue despite using CPAP machine. He was advised to continue with CPAP usage. We will continue to monitor this. Plan Detail Other Medications New: isosorbide mononitrate ER swallow whole with glass of water;30 mg (1/2 x 60 mg) PO BID do not crush/chew /dissolve /cut/break Discontinued: Additional Comments - SANDRA Shannon Patient will keep October [address] Liu for further evaluation. Discussed the above patient with Dr. Liu, he agrees with the plan of care. Thank you for allowing us to participate in the patients plan of care, if you have any questions please do not hesitate to call. This note was generated using a voice recognition system and there may be incorrect words, spelling or punctuation that were not noted when reviewing the office note prior to saving. Coding Level of Care Code Off vis,est,level 3 Diagnoses Atherosclerosis of marshall coronary artery of marshall heart without angina pectoris I25.10 Essential hypertension I10 Hypertension type: essential hypertension Hyperlipidemia, unspecified hyperlipidemia type E78.5 Hyperlipidemia type: unspecified RENETTA (obstructive sleep apnea) G47.33 08/22/17 1212 <Electronically signed by Gregorio RIBEIROC> Date Gregorio Juárze NP-C 08/29/17 1408<Electronically signed by Haider Liu MD> Cosigner Signature: Date (if applicable) Haider Liu MD CC: MARAL AN ALLERGIES ALLERGIES DATE TYPE / CODE NAME / CODE REACTION SEVERITY SOURCE 08/06/2018 Drug Penicillins/C97289 Unknown Unknown [place] Allergy/416 0476(RXNORM) [facility] 202720([facility] ED CT) Repository 08/06/2018 Drug olanzapine/P061890 aggresion/sleep [place] Allergy/416 204(RXNORM) [facility] Community 343108([facility] ED CT) Repository 06/14/2015 DRUG OLANZAPINE [facility] INGREDI/419 Three Repository 703925(SNOM ED CT) 07/17/2014 Drug PENICILLINS [facility] Class/51563 Three Repository 1003(SNOMED CT) Drug/385059 penicillins Swelling Severe Scientologist 003([facility]) System Repository Drug/772010 ZyPREXA [id number] Severe Scientologist 003([facility] NavPrescience CT) System Repository ENCOUNTERS ENCOUNTERS ADMIT/DISCHARGE ACCOUNT NUMBER ADMITTING ENCOUNTER LOCATION SOURCE CLASS 08/21/2018 [id number] [facility]ulatory [facility] ding:CLSP Repository 08/19/2018/08/19/19 [id number] [place], Ambulatory Lee Lee [address] [facility] ding:PCURoom Repository : WVM528Bqf: 1 08/19/2018 [id number] [place], Ambulatory BMSBuilding: [place] Mouna [facility]MS.[facility] Repository 08/19/2018 [id number] [place], Ambulatory BMSBuilding: [place] Mouna BMS.CF.[facility] Repository 08/18/2018/08/19/[id number] [place], Emergency [address] Regional ding: Health System EDRoom: WR Repository 08/18/2018 [id number] Ambulatory [address] [place] [address] Repository 08/12/2018/08/12/19 [id number] Ambulatory BMSBuilding: [place] 19 BMS.[facility] Repository 07/30/2018/07/30/[id number] Noemi, Emergency [address] ding: Health System EDRoom: WR Repository 07/30/2018 [id number] Ambulatory [address] [place] [address] Repository 06/19/2018 [id number] Ambulatory BMSBuilding: Lee BMS.[facility] Repository 04/24/2018/05/30/20 [id number] Wyl[place], [address] ding:[facility] B Repository 04/24/[id number] Repository 04/10/2018/04/10/[id number] ding:[facility] Repository 04/10/2018 [id number] Ambulatory [address] [place] [address] Repository 04/09/2018 [id number] Ambulatory [facility] ding:Claremo Repository nt Medic 04/09/2018/04/09/20 [id number] [place], Ambulatory [address] ding:[place] Repository nt MedicRoom: Room 1 04/05/2018/04/05/20 [id number] Wylie, [address] ding:[facility] System Repository 04/05/2018 [id number] Ambulatory 9509 [facility] Repository 02/26/2018/02/27/20 [id number] [facility] [address] [facility] System EDRoom: WR Repository 02/26/2018 [id number] Ambulatory [address] [place] [address] Repository 02/02/2018/02/04/20 [id number] [place], Emergency [facility] [address] [facility] ding: Health System EDRoom: WR Repository 02/02/2018 [id number] Ambulatory [address] [place] [address] Repository 01/11/2018 [id number] Ambulatory Building:[facility] Repository 01/06/2018/01/07/[id number] Guilherme, [address] Regional ding: Health System EDRoom: WR Repository 01/06/2018 [id number] Ambulatory [address] [place] [address] Repository 12/20/2017/12/21/19 [id number] Ambulatory BMSBuilding: Lee 18 BMS.[facility] Repository 12/17/2017/12/18/19 [id number] Ambulatory Lee [address] ding:CR Repository 12/17/2017 [id number] Ambulatory [facility] Repository 12/15/2017/12/16/19 [id number] [facility], Emergency [address] ding: Health System EDRoom: WR Repository 12/02/2017/12/04/19 [id number] Jorgito, Ambulatory [address] Regional ding:[facility] System SRoom: Repository 0320Bed: 11/23/2017/11/27/19 [id number] Ambulatory [place] [address] [place] [address] ding:CR Repository 11/06/2017 [id number] Ambulatory BMSBuilding: [place] BMS.[facility] Repository 10/26/2017/10/28/19 [id number] Ambulatory Lee Lee [address] [place] [address] ding:CR Repository 10/09/2017/10/10/19 [id number] Wylie, Ambulatory [address] ding:Elise Repository nt MedicRoom: Room 3 10/02/2017/10/03/[id number] ding:[facility] System Repository 10/01/2017 [id number] Ambulatory [facility] ding:LAB Repository 09/26/2017/09/26/19 [id number] Ambulatory [address] ding:CR Repository 09/17/2017/09/17/19 [id number] Ambulatory BMSBuilding: [place] 18 BMS.[facility] Repository 09/14/2017 [id number] Ambulatory BMSBuilding: [place] BMS.[facility] Repository 09/11/2017 [id number] Ambulatory [facility] ding:CR Repository 09/09/2017 [id number] Ambulatory [facility] ding:CR Repository 09/07/2017/09/08/[id number] ding:[facility] ERoom: Repository 0306Bed: 08/27/2017/08/27/19 [id number] Ambulatory [address] Urology [facility] Repository ing:AMUAshla ia 08/27/2017/08/27/19 [id number] Ambulatory Building:[address] Repository 08/15/2017/08/15/19 [id number] Ambulatory BMSBuilding: [place] 18 BMS.[facility] Repository PAYERS PAYERS ENCOUNTER GUARANTOR PAYER SUBSCRIBER SOURCE 08/21/2018 HU E [id number] E Primary HU E SOURSDOB: [facility], Insurance:CAREURC [id number] 10252Juw: shahid Number: [facility] [id number] Repository (HP) Date:2018-08-12 [address]ATTN: [place] [address]RY: 08/21/2018 Secondary NOT GIVENUNK [place] Insurance:SELF PAY [facility] Number: Effective Repository Date:2018-08-12 08/19/2018 HU E [id number] E Primary HU E SOURSDOB: [facility], Insurance:CARESOURCEP [id number] [facility] 31548Lwj: olicy Number: Hospital [id number] Repository (HP) Date:2018-08-19P [address]ATTN[place] [address]XF: 08/19/2018 Secondary NOT GIVENUNK [place] Insurance:SELF PAY [facility] Number: Effective Repository Date:2018-08-19 08/19/2018 HU E [id number] E Primary HU E SOURSDOB: [facility], Insurance:CARESOURCEP [id number] [facility] 50932Zrf: olicy Number: Hospital [id number] Repository (HP) Date:2018-08-19P [address]ATTN[place] [address]CA: 08/19/2018 Secondary NOT GIVENUNK [place] Insurance:SELF PAY [facility] Number: Effective Repository Date:2018-08-19 08/19/2018 HU E [id number] E Primary HU E SOURSDOB: [facility], Insurance:CARESOURCEP [id number] [place] 0783205Tel: olicy Number: Hospital [id number] Repository (HP) Date:2018-08-19P [address]ATTN: [place] [address]IB: 08/19/2018 Secondary NOT GIVENUNK [place] Insurance:SELF PAY [facility] Number: Effective Repository Date:2018-08-19 08/18/2018 HU E SOURSDOB: Primary HU E SOURSDOB: Scientologist E Insurance:CARESOURCE [id number] [facility] Number: E MAIN System [place] Repository [address]Ljx: Date:2018-08-18Tel: 2100-12-31plan () Name:CD:[id number] ()Tel: 000) [address], [place] 000-[address] () [id number]: 08/18/2018 HU SOURSDOB: Primary HU SOURSDOB: [place] E [facility] [id number] [facility] Number: E MAIN Repository [place] [id number]: [id number] [place], [place] Date:Plan [id number]: () Name:Health [address] [place] [address] () [id number]: 08/12/2018 HU E [id number] E Primary HU E [facility] Insurance:CARESOURC [id number] 39819Iee: [facility] Number: Hospital [id number] Repository () Date:2017-12-20 [address]ATTN: [place] [address]LV: 08/12/2018 Secondary NOT GIVENUNK [place] Insurance:SELF PAY [facility] Number: Effective Repository Date:2018-08-09 07/30/2018 HU E SOURSDOB: Primary HU E SOURSDOB: Scientologist E Insurance:CARESOURCE [id number] [facility] Number: E MAIN System [place] Effective [place] Repository [address]Xwt: Date:2018-07-30Tel: 2100-12-31Plan () Name:CD:[id number] ()Tel: 000) [address], [place] 000[address] () [id number]: 07/30/2018 Secondary HU E SOURSDOB: Scientologist Insurance:BWCPolicy [id number] [facility] Number: Effective E MAIN System Date:2018-07-30 - [place] Repository [id number] [address]Ays: Name:Worker's Compensation (HP) (WP) 07/30/2018 HU SOURSDOB: Primary HU SOURSDOB: [place] E Insurance:[facility] [id number] [place] [address] Number: E MAIN Repository [place] [id number]: [id number] [place] Date:Plan [id number]: () Name:Health [address] [place] [address] () [id number]: 06/19/2018 HU E [id number] E Primary HU E SOURSDOB: [facility], Insurance:[facility] [id number] 23963Yme: [facility] Number: [facility] [id number] Repository () Date:2017-09-17 [address]ATTN: [place] [address]SE: 06/19/2018 Secondary NOT GIVENUNK [place] Insurance:SELF PAY [facility] Number: Effective Repository Date:2017-09-17 04/24/2018 HU E SOURSDOB: Primary HU E SOURSDOB: Scientologist E Insurance:[facility] [id number] [facility] Number: E MAIN System [place] [id number]: Effective [place] Repository Date:2018-04-16 [id number]: () [id number] Name:CD:[id number] ()Tel: (805) [address] [place] [address] [phone] (WP) [id number]: 04/24/2018 HU SOURSDOB: Primary HU SOURSDOB: Mar[place] E Insurance:[facility] [id number] [place] [address] Number: E MAIN Repository [place] [id number]: [id number], [place] Date:Plan [id number]: () Name:HealthP [address] [place] [address] () [id number]: 04/10/2018 HU E SOURSDOB: Primary HU E SOURSDOB: Scientologist E Insurance:[facility] [id number] [place] [address] Number: E MAIN System [place] [id number]: [place], [place] Repository Date:2018-04-10 [id number]: () [id number] Name:CD:[id number] ()Tel: (000) [address] [place] [address] [phone] (WP) [id number]: 04/10/2018 HU SOURSDOB: Primary HU SOURSDOB: Marble E Insurance:[facility] [id number] [place] [address] Number: E MAIN Repository [place] [id number]: [id number], [place] Date:Plan [id number]: () Name:HealthP [address] [place] [address] () [id number]: 04/09/2018 HU E SOURSDOB: Primary HU E SOURSDOB: Scientologist E Insurance:[id number] [facility] E MAIN System [place] [id number]: [place], [place] Repository Number: Effective [id number]: (HP) Date:2018-04-09 5812-17-71Gdgq ()Tel: (755) Name:CD:[id number] O [phone] () [address] [place] [address]GV: 04/09/2018 HU E SOURSDOB: Primary HU E SOURSDOB: Scientologist E Insurance:[facility] [id number] [facility] E MAIN System [place] [id number]: [place], [place] Repository Number: Effective [id number]: (HP) Date:2017-10-09 - 1826-55-62Rpnf ()Tel: (097) Name:CD:[id number] [phone] () [address] [address]VX: 04/05/2018 HU E SOURSDOB: Primary HU E SOURSDOB: Scientologist E Insurance:[facility] [id number] [place] [address] Number: E MAIN System [place] [id number]: Effective [place] Repository Date:2018-04-05 [id number]: () 8415-02-00Uhcn Name:CD:[id number] ()Tel: (266) [address] [place] [address] [phone] (WP) [id number]: 04/05/2018 HU SOURSDOB: Primary HU SOURSDOB: Marble E Insurance:[facility] [id number] [facility] Number: E MAIN Repository [place] [id number]: [id number], [place] Date:Plan [id number]: () Name:HealthP [address] [place] [address] () [id number]: 02/26/2018 HU E SOURSDOB: Primary HU E SOURSDOB: Scientologist E Insurance:[facility] [id number] [place] [address] Number: E MAIN System [place] [id number]: Effective [place] Repository Date:2018-02-26 [id number]: () [id number]-31plan Name:CD:[id number] ()Tel: (112) [address] [place] [address] [phone] () [id number]: 02/26/2018 HU SOURSDOB: Primary HU SOURSDOB: Marble E Insurance:[facility] [id number] [facility] Number: E MAIN Repository [place] [id number]: [id number], [place] Date:Plan [id number]: () Name:HealthP [address] [place] [address] () [id number]: 02/02/2018 HU E SOURSDOB: Primary HU E SOURSDOB: Scientologist E Insurance:[facility] [id number] [place] [address] Number: E MAIN System [place] [id number]: Effective [place] Repository Date:2018-02-02 [id number]: () [id number] Name:CD:[id number] ()Tel: (891) [address], [place] [phone] () [id number]: 02/02/2018 HU SOURSDOB: Primary HU SOURSDOB: Marble E Insurance:[facility] [id number] [facility] Number: E MAIN Repository [place] [id number]: [id number] [place] Date:Plan [id number]: () Name:Health [address] [place] [address] () [id number]: 01/11/2018 HU E SOURSDOB: Primary HU E SOURSDOB: [facility] Insurance:[facility] [id number] Three Repository [address], [place], [place] [address]Jrt: Number: [place] [address]Llc: [id number] () Date:5849-71-67EE [address] () [address] [place] [address]SL: 01/06/2018 HU E SOURSDOB: Primary HU E SOURSDOB: Scientologist E Insurance:[facility] [id number] [facility] Number: E MAIN System [place] [id number]: Effective [place] Repository Date:2018-01-06 [phone]: () 5905-69-53Tcxm31plan Name:CD:[id number] ()Tel: (417) [address], [place] [phone] (WP) [id number]: 01/06/2018 HU SOURSDOB: Primary HU SOURSDOB: [place] E Insurance:CaresourceP [id number] [facility] Number: E MAIN Repository [place] [id number]: [id number] [place] Date:Plan [id number]: () Name:[facility] [address] [place] [address] () [id number]: 12/20/2017 HU E [id number] E Primary HU E SOURSDOB: [facility], Insurance:CARESOURCEP [id number] [facility] 82001Qdo: olic Number: [facility] [id number] Repository () Date:2017-09-17 [address]ATTN: [place] [address]PV: 12/20/2017 Secondary NOT GIVENUNK [place] Insurance:SELF PAY [facility] Number: Effective Repository Date:2017-12-20 12/17/2017 HU E [id number] E Primary HU E SOURSDOB: [facility], Insurance:CARESOURCEP [id number] [facility] 225[address]Cxd: olicy Number: [facility] [id number] Repository () Date:2017-09-11 [address]ATTN: [place] [address]KY: 12/17/2017 Secondary NOT GIVENUNK [place] Insurance:SELF PAY [facility] Number: Effective Repository Date:2017-11-27 12/17/2017 HU E [id number] E Primary HU E SOURSDOB: [facility], Insurance:CARESOURCEP [id number] [facility] [address]Ihz: olicy Number: [facility] [id number] Repository () Date:2017-12-17P [address]ATTN: [place] [address]JK: 12/17/2017 Secondary NOT GIVENUNK [place] Insurance:SELF PAY [facility] Number: Effective Repository Date:2017-12-17 12/15/2017 HU E SOURSDOB: Primary HU E SOURSDOB: Scientologist E Insurance:[employer]OURCE [id number] [place] [address] Number: E MAIN System [place] [id number]: Effective [place] Repository Date:2017-12-15 [id number]: () 9868-94-56Pzil-12-31plan Name:CD:[id number] ()Tel: (717) [address], [place] [phone] (WP) [id number]: 12/02/2017 UH E SOURSDOB: Primary HU E SOURSDOB: Scientologist E Insurance:[facility] [id number] [place] [address] Number: E MAIN System [place] [id number]: Effective [place] Repository Date:2017-12-02 [id number]: () 3818-06-72Bpxa-12-31plan Name:CD:[id number] ()Tel: (223) [address], [place] [phone] (WP) [phone]: 11/23/2017 HU E [id number] E Primary [facility]CARESOURCEP [id number] [id number]: [facility] Number: Hospital [id number] Repository (HP) Date:2017-09-11 [address]ATTN: [place] [address]GA: 11/23/2017 Secondary NOT GIVENUNK [place] Insurance:SELF PAY [facility] Number: Effective Repository Date:2017-10-28 11/06/2017 HU E [id number] E Primary HU E SOURSDOB: [facility], [facility] [id number] [id number]: olicy Number: Hospital [id number] Repository (HP) Date:2017-07-09 [address]ATTN: [place] [address]SH: 11/06/2017 Secondary NOT GIVENUNK [place] Insurance:SELF PAY [facility] Number: Effective Repository Date:2017-07-09 10/26/2017 HU E [id number] E Primary HU E SOURSDOB: [facility], Insurance:CARESOURCEP [id number] [address]Btw: olicy Number: Hospital [id number] Repository (HP) Date:2017-09-11 [address]ATTN: [place] [address]IX: 10/26/2017 Secondary NOT GIVENUNK [place] Insurance:SELF PAY [facility] Number: Effective Repository Date:2017-09-27 10/09/2017 HU E SOURSDOB: Primary HU E SOURSDOB: Scientologist E Insurance:[facility] [id number] [facility] E MAIN System [place] [id number]: [place], [place] Repository Number: Effective [id number]: () Date:2017-07-10 [id number] ()Tel: (800) Name:CD:[id number] O [phone] () [address], [place] [address]HH: 10/02/2017 HU E SOURSDOB: Primary HU E SOURSDOB: Scientologist E Insurance:[facility] [id number] [facility] Number: E MAIN System [place] [id number]: Effective [place] Repository Date:2017-10-02 [id number]: () [id number] Name:CD:[id number] ()Tel: (633) [address], [place] [phone] (AH) [phone]: 10/01/2017 HU E [id number] E Primary HU E SOURSDOB: [facility], Insurance:CARESOURCEP [id number] [facility] [address]Uyw: olicy Number: Hospital [id number] Repository (HP) Date:2017-10-01 [address]ATTN: [place] [address]FD: 10/01/2017 Secondary NOT GIVENUNK [place] Insurance:SELF PAY [facility] Number: Effective Repository Date:2017-10-01 09/26/2017 HU E [id number] E Primary HU E SOURSDOB: [facility], Insurance:CARESOURCEP [id number] [facility] [address]Irz: olicy Number: Hospital [id number] Repository () Date:2017-09-11 [address]ATTN: [place] [address]TM: 09/26/2017 Secondary NOT GIVENUNK [place] Insurance:SELF PAY [facility] Number: Effective Repository Date:2017-09-11 09/17/2017 HU E [id number] E Primary HU E SOURSDOB: [facility], Insurance:CARESOURCEP [id number] [facility] [place] [address]Jsy: olicy Number: Hospital [id number] Repository (HP) Date:2017-08-20 [address]ATTN: [place] [address]AT: 09/17/2017 Secondary NOT GIVENUNK [place] Insurance:SELF PAY [facility] Number: Effective Repository Date:2017-08-20 09/14/2017 HU E [id number] E Primary HU E SOURSDOB: [facility], Insurance:CARESOURCEP [id number] [facility] [address]Qbe: olicy Number: Hospital [id number] Repository (HP) Date:2017-09-14P [address]ATTN: CLAIMS [place] [address]IT: 09/14/2017 Secondary NOT GIVENUNK [place] Insurance:SELF PAY Community [facility]: Effective Repository Date:2017-09-14 09/11/2017 HU E [id number] E Primary HU E SOURSDOB: [facility], Insurance:CARESOURCEP [id number] [facility] [address]Wur: olicy Number: [facility] [id number] Repository (HP) Date:2017-08-31[address]ATTN: [place] [address]IL: 09/11/2017 Secondary NOT GIVENUNK [place] Insurance:SELF PAY Community [facility] Number: Effective Repository Date:2017-08-31 09/09/2017 HU E [id number] E Primary HU E SOURSDOB: [facility], Insurance:CARESOURCEP [id number] [id number]: olicy Number: [facility] [id number] Repository (HP) Date:2015-01-27[address]ATTN: [place] [address]PJ: 09/09/2017 Secondary NOT GIVENUNK [place] Insurance:SELF PAY Community [facility] Number: Effective Repository Date:2017-08-30 09/07/2017 HU E SOURSDOB: Primary HU E SOURSDOB: Scientologist E Insurance:[employer]OURCE [id number] [facility] Number: [place] [id number]: Effective [place], [place] Repository Date:2017-09-07 - [id number]: () [id number] Name:[id number] ()Tel: (803) [address], [place] [phone] (WP) [id number]: 08/27/2017 HU E SOURSDOB: Primary HU E SOURSDOB: Scientologist E Insurance:[facility] [id number] [facility], [facility] [id number]: [place], [place] Repository Number: [facility] [id number]: () Date:2017-06-26 - [id number] ()Tel: (522) Name:[id number] O [phone] () [address] [place] [id number]: 08/27/2017 HU E SOURSDOB: Primary HU E SOURSDOB: [facility] Insurance:[facility] [id number] Three Rep[address] [place], [place] [address]Vsb: Number: [place] [id number]: [id number] () Date:[id number] [address] () [address] [place] [id number]: 08/15/2017 HU E [id number] E Primary HU E SOURSDOB: [facility], [facility] [id number] [facility] [address]Ybr: [facility] Number: [facility] [id number] Repository () Date:2017-08-07[address]ATTN: [place] [address]PP: 08/15/2017 Secondary NOT GIVENUNK [place] Insurance:SELF PAY [facility] Number: Effective Repository Date:2017-08-07
== END 2018-08-19 11:15 | disposition home or self-care (01) ==
PROVIDERS: Admitting Provider Family Medicine; Family Provider Internal Medicine; PCP Internal Medicine; Referring Provider Family Medicine; Visit Provider Internal Medicine
DX: R07.89 Other chest pain (principal); I25.10 Atherosclerotic heart disease of native coronary artery without angina pectoris; G47.33 Obstructive sleep apnea (adult) (pediatric); E78.5 Hyperlipidemia, unspecified; I10 Essential (primary) hypertension; E11.9 Type 2 diabetes mellitus without complications; E66.9 Obesity, unspecified; F20.9 Schizophrenia, unspecified; F41.9 Anxiety disorder, unspecified; F32.9 Major depressive disorder, single episode, unspecified; R00.1 Bradycardia, unspecified; Z95.5 Presence of coronary angioplasty implant and graft; Z68.37 Body mass index [BMI] 37.0-37.9, adult; Z71.3 Dietary counseling and surveillance; Z79.899 Other long term (current) drug therapy; Z79.4 Long term (current) use of insulin; Z79.02 Long term (current) use of antithrombotics/antiplatelets; Z79.82 Long term (current) use of aspirin; Z87.891 Personal history of nicotine dependence
CPT/HCPCS: 36415; 80048; 80061; 82962; 83735; 84484; 85025; 85610; 85730; 93005; 93458; 96361; 96374; 99152; 99153; 99218; 99284; 99406; J7030; Q9967; C1769; C1894; G0378; G0379